=== PATIENT | female | born 1945 | race Caucasian/White ===

== ENCOUNTER 2016-11-15 09:51 | Inpatient (IN) | payer OTHER ==
[2016-11-15 09:56] VITALS: BMI 32.0
--- NOTE | 2016-11-15 10:12 | DR.GENAD ---
HPI - PCP Primary Care Physician: GLEN - Complaint/Symptoms Chief Complaint Doctors Comments: History of gi problems on zofran, phenergan and protonix. Complaint of vomiting diarrhea and burning in stomach Chief Complaint:: PT. C/O CHEST BURNING, N/V, AND UNABLE TO EAT X 4 DAYS. - Nurses notes reviewed Nurses Notes Review: Yes - Source History Provided: Patient - Mode of Arrival Mode of Arrival: Ambulatory - Timing Onset of Chief Complaint: 11/11/16 Came on: Gradually - Duration Duration: Intermittent How lon Duration: Days - Location Location: food - Severity Severity: Moderate - Modifying Factors Worsens:: food - Associated Signs and Symptoms Associated Signs and Symptoms: confusion PMH - PMH Past Medical History: Yes Past Medical History: Coronary Artery Disease, Diabetes, Hypertension, Hypothyroidism Past Surgical History: Yes Surgical History: Cholecystectomy, Hysterectomy, Mastectomy, Tonsillectomy - Family History History of Family Medical Conditions: Yes Family Medical History: Diabetes Mellitus, [place] - Social History Does patient currently use any type of tobacco product: No Have you used tobacco products in the last 12 months: No Type of Tobacco Use: None Does any household member use tobacco: No Alcohol Use: None Do you use any recreational Drugs:: No Lives With: Spouse Lives Where: Home - infectious screening In the last 2 months have you had wt loss of >10#?: NO Have you had fever, night sweats or hemotysis?: No Have you traveled outside the country in the last 6 months?: No Isolation: Standard ROS - Review of Systems Constitutional: No Symptoms Reported Eyes: No Symptoms Reported ENTM: No Symptoms Reported Respiratoy: No Symptoms Reported Cardiovascular: No Symptoms Reported Gastrointestinal/Abdominal: Diarrhea, Nausea, Vomiting Genitourinary: No Symptoms Reported Musculoskeletal: No Symptoms Reported Integumentary: No Symptoms Reported Hematologic/Lymphatic: No Symptoms Reported Endocrine: Increased Thirst Psychiatric: Depression All Other Systems: Reviewed and Negative PE - Vital Signs Vitals: Temperature 97.3 F Pulse Rate 100 Respiratory Rate 17 Blood Pressure [Left Arm] 171/93 Blood Pressure [Right Arm] 166/72 Blood Pressure 166/87 O2 Sat by Pulse Oximetry 95 - General Limitations: No Limitations General Appearance: Alert, In No Apparent Distress - Head Head Exam: Normal Inspection - Eyes Eye exam: Normal Appearance, EOMI. negative: Scleral Icterus, Conjunctival Injection - ENT ENT Exam: Normal Exam, Normal Oropharynx External Ear Exam: Normal External Inspection Mouth Exam: Normal Inspection - Neck Neck Exam: Normal Inspection, Full ROM, Trachea Midline - Chest Chest Inspection: Normal Inspection - Respiratory Respiratory Exam: Normal Lung Sounds Bilat. negative: Accessory Muscle Use, Respiratory Distress Respiratory Exam: Bilateral Clear to Auscultation - Cardiovascular Cardiovascular Exam: Tachycardia - Abdominal Exam Abdominal Exam: Normal Inspection, Normal Bowel Sounds, Soft. negative: Distention, Tenderness, Guarding - Extremities Extremities Exam: Normal Inspection, Full ROM - Neurologic Neurological Exam: Alert, Oriented X3, CN II-XII Intact - Psychiatric Psychiatric Exam: Depressed - Skin Skin Exam: Intact, Normal Color ROR - Labs Reviewed Result Diagrams: 11/19/16 05:55 11/19/16 05:55 Laboratory: WBC 14.1 X10^3/uL (3.6-10.0) H 11/15/16 11:10 RBC 4.90 X10^6/uL (3.5-5.4) 11/15/16 11:10 Hgb 14.2 g/dL (12.0-16.0) 11/15/16 11:10 Hct 42.1 % (36.0-47.0) 11/15/16 11:10 MCV 85.9 fL (80.0-100.0) 11/15/16 11:10 MCH 29.1 pg (27.0-34.0) 11/15/16 11:10 MCHC 33.8 g/dL (33.0-35.0) 11/15/16 11:10 RDW 12.9 % (11.6-16.5) 11/15/16 11:10 Plt Count 301 X10^3/uL (150.0-450.0) 11/15/16 11:10 MPV 9.9 fL (7.4-11.0) 11/15/16 11:10 Neut % 71.5 % (42.0-75.0) 11/15/16 11:10 Lymph % 18.4 % (21.0-51.0) L 11/15/16 11:10 [place] % 9.6 % (0.0-13.0) 11/15/16 11:10 Eos % 0.0 % (0.9-2.9) L 11/15/16 11:10 Baso % 0.5 % (0.2-1.0) 11/15/16 11:10 Neut # 10.1 x10^3/uL (2.2-4.8) H 11/15/16 11:10 Lymph # 2.6 X10^3/uL (1.3-2.9) 11/15/16 11:10 [place] # 1.4 x10^3/uL (0.3-0.8) H 11/15/16 11:10 Eos # 0.0 x10^3/uL (0.0-0.2) 11/15/16 11:10 Baso # 0.1 X10^3/uL (0.0-0.1) 11/15/16 11:10 Absolute Nucleated RBC 0.0 /100WBC 11/15/16 11:10 Sodium 128 mmol/L (136-145) L 11/15/16 11:10 Corrected Sodium 133 mmol/L (136-145) L 11/15/16 11:10 Potassium 3.9 mmol/L (3.5-5.1) 11/15/16 11:10 Chloride 91 mmol/L (98-107) L 11/15/16 11:10 Carbon Dioxide 22.5 mmol/L (21-32) 11/15/16 11:10 BUN 49 mg/dL (7-18) H 11/15/16 11:10 Creatinine 1.38 mg/dL (0.55-1.02) H 11/15/16 11:10 Est GFR (MDRD) Af Amer 48 (>60) L 11/15/16 11:10 Est GFR (MDRD) Non-Af 40 (>60) L 11/15/16 11:10 Glucose 297 mg/dL (65-99) H 11/15/16 11:10 Calcium 8.3 mg/dL (8.5-10.1) L 11/15/16 11:10 Corrected Calcium TNP 11/15/16 11:10 Total Bilirubin 0.40 mg/dL (0.2-1.0) 11/15/16 11:10 AST 38 Units/L (15-37) H 11/15/16 11:10 ALT 42 Units/L (12-78) 11/15/16 11:10 Alkaline Phosphatase 57 Units/L (46-116) 11/15/16 11:10 Troponin I 0.04 ng/mL (0-1.5) 11/15/16 11:10 Total Protein 7.4 g/dL (6.4-8.2) 11/15/16 11:10 Albumin 3.8 g/dL (3.4-5.0) 11/15/16 11:10 Globulin 3.6 g/dL (2.5-4.5) 11/15/16 11:10 Albumin/Globulin Ratio 1.1 Ratio (1.1-2.1) 11/15/16 11:10 Amylase 143 Units/L (25-115) H 11/15/16 11:10 Lipase 2176 Units/L (73-393) H 11/15/16 11:10 - XRAY XRAY Interpreted by: Radiologist XRAY Findings: AAS: normal - Diagnosis Discharge Problem: Pancreatitis Qualifiers: Chronicity: acute Pancreatitis type: idiopathic Acute pancreatitis complication : unspecified Qualified Code(s): K85.00 - Idiopathic acute pancreatitis without necrosis or infection - Discharge Plan Disposition: ADMITTED INPATIENT Condition: Stable - Follow ups/Referrals - Instructions
[2016-11-15] MEDS ORDERED: ZOFRAN INJ 4 MG VIAL IVP ONE ×2 (10:26→12:54)
[2016-11-15] MEDS ORDERED: NS 500 ML IV 500 ML IV ONE (10:26)
[2016-11-15] MEDS ORDERED: PROTONIX INJ 40 MG VIAL IVP ONE (10:27)
[2016-11-15] MEDS ORDERED: ZOFRAN INJ 4 MG VIAL ONE (10:32)
[2016-11-15] MEDS ORDERED: NS 1000 ML 1,000 ML ONE (10:32)
[2016-11-15] MEDS ORDERED: PROTONIX INJ 40 MG VIAL ONE (10:32)
[2016-11-15 11:26] LABS: BASOPHILS # (AUTO) 0.1 X10^3/uL (0.0-0.1); BASOPHILS % (AUTO) 0.5 % (0.2-1.0); HEMATOCRIT 42.1 % (36.0-47.0); HEMOGLOBIN 14.2 g/dL (12.0-16.0); LYMPHOCYTES # (AUTO) 2.6 X10^3/uL (1.3-2.9); LYMPHOCYTES % (AUTO) 18.4 % (21.0-51.0); MEAN CORPUSCULAR HEMOGLOBIN 29.1 pg (27.0-34.0); MEAN CORPUSCULAR HGB CONC 33.8 g/dL (33.0-35.0); MEAN CORPUSCULAR VOLUME 85.9 fL (80.0-100.0); MEAN PLATELET VOLUME 9.9 fL (7.4-11.0); MONOCYTES # (AUTO) 1.4 x10^3/uL (0.3-0.8); MONOCYTES % (AUTO) 9.6 % (0.0-13.0); NEUTROPHILS # (AUTO) 10.1 x10^3/uL (2.2-4.8); NEUTROPHILS % (AUTO) 71.5 % (42.0-75.0); PLATELET COUNT 301 X10^3/uL (150.0-450.0); RED CELL DISTRIBUTION WIDTH 12.9 % (11.6-16.5); WHITE BLOOD COUNT 14.1 X10^3/uL (3.6-10.0)
[2016-11-15 11:45] LABS: ALANINE AMINOTRANSFERASE 42 Units/L (12-78); ALBUMIN 3.8 g/dL (3.4-5.0); ALKALINE PHOSPHATASE 57 Units/L (46-116); AMYLASE 143 Units/L (25-115); ASPARTATE AMINO TRANSFERASE 38 Units/L (15-37); BLOOD UREA NITROGEN 49 mg/dL (7-18); CALCIUM 8.3 mg/dL (8.5-10.1); CARBON DIOXIDE 22.5 mmol/L (21-32); CHLORIDE 91 mmol/L (98-107); COR NA(FOR HYPERGLY) 133 mmol/L (136-145); CREATININE 1.38 mg/dL (0.55-1.02); GLUCOSE 297 mg/dL (65-99); SODIUM 128 mmol/L (136-145); TOTAL PROTEIN 7.4 g/dL (6.4-8.2); TROPONIN I 0.04 ng/mL (0-1.5); eGFR BLACK RACES 48 (>60); eGFR NON BLACK RACES 40 (>60)
[2016-11-15 11:46] LABS: LIPASE 2176 Units/L (73-393)
[2016-11-15] MEDS ORDERED: PHENERGAN INJ 25 MG ONE (11:53)
[2016-11-15] MEDS ORDERED: PHENERGAN INJ 25 MG IV ONE (11:53)
--- NOTE | 2016-11-15 11:58 | RAD ---
HISTORY: Burning in chest, nausea, vomiting Study: Acute abdominal series Comparison: June 27, 2016 Findings: The trachea is midline. The cardiac silhouette is unremarkable. The lungs are clear without focal infiltrate or effusion. The bony thorax is unremarkable. Flat plate and upright evaluation of the abdomen demonstrates a nonspecific, nonobstructive bowel ga s pattern. No pneumoperitoneum is identified.. No pathological soft tissue mass or calcification ca n be observed. The bony structures are grossly intact. IMPRESSION: 1. No acute cardiopulmonary disease. 2. No evidence for acute abdominal pathology identified. Reported By:
[2016-11-15] MEDS ORDERED: ZOFRAN INJ 4 MG VIAL IVP PRN (12:56)
--- NOTE | 2016-11-15 14:29 | CT ---
HISTORY: Nausea, abdominal pain Study: CT abdomen pelvis without contrast Comparison: May 22, 2016 Technique: Axial non contrast images with coronal and sagittal reformats. Dose reduction procedures were used with MA/kv adjusted for body size. The lack of intravenous and oral contrast placs limitat ions on this examination. Findings: The lung bases are clear. There is a hiatal hernia present. The liver, spleen, adrenal glands are no rmal. The tail and body of the pancreas is normal. The head of the pancreas is upper limits normal i n size and there appear to be some areas of decreased attenuation within the head of the pancreas wh ich could be related to inflammation or less likely mass. Pancreatic protocol CT with and without co ntrast is recommended for further evaluation. The kidneys are unobstructed and without stones. No ur eteral calculi are identified. Calcific atherosclerotic change is present in a nondilated abdominal aorta. No intraperitoneal or retroperitoneal lymphadenopathy of significance is identified. There ar e no findings suggestive of diverticulitis or colitis. Examination of the pelvis demonstrated no asmita dence for pelvic masses, pelvic fluid, or pelvic lymphadenopathy no significant bladder abnormality is identified. No lytic or blastic skeletal lesions are identified. IMPRESSION: No definite findings suggestive of acute pancreatitis however there is a question of some irregular lucency within the pancreatic head. Evaluation with pancreatic protocol enhance unenhanced CT is rec ommended in order to do term if there is a significant abnormality in the pancreatic head. Small hiatal hernia Reported By:
[2016-11-15] MEDS: INVANZ INJ 1 GM VIAL 0.5 GM in NS 50 ML IV 50 ML IV SCH ×2 (15:36→21:37)
[2016-11-15] MEDS: NS 1000 ML 1,000 ML IV SCH (15:37)
[2016-11-15] MEDS ORDERED: PHENERGAN INJ 25 MG IM PRN (20:51)
[2016-11-15] MEDS ORDERED: HumuLIN R SC PRN (20:54)
[2016-11-15] MEDS: DILAUDID INJ IVP PRN (21:38)
[2016-11-16] MEDS: DILAUDID INJ IVP PRN ×2 (01:18→22:32)
[2016-11-16 05:11] LABS: AMYLASE 137 Units/L (25-115)
[2016-11-16 05:14] LABS: LIPASE 2011 Units/L (73-393)
[2016-11-16 05:29] LABS: ALBUMIN 3.3 g/dL (3.4-5.0); CARBON DIOXIDE 25.8 mmol/L (21-32); COR CA(FOR HYPOALB) 8.6 mg/dL (8.5-10.1); CREATININE 1.28 mg/dL (0.55-1.02); TOTAL PROTEIN 6.5 g/dL (6.4-8.2)
[2016-11-16] MEDS ORDERED: K-DUR TAB 20 MEQ PO PRN (05:39)
[2016-11-16] MEDS ORDERED: POTASSIUM CHLORIDE LIQ 20 MEQ UDC PO PRN (05:39)
[2016-11-16] MEDS ORDERED: K-LYTE EFFERVESCENT PO PRN (05:39)
[2016-11-16] MEDS ORDERED: K-RIDER 10 MEQ/NS 100 ML 10 MEQ/100 ML BAG IV PRN (05:39)
[2016-11-16] MEDS: NS 1000 ML 1,000 ML IV SCH ×4 (05:47→22:30)
[2016-11-16 06:41] LABS: BASOPHILS # (AUTO) 0.1 X10^3/uL (0.0-0.1); BASOPHILS % (AUTO) 0.5 % (0.2-1.0); EOSINOPHILS # (AUTO) 0.1 x10^3/uL (0.0-0.2); EOSINOPHILS % (AUTO) 1.1 % (0.9-2.9); HEMATOCRIT 40.7 % (36.0-47.0); HEMOGLOBIN 13.5 g/dL (12.0-16.0); LYMPHOCYTES # (AUTO) 4.4 X10^3/uL (1.3-2.9); LYMPHOCYTES % (AUTO) 37.1 % (21.0-51.0); MEAN CORPUSCULAR HEMOGLOBIN 28.7 pg (27.0-34.0); MEAN CORPUSCULAR HGB CONC 33.2 g/dL (33.0-35.0); MEAN CORPUSCULAR VOLUME 86.5 fL (80.0-100.0); MONOCYTES # (AUTO) 1.4 x10^3/uL (0.3-0.8); MONOCYTES % (AUTO) 11.8 % (0.0-13.0); NEUTROPHILS # (AUTO) 5.9 x10^3/uL (2.2-4.8); NEUTROPHILS % (AUTO) 49.5 % (42.0-75.0); PLATELET COUNT 350 X10^3/uL (150.0-450.0); RED BLOOD COUNT 4.71 X10^6/uL (3.5-5.4); RED CELL DISTRIBUTION WIDTH 12.9 % (11.6-16.5); WHITE BLOOD COUNT 11.9 X10^3/uL (3.6-10.0)
[2016-11-16] MEDS: INVANZ INJ 1 GM VIAL 1 GM in NS 50 ML IV + SPIKE MINIBAG* 50 ML IV SCH (09:03)
[2016-11-16] MEDS ORDERED: ZANAFLEX PO PRN (11:09)
[2016-11-16] MEDS: PROTONIX TAB 40 MG PO SCH (11:56)
[2016-11-16] MEDS: TRICOR TAB 145 MG PO SCH (11:56)
[2016-11-16] MEDS: NORVASC TAB 10 MG PO SCH (11:56)
[2016-11-16 16:21] LABS: BILIRUBIN,URINE NEGATIVE (NEGATIVE); BLOOD/HEMOGLOBIN,URINE NEGATIVE (NEGATIVE); GLUCOSE, URINE NEGATIVE (NEGATIVE); KETONES,URINE NEGATIVE (NEGATIVE); LEUKOCYTE ESTERASE ,URINE 1+ (NEGATIVE); NITRITES,URINE NEGATIVE (NEGATIVE); PROTEIN,URINE 3+ (NEGATIVE); UROBILINOGEN,URINE NORMAL (NORMAL)
[2016-11-16] MEDS: SYNTHROID 125 mcg TAB PO SCH (16:25)
[2016-11-16 16:34] LABS: COLOR,URINE YELLOW (YELLOW)
[2016-11-16 16:35] LABS: APPEARANCE,URINE CLEAR (CLEAR); BACTERIA,URINE TRACE /HPF (NEGATIVE); RBC,URINE NEGATIVE /HPF (NEGATIVE); SQUAMOUS EPITHELIAL CELL,UR RARE /HPF (NEGATIVE)
--- NOTE | 2016-11-16 16:42 | DR.H&P ---
H&P - History & Physical for Day of: H&P Date: 11/15/16 - Chief Complaint Chief Complaint: NAUSEA, VOMITING, ABDOMINAL PAIN - Allergies Allergies/Adverse Reactions: Allergies Allergy/AdvReac Type Severity Reaction Status Date / Time Acetaminophen [From Lortab] Allergy Verified 11/15/16 09:56 Aluminum Hydroxide Allergy Verified 11/15/16 09:56 [From Ascriptin] Aripiprazole [From Abilify] Allergy Verified 11/15/16 09:56 Aspirin [From Ascriptin] Allergy Verified 11/15/16 09:56 Bee Pollen Allergy Verified 11/15/16 09:56 Calcium Carbonate Allergy Verified 11/15/16 09:56 [From Ascriptin] Coconut Oil Allergy Verified 11/15/16 09:56 Codeine Allergy Verified 11/15/16 09:56 Hydrocodone [From Lortab] Allergy Verified 11/15/16 09:56 Latex Allergy Verified 11/15/16 09:56 Levetiracetam [From Keppra] Allergy Verified 11/15/16 09:56 Metformin Allergy Verified 11/15/16 09:56 Niacin Allergy Verified 11/15/16 09:56 Oxycodone [From Percocet] Allergy Verified 11/15/16 09:56 Pregabalin [From Lyrica] Allergy Verified 11/15/16 09:56 Propoxyphene [From Darvon-N] Allergy Verified 11/15/16 09:56 Propranolol [From Inderal LA] Allergy Verified 11/15/16 09:56 Red Dye Allergy Verified 11/15/16 09:56 Rosuvastatin [From Crestor] Allergy Verified 11/15/16 09:56 - History of Present Illness History of Present Illness: THIS IS A 71 YEAR OLD FEMALE, WHO IS A PATIENT OF DR. CONNELL. SHE PRESENTS TO THE EMERGENCY ROOM WITH COMPLAINTS OF NAUSEA, VOMITING, AND ABDOMINAL PAIN. SHE IS ALSO REPORTING BURNING SENSATION IN HER STOMACH. SHE STATES SHE HAS BEEN UNABLE TO EAT FOR FOUR DAYS. SHE REPORTS DIARRHEA ALSO. LABS, CT OBTAINED IN ER. CBC WNL EXCEPT: WBC 14.1. CMP WNL EXCEPT: SODIUM 128, CHL 91, BUN/CREAT 49/1.38. GFR 40, GLUCOSE 297, CALCIUM 8.3. AMYLASE 143, LIPASE 2176. EKG: SINUS RHYTHM, RATE 99. CT OF ABD/PELVIS: IRREGULAR LUCENCY WITHING THE PANCREATIC HEAD; SMALL HIATAL HERNIA. WE WILL ADMIT PATIENT FOR FURTHER TREATMENT AND EVALUATION. WE WILL TREAT PATIENT FOR ACUTE PANCREATITIS AND DEHYDRATION. WE WILL FOLLOW UP IN AM WITH LABS. - Past Medical History Past Medical History: Anemia, Anxiety, Arthritis, COPD, Coronary Artery Disease , Diabetes, Dyslipidemia, GERD, Hypertension, Hypothyroidism, Renal Disease Additional Medical History: Diabetic Neuropathy, Chronic Back Pain, Fibrocystic Breast Disease, Crohns Disease, Fibromyalgia, Mitral Valve Leak, Valvular Heart Disease, Bronchitits, Uterine Fibroids, Diarrhea, Fibromyalgia, Restless Leg Syndrome, Parathyroid Disease, Previous Blood Transfusion - Past Surgical History Surgical History: Cholecystectomy, Hysterectomy, Mastectomy, Tonsillectomy, Other Additional Surgical History: Bilateral Mastectomy due to stones - Family History Family Medical History: Diabetes Mellitus, [place] - Social History Does patient currently use any type of tobacco product: No Have you used tobacco products in the last 12 months: No Type of Tobacco Use: None Does any household member use tobacco: No Alcohol Use: None Drug Use: None - Medications Home Medications: Amlodipine Besylate [NORVASC 10 MG *] 10 mg PO DAILY 05/22/16 Eszopiclone [Lunesta] 1 tab PO HS 05/22/16 Fenofibrate [TRICOR 145 MG *] 145 mg PO DAILY 05/22/16 Insulin Degludec [Tresiba Flextouch] 40 unit SC HS 05/22/16 Levocetirizine Dihydrochloride [Levocetirizine Dihydrochl] 5 mg PO HS Levothyroxine Sodium [SYNTHROID 125 mcg *] 1 tab PO DAILYAC 05/22/16 Pantoprazole Sodium 40 mg [PROTONIX 40 MG *] 1 tab PO DAILY 05/22/16 Ranitidine HCl [Zantac] 300 mg PO HS 05/22/16 Ropinirole Hydrochloride [Ropinirole HCl] 0.5 mg PO HS 05/22/16 Tizanidine HCl [Zanaflex] 4 mg PO Q8H PRN 05/22/16 Tramadol HCl [ULTRAM 50 MG *] 1 - 2 tab PO QID PRN 05/22/16 Gabapentin 800 mg PO TIDWM 05/23/16 Insulin Lispro (Human) [Humalog Kwikpen] 0 units SUBCUT QID PRN 06/27/16 Potassium Chloride Cap [MICRO K EXTENCAP 10 mEQ *] 10 meq PO DAILY #30 cap Chlorthalidone [HYGROTON 25 mg tab *] 25 mg PO BID 11/15/16 Venlafaxine HCl [Venlafaxine HCl ER] 150 mg PO DAILY 11/15/16 - Review of Systems Constitutional: Weakness, Malaise Eyes: No Symptoms Reported. denies: Pain, Vision Change, Conjunctivae Inflammation, Eyelid Inflammation, Redness ENT: No Symptoms Reported. denies: Ear Pain, Ear Discharge, Nose Pain, Nose Discharge, Nose Congestion, Mouth Pain, Mouth Swelling, Throat Pain, Throat Swelling Respiratory: No Symptoms Reported. denies: Cough, Shortness of Breath, Hemoptysis, SOB with Excertion, Pleuritic Pain, Sputum, Wheezing Cardiovascular: No Symptoms Reported. denies: Chest Pain, Palpitations, Orthopnea, Paroxysmal Noc. Dyspnea, Edema, Light Headedness Gastrointestinal: Nausea, Vomiting, Abdominal Pain, Diarrhea. denies: Constipation, Melena, Hematochezia Genitourinary: No Symptoms Reported. denies: Dysuria, Frequency, Incontinence, Hematuria, Retention Musculoskeletal: No Symptoms Reported. denies: Shoulder Pain, Arm Pain, Back Pain, Hand Pain, Leg Pain, Foot Pain, Neck Pain Skin: No Symptoms Reported. denies: Rash, Lesions, Jaundice, Bruising, Wound, Ecchymosis Neurological: No Symptoms Reported. denies: Weakness, Numbness, Incoordination , Change in Speech, Confusion, Seizures - Physical Exam Vital Signs: Temperature 97.5 F Pulse Rate [Left Brachial] 84 Respiratory Rate 20 Blood Pressure [Left Arm] 152/69 O2 Sat by Pulse Oximetry 98 Oriented: Normal, Time, Person, Place Eyes: Normal. negative: Blurred Vision, Diplopia, Discharge, Pain, Redness, Photophobia Ear: Normal. negative: Swelling, Ecchymosis, Hemotypanum, Abrasion, Laceration Nose: Normal. negative: Injected, Discharge, Blood Throat: Dry. negative: Tonsillar Hypertrophy, Exudate Respiratory: Clear Throughout Cardiovascular: Normal. negative: Murmur, Edema : Normal. negative: Dysuria, Hematuria, Frequency, Discharge, Bleeding, Auscultation: Bowel Sounds: Decreased. negative: Bruit Palpation: Normal. negative: Spleen Enlarged, Liver Enlarged, Mass Pulsatile Tenderness: Diffuse, Suprapubic, Severe. negative: Rebound, Guarding, Rigidity Skin: Decreased Turgur. negative: Diaphoresis, Wound, Bruising, Ecchymosis Musculoskeletal: Instability Psychiatric: Normal Mood Description: Calm, Appropriate Affect: Normal Speech Pattern: Clear, Appropriate - Assessment/Plan (1) Pancreatitis Qualifiers: Chronicity: acute Pancreatitis type: idiopathic Acute pancreatitis complication: A Status: Acute Plan: ADMIT PATIENT, START IV INVANZ, IV FLUIDS, HOLD NPO, MONITOR LABS. (2) Abdominal pain Qualifiers: Abdominal location: generalized Qualified Code(s): R10.84 - Generalized abdominal pain Status: Acute Plan: START IV FLUIDS, PROTONIX, DILAUDID NEEDED, MONITOR. (3) Dehydration Status: Acute Plan: ABOVE. (4) COPD (chronic obstructive pulmonary disease) Qualifiers: Chronic bronchitis type: C Emphysema type: E Status: Chronic (5) Crohn's disease Qualifiers: Gastrointestinal tract location: G Digestive disease complication type: D Status: Chronic (6) Diabetes mellitus, type 2 Qualifiers: Diabetes mellitus complication status: with kidney complications Diabetes mellitus complication detail: with chronic kidney disease Diabetic retinopathy severity: D Proliferative retinopathy type: P Diabetes mellitus macular edema: D Diabetes mellitus terminal operations manager insulin use: with terminal operations manager use Laterality: L Chronic kidney disease stage: C Status: Chronic (7) Fibromyalgia Status: Chronic (8) GERD (gastroesophageal reflux disease) Qualifiers: Esophagitis presence: esophagitis presence not specified Qualified Code(s) : K21.9 - Gastro-esophageal reflux disease without esophagitis Status: Chronic (9) History of anemia Status: Chronic (10) Hyperlipidemia Qualifiers: Hyperlipidemia type: mixed hyperlipidemia Qualified Code(s): E78.2 - Mixed hyperlipidemia Status: Chronic (11) Hypothyroidism Qualifiers: Hypothyroidism type: acquired Qualified Code(s): E03.9 - Hypothyroidism, unspecified Status: Chronic (12) Parathyroid disease Status: Chronic (13) Renal disease Status: Chronic (14) Valvular heart disease Status: Chronic (15) Arthritis Status: Chronic
--- NOTE | 2016-11-16 17:32 | PCM.PROG ---
Progress Note - Progress Note for Day of Date: 11/16/16 - Subjective Subjective: PATIENT RESTS IN BED, REPORTS ABDOMINAL PAIN CONTINUES. SHE ALSO REPORTS NAUSEA THIS MORNING. SHE IS NPO EXCEPT ICE CHIPS. UPON PALPATION, ABDOMEN IS NOTED WITH DIFFUSE, SEVERE TENDERNESS. CBC WNL EXCEPT: WBC 11.9. CMP WNL EXCEPT: POTASSIUM 3.1, BUN/CREAT 37/1.28, GFR 44, GLUCOSE 123, CALCIUM8.0, ALBUMIN 3.3. AMYLASE 137. LIPASE 2011. WE WILL CONTINUE IV FLUIDS , HOLD PATIENT NPO, CONTINUE INVANZ, DILAUDID, PROTONIX, AND CONTINUE TO MONITOR. - Past Medical Family Social History Past Med/Fam/Surg Hx: No changes since H&P Allergies: Allergies Acetaminophen [From Lortab] Allergy (Verified 11/15/16 09:56) Aluminum Hydroxide [From Ascriptin] Allergy (Verified 11/15/16 09:56) Aripiprazole [From Abilify] Allergy (Verified 11/15/16 09:56) Aspirin [From Ascriptin] Allergy (Verified 11/15/16 09:56) Bee Pollen Allergy (Verified 11/15/16 09:56) Calcium Carbonate [From Ascriptin] Allergy (Verified 11/15/16 09:56) Coconut Oil Allergy (Verified 11/15/16 09:56) Codeine Allergy (Verified 11/15/16 09:56) Hydrocodone [From Lortab] Allergy (Verified 11/15/16 09:56) Latex Allergy (Verified 11/15/16 09:56) Levetiracetam [From Keppra] Allergy (Verified 11/15/16 09:56) Metformin Allergy (Verified 11/15/16 09:56) Niacin Allergy (Verified 11/15/16 09:56) Oxycodone [From Percocet] Allergy (Verified 11/15/16 09:56) Pregabalin [From Lyrica] Allergy (Verified 11/15/16 09:56) Propoxyphene [From Darvon-N] Allergy (Verified 11/15/16 09:56) Propranolol [From Inderal LA] Allergy (Verified 11/15/16 09:56) Red Dye Allergy (Verified 11/15/16 09:56) Rosuvastatin [From Crestor] Allergy (Verified 11/15/16 09:56) - Review of Systems ROS: No change since H&P - Vital Signs and I&O's Vital Signs: Temperature 97.5 F Pulse Rate [Left Brachial] 84 Respiratory Rate 20 Blood Pressure [Left Arm] 152/69 O2 Sat by Pulse Oximetry 98 Intake and Output: Intake & Output 11/14/16 11/15/16 11/16/16 11/17/16 11:59 11:59 11:59 11:59 Intake Total 640 400 Output Total 200 Balance 440 400 - Physical Exam Oriented: Normal, Time, Person, Place Eyes: Normal. negative: Blurred Vision, Diplopia, Discharge, Pain, Redness, Photophobia Ear: Normal. negative: Swelling, Ecchymosis, Hemotypanum, Abrasion, Laceration Nose: Normal. negative: Injected, Discharge, Blood Throat: Dry. negative: Tonsillar Hypertrophy, Exudate Respiratory: Normal Cardiovascular: Normal. negative: Murmur, Edema : Normal. negative: Dysuria, Hematuria, Frequency, Discharge, Bleeding, Auscultation: Bowel Sounds: Decreased. negative: Bruit Palpation: Normal. negative: Spleen Enlarged, Liver Enlarged, Mass Pulsatile Tenderness: Diffuse, Suprapubic, Severe. negative: Rebound, Guarding, Rigidity Skin: Decreased Turgur. negative: Diaphoresis, Wound, Bruising, Ecchymosis Musculoskeletal: Instability Psychiatric: Normal Mood Description: Calm, Appropriate Affect: Normal Speech Pattern: Clear, Appropriate - Laboratory and Diagnostics Result Diagrams: 11/16/16 05:40 11/16/16 07:56 Labs: Laboratory WBC 11.9 X10^3/uL (3.6-10.0) H 11/16/16 05:40 RBC 4.71 X10^6/uL (3.5-5.4) 11/16/16 05:40 Hgb 13.5 g/dL (12.0-16.0) 11/16/16 05:40 Hct 40.7 % (36.0-47.0) 11/16/16 05:40 MCV 86.5 fL (80.0-100.0) 11/16/16 05:40 MCH 28.7 pg (27.0-34.0) 11/16/16 05:40 MCHC 33.2 g/dL (33.0-35.0) 11/16/16 05:40 RDW 12.9 % (11.6-16.5) 11/16/16 05:40 Plt Count 350 X10^3/uL (150.0-450.0) 11/16/16 05:40 MPV 10.0 fL (7.4-11.0) 11/16/16 05:40 Neut % 49.5 % (42.0-75.0) 11/16/16 05:40 Lymph % 37.1 % (21.0-51.0) 11/16/16 05:40 [place] % 11.8 % (0.0-13.0) 11/16/16 05:40 Eos % 1.1 % (0.9-2.9) 11/16/16 05:40 Baso % 0.5 % (0.2-1.0) 11/16/16 05:40 Neut # 5.9 x10^3/uL (2.2-4.8) H 11/16/16 05:40 Lymph # 4.4 X10^3/uL (1.3-2.9) H 11/16/16 05:40 [place] # 1.4 x10^3/uL (0.3-0.8) H 11/16/16 05:40 Eos # 0.1 x10^3/uL (0.0-0.2) 11/16/16 05:40 Baso # 0.1 X10^3/uL (0.0-0.1) 11/16/16 05:40 Absolute Nucleated RBC 0.3 /100WBC 11/16/16 05:40 Sodium 139 mmol/L (136-145) 11/16/16 03:50 Corrected Sodium 140 mmol/L (136-145) 11/16/16 03:50 Potassium 3.3 mmol/L (3.5-5.1) L 11/16/16 07:56 Chloride 102 mmol/L (98-107) 11/16/16 03:50 Carbon Dioxide 25.8 mmol/L (21-32) 11/16/16 03:50 BUN 37 mg/dL (7-18) H 11/16/16 03:50 Creatinine 1.28 mg/dL (0.55-1.02) H 11/16/16 03:50 Est GFR (MDRD) Af Amer 53 (>60) L 11/16/16 03:50 Est GFR (MDRD) Non-Af 44 (>60) L 11/16/16 03:50 Glucose 123 mg/dL (65-99) H 11/16/16 03:50 Calcium 8.0 mg/dL (8.5-10.1) L 11/16/16 03:50 Corrected Calcium 8.6 mg/dL (8.5-10.1) 11/16/16 03:50 Total Bilirubin 0.30 mg/dL (0.2-1.0) 11/16/16 03:50 AST 27 Units/L (15-37) 11/16/16 03:50 ALT 35 Units/L (12-78) 11/16/16 03:50 Alkaline Phosphatase 52 Units/L (46-116) 11/16/16 03:50 Troponin I 0.04 ng/mL (0-1.5) 11/15/16 11:10 Total Protein 6.5 g/dL (6.4-8.2) 11/16/16 03:50 Albumin 3.3 g/dL (3.4-5.0) L 11/16/16 03:50 Globulin 3.2 g/dL (2.5-4.5) 11/16/16 03:50 Albumin/Globulin Ratio 1.0 Ratio (1.1-2.1) L 11/16/16 03:50 Amylase 137 Units/L (25-115) H 11/16/16 03:50 Lipase 2011 Units/L (73-393) H 11/16/16 03:50 Specimen Type Clean catch urine 11/16/16 15:49 Urine Color Yellow (YELLOW) 11/16/16 15:49 Urine Appearance Clear (CLEAR) 11/16/16 15:49 Urine pH 6.0 (5.0 - 8.0) 11/16/16 15:49 Ur Specific [place] 1.015 (1.000-1.030) 11/16/16 15:49 Urine Protein 3+ (NEGATIVE) 11/16/16 15:49 Urine Glucose (UA) Negative (NEGATIVE) 11/16/16 15:49 Urine Ketones Negative (NEGATIVE) 11/16/16 15:49 Urine Occult Blood Negative (NEGATIVE) 11/16/16 15:49 Urine Nitrite Negative (NEGATIVE) 11/16/16 15:49 Urine Bilirubin Negative (NEGATIVE) 11/16/16 15:49 Urine Urobilinogen Normal (NORMAL) 11/16/16 15:49 Ur Leukocyte Esterase 1+ (NEGATIVE) 11/16/16 15:49 Urine RBC Negative /HPF (NEGATIVE) 11/16/16 15:49 Urine WBC 2 - 3 /HPF (NEGATIVE) 11/16/16 15:49 Ur Squamous Epith Cells Rare /HPF (NEGATIVE) 11/16/16 15:49 Urine Bacteria Trace /HPF (NEGATIVE) 11/16/16 15:49 Ur Culture Indicated? No/not indicated 11/16/16 15:49 Acetone, Semi-Quant Negative (NEGATIVE) 11/15/16 11:10 - Plan (1) Pancreatitis Status: Acute Qualifiers: Chronicity: acute Pancreatitis type: idiopathic Acute pancreatitis complication: A Plan: CONTINUE IV INVANZ, IV FLUIDS, HOLD NPO, MONITOR LABS. (2) Abdominal pain Status: Acute Qualifiers: Abdominal location: generalized Qualified Code(s): R10.84 - Generalized abdominal pain Plan: CONTINUE IV FLUIDS, PROTONIX, DILAUDID NEEDED, MONITOR. (3) Dehydration Status: Acute Plan: ABOVE. 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 insulin use: with buttermilk drier operator use Laterality: L Chronic kidney disease stage: C (7) Fibromyalgia Status: Chronic (8) GERD (gastroesophageal reflux disease) Status: Chronic Qualifiers: Esophagitis presence: esophagitis presence not specified Qualified Code(s) : K21.9 - Gastro-esophageal reflux disease without esophagitis (9) History of anemia Status: Chronic (10) Hyperlipidemia Status: Chronic Qualifiers: Hyperlipidemia type: mixed hyperlipidemia Qualified Code(s): E78.2 - Mixed hyperlipidemia (11) Hypothyroidism Status: Chronic Qualifiers: Hypothyroidism type: acquired Qualified Code(s): E03.9 - Hypothyroidism, unspecified (12) Parathyroid disease Status: Chronic (13) Renal disease Status: Chronic (14) Valvular heart disease Status: Chronic (15) Arthritis Status: Chronic
[2016-11-16] MEDS ORDERED: [UNRECOGNIZED DRUG - OTHER] PO SCH (21:00)
[2016-11-16] MEDS ORDERED: PATIENT'S HOME MEDICATION RESPIRATORY (Ropinirole Hydrochloride [Ropinirole Hcl] 0.5 MG) PO SCH (21:00)
[2016-11-16] MEDS ORDERED: PATIENT'S HOME MEDICATION RESPIRATORY (Levocetirizine Dihydrochloride [Levocetirizine Dihy PO SCH (21:00)
[2016-11-16] MEDS ORDERED: [UNRECOGNIZED DRUG - OTHER] PO SCH (21:00)
[2016-11-16] MEDS: REQUIP PO SCH (22:30)
[2016-11-16] MEDS: ZANTAC PO SCH (22:31)
[2016-11-17] MEDS: NS 1000 ML 1,000 ML IV SCH ×4 (04:40→23:55)
[2016-11-17 06:02] LABS: ALANINE AMINOTRANSFERASE 28 Units/L (12-78); ALBUMIN 2.7 g/dL (3.4-5.0); ALKALINE PHOSPHATASE 46 Units/L (46-116); AMYLASE 139 Units/L (25-115); ASPARTATE AMINO TRANSFERASE 23 Units/L (15-37); BLOOD UREA NITROGEN 22 mg/dL (7-18); CALCIUM 7.8 mg/dL (8.5-10.1); CARBON DIOXIDE 23.3 mmol/L (21-32); CHLORIDE 106 mmol/L (98-107); COR CA(FOR HYPOALB) 8.8 mg/dL (8.5-10.1); CREATININE 0.95 mg/dL (0.55-1.02); GLUCOSE 100 mg/dL (65-99); SODIUM 139 mmol/L (136-145); TOTAL PROTEIN 5.4 g/dL (6.4-8.2); eGFR BLACK RACES > 60 (>60); eGFR NON BLACK RACES > 60 (>60)
[2016-11-17 06:06] LABS: LIPASE 1944 Units/L (73-393)
[2016-11-17 06:22] LABS: BASOPHILS # (AUTO) 0.1 X10^3/uL (0.0-0.1); BASOPHILS % (AUTO) 0.7 % (0.2-1.0); EOSINOPHILS # (AUTO) 0.4 x10^3/uL (0.0-0.2); EOSINOPHILS % (AUTO) 3.9 % (0.9-2.9); HEMATOCRIT 36.8 % (36.0-47.0); HEMOGLOBIN 12.2 g/dL (12.0-16.0); LYMPHOCYTES # (AUTO) 3.5 X10^3/uL (1.3-2.9); MEAN CORPUSCULAR HEMOGLOBIN 28.9 pg (27.0-34.0); MEAN CORPUSCULAR HGB CONC 33.2 g/dL (33.0-35.0); MEAN CORPUSCULAR VOLUME 87.1 fL (80.0-100.0); MEAN PLATELET VOLUME 9.9 fL (7.4-11.0); MONOCYTES # (AUTO) 1.1 x10^3/uL (0.3-0.8); MONOCYTES % (AUTO) 11.8 % (0.0-13.0); NEUTROPHILS # (AUTO) 4.3 x10^3/uL (2.2-4.8); NEUTROPHILS % (AUTO) 45.6 % (42.0-75.0); PLATELET COUNT 275 X10^3/uL (150.0-450.0); RED BLOOD COUNT 4.22 X10^6/uL (3.5-5.4); RED CELL DISTRIBUTION WIDTH 12.5 % (11.6-16.5); WHITE BLOOD COUNT 9.3 X10^3/uL (3.6-10.0)
[2016-11-17] MEDS: NORVASC TAB 10 MG PO SCH (08:45)
[2016-11-17] MEDS: PROTONIX TAB 40 MG PO SCH (08:45)
[2016-11-17] MEDS: INVANZ INJ 1 GM VIAL 1 GM in NS 50 ML IV + SPIKE MINIBAG* 50 ML IV SCH (08:45)
[2016-11-17] MEDS: TRICOR TAB 145 MG PO SCH (08:46)
[2016-11-17] MEDS: SYNTHROID 125 mcg TAB PO SCH (16:42)
[2016-11-17] MEDS: ZANTAC PO SCH (20:58)
[2016-11-17] MEDS: REQUIP PO SCH (20:59)
[2016-11-18] MEDS: DILAUDID INJ IVP PRN ×2 (00:10→12:11)
[2016-11-18] MEDS: NS 1000 ML 1,000 ML IV SCH ×3 (05:41→18:10)
[2016-11-18 06:12] LABS: BASOPHILS # (AUTO) 0.1 X10^3/uL (0.0-0.1); BASOPHILS % (AUTO) 0.8 % (0.2-1.0); EOSINOPHILS # (AUTO) 0.4 x10^3/uL (0.0-0.2); EOSINOPHILS % (AUTO) 5.3 % (0.9-2.9); HEMATOCRIT 34.6 % (36.0-47.0); HEMOGLOBIN 11.4 g/dL (12.0-16.0); LYMPHOCYTES # (AUTO) 3.2 X10^3/uL (1.3-2.9); LYMPHOCYTES % (AUTO) 37.9 % (21.0-51.0); MEAN CORPUSCULAR HEMOGLOBIN 28.7 pg (27.0-34.0); MEAN CORPUSCULAR VOLUME 87.1 fL (80.0-100.0); MEAN PLATELET VOLUME 10.4 fL (7.4-11.0); MONOCYTES # (AUTO) 0.8 x10^3/uL (0.3-0.8); MONOCYTES % (AUTO) 9.6 % (0.0-13.0); NEUTROPHILS # (AUTO) 3.9 x10^3/uL (2.2-4.8); NEUTROPHILS % (AUTO) 46.4 % (42.0-75.0); PLATELET COUNT 271 X10^3/uL (150.0-450.0); RED BLOOD COUNT 3.97 X10^6/uL (3.5-5.4); RED CELL DISTRIBUTION WIDTH 12.6 % (11.6-16.5); WHITE BLOOD COUNT 8.5 X10^3/uL (3.6-10.0)
[2016-11-18 06:33] LABS: ALANINE AMINOTRANSFERASE 27 Units/L (12-78); ALBUMIN 2.7 g/dL (3.4-5.0); ALKALINE PHOSPHATASE 51 Units/L (46-116); AMYLASE 149 Units/L (25-115); ASPARTATE AMINO TRANSFERASE 23 Units/L (15-37); BLOOD UREA NITROGEN 14 mg/dL (7-18); CALCIUM 7.9 mg/dL (8.5-10.1); CARBON DIOXIDE 23.2 mmol/L (21-32); CHLORIDE 107 mmol/L (98-107); COR CA(FOR HYPOALB) 8.9 mg/dL (8.5-10.1); CREATININE 0.76 mg/dL (0.55-1.02); GLUCOSE 95 mg/dL (65-99); SODIUM 140 mmol/L (136-145); TOTAL PROTEIN 5.4 g/dL (6.4-8.2); eGFR BLACK RACES > 60 (>60); eGFR NON BLACK RACES > 60 (>60)
[2016-11-18 06:34] LABS: LIPASE 1840 Units/L (73-393)
[2016-11-18] MEDS: INVANZ INJ 1 GM VIAL 1 GM in NS 50 ML IV + SPIKE MINIBAG* 50 ML IV SCH (09:13)
[2016-11-18] MEDS: PROTONIX TAB 40 MG PO SCH (09:13)
[2016-11-18] MEDS: NORVASC TAB 10 MG PO SCH (09:13)
[2016-11-18] MEDS: TRICOR TAB 145 MG PO SCH (09:13)
--- NOTE | 2016-11-18 13:21 | MRI ---
MRI OF THE ABDOMEN WITHOUT IV CONTRAST Clinical indication: Pancreatitis Procedure: Multiplanar multi sequence MRI of the abdomen were obtained without the administration of intravenous contrast according to standard departmental protocol. Comparisons: CT 11/15/2016 Findings: No significant iron or fat deposition in the liver or spleen. No significant ascites. Liver and spleen are normal in appearance. No focal lesions. Gallbladder appears to be absent. No du ctal dilatation. Pancreas demonstrates normal T1 signal. No pancreatic masses. Adrenal glands are no rmal. Kidneys demonstrate normal cortical medullary differentiation. No hydronephrosis. Visualized b owel is unremarkable. No suspicious lymph nodes. Impression: 1. Significantly limited secondary to patient's inability to hold breath. 2. No definite evidence of acute pancreatitis. Reported By:
[2016-11-18] MEDS: SYNTHROID 125 mcg TAB PO SCH (15:48)
[2016-11-18] MEDS: REQUIP PO SCH (20:31)
[2016-11-18] MEDS: ZANTAC PO SCH (20:31)
[2016-11-19 07:04] LABS: BASOPHILS # (AUTO) 0.1 X10^3/uL (0.0-0.1); BASOPHILS % (AUTO) 0.9 % (0.2-1.0); EOSINOPHILS # (AUTO) 0.4 x10^3/uL (0.0-0.2); EOSINOPHILS % (AUTO) 5.5 % (0.9-2.9); HEMATOCRIT 35.6 % (36.0-47.0); LYMPHOCYTES # (AUTO) 2.7 X10^3/uL (1.3-2.9); LYMPHOCYTES % (AUTO) 36.2 % (21.0-51.0); MEAN CORPUSCULAR HEMOGLOBIN 28.9 pg (27.0-34.0); MEAN CORPUSCULAR HGB CONC 33.7 g/dL (33.0-35.0); MEAN CORPUSCULAR VOLUME 85.8 fL (80.0-100.0); MEAN PLATELET VOLUME 10.1 fL (7.4-11.0); MONOCYTES # (AUTO) 0.8 x10^3/uL (0.3-0.8); MONOCYTES % (AUTO) 10.1 % (0.0-13.0); NEUTROPHILS # (AUTO) 3.5 x10^3/uL (2.2-4.8); NEUTROPHILS % (AUTO) 47.3 % (42.0-75.0); PLATELET COUNT 289 X10^3/uL (150.0-450.0); RED BLOOD COUNT 4.15 X10^6/uL (3.5-5.4); RED CELL DISTRIBUTION WIDTH 12.7 % (11.6-16.5); WHITE BLOOD COUNT 7.4 X10^3/uL (3.6-10.0)
[2016-11-19 07:10] LABS: ALANINE AMINOTRANSFERASE 30 Units/L (12-78); ALBUMIN 2.8 g/dL (3.4-5.0); ALKALINE PHOSPHATASE 52 Units/L (46-116); AMYLASE 139 Units/L (25-115); ASPARTATE AMINO TRANSFERASE 28 Units/L (15-37); BLOOD UREA NITROGEN 10 mg/dL (7-18); CALCIUM 8.4 mg/dL (8.5-10.1); CARBON DIOXIDE 23.7 mmol/L (21-32); CHLORIDE 108 mmol/L (98-107); COR CA(FOR HYPOALB) 9.4 mg/dL (8.5-10.1); COR NA(FOR HYPERGLY) 143 mmol/L (136-145); CREATININE 0.77 mg/dL (0.55-1.02); GLUCOSE 129 mg/dL (65-99); LIPASE > 1500 Units/L (73-393); SODIUM 142 mmol/L (136-145); TOTAL PROTEIN 5.8 g/dL (6.4-8.2); eGFR BLACK RACES > 60 (>60); eGFR NON BLACK RACES > 60 (>60)
[2016-11-19] MEDS: NS 1000 ML 1,000 ML IV SCH (08:27)
[2016-11-19] MEDS: INVANZ INJ 1 GM VIAL 1 GM in NS 50 ML IV + SPIKE MINIBAG* 50 ML IV SCH (08:28)
[2016-11-19] MEDS: NORVASC TAB 10 MG PO SCH (08:28)
[2016-11-19] MEDS: TRICOR TAB 145 MG PO SCH (08:28)
[2016-11-19] MEDS: PROTONIX TAB 40 MG PO SCH (08:28)
[2016-11-19] MEDS ORDERED: ULTRAM PO PRN (09:00)
[2016-11-19] MEDS ORDERED: EFFEXOR XR 150 MG CAP PO SCH (09:00)
[2016-11-19] MEDS ORDERED: [UNRECOGNIZED DRUG - OTHER] PO SCH (12:00)
[2016-11-19] MEDS ORDERED: NEURONTIN CAP 400 MG PO SCH (12:00)
[2016-11-19 12:29] VITALS: BP 163/75
== END 2016-11-19 14:55 | disposition home or self-care (01) | DRG 439 ==
LOC: ER 10:00 → MED/SURG 13:00
PROVIDERS: ADMIT Internal Medicine; ATTEND Internal Medicine
DX: K85.00 Idiopathic acute pancreatitis without necrosis or infection (principal); E86.0 Dehydration; R10.84 Generalized abdominal pain; R11.2 Nausea with vomiting, unspecified; R19.7 Diarrhea, unspecified; R07.89 Other chest pain; I25.10 Atherosclerotic heart disease of native coronary artery without angina pectoris; E11.65 Type 2 diabetes mellitus with hyperglycemia; I10 Essential (primary) hypertension; E03.8 Other specified hypothyroidism; J44.9 Chronic obstructive pulmonary disease, unspecified; M79.7 Fibromyalgia; K21.9 Gastro-esophageal reflux disease without esophagitis; E78.2 Mixed hyperlipidemia; M13.89 Other specified arthritis, multiple sites; K50.90 Crohn's disease, unspecified, without complications; E21.4 Other specified disorders of parathyroid gland; N18.9 Chronic kidney disease, unspecified; R26.89 Other abnormalities of gait and mobility
CPT/HCPCS: 36415; 74022; 74176; 74181; 80053; 81001; 82009; 82150; 83690; 84132; 84484; 85025; 86316; 93005; 93010; 96365; 96367; 96374; 96375; 97535; 99238; 99284; A4216; A4222; C9113; J1335; J2405; J2550

== ENCOUNTER 2018-04-30 03:40 | Inpatient (IN) ==
[2018-04-30 03:48] VITALS: BMI 29.2
--- NOTE | 2018-04-30 04:27 | RAD ---
Chest, one view Indication: Tachycardia, chest pressure Comparison: 11/15/2016 Findings: The cardiac silhouette is unremarkable. The lungs are essentially clear. No significant ple ural effusion or pneumothorax. Impression: No acute chest process. Reported By:
[2018-04-30 04:28] LABS: BASOPHILS # (AUTO) 0.2 X10^3/uL (0.0-0.1); BASOPHILS % (AUTO) 1.5 % (0.2-1.0); EOSINOPHILS # (AUTO) 0.2 x10^3/uL (0.0-0.2); EOSINOPHILS % (AUTO) 1.4 % (0.9-2.9); HEMATOCRIT 45.5 % (36.0-47.0); HEMOGLOBIN 15.3 g/dL (12.0-16.0); LYMPHOCYTES # (AUTO) 4.1 X10^3/uL (1.3-2.9); MEAN CORPUSCULAR HEMOGLOBIN 29.7 pg (27.0-34.0); MEAN CORPUSCULAR HGB CONC 33.7 g/dL (33.0-35.0); MEAN PLATELET VOLUME 8.2 fL (7.4-11.0); MONOCYTES # (AUTO) 1.1 x10^3/uL (0.3-0.8); MONOCYTES % (AUTO) 7.5 % (0.0-13.0); NEUTROPHILS # (AUTO) 8.6 x10^3/uL (2.2-4.8); NEUTROPHILS % (AUTO) 60.6 % (42.0-75.0); PLATELET COUNT 487 X10^3/uL (150.0-450.0); RED BLOOD COUNT 5.17 X10^6/uL (3.5-5.4); RED CELL DISTRIBUTION WIDTH 13.7 % (11.6-16.5); WHITE BLOOD COUNT 14.2 X10^3/uL (3.6-10.0)
[2018-04-30 04:49] LABS: ALANINE AMINOTRANSFERASE 35 Units/L (12-78); ALBUMIN 3.9 g/dL (3.4-5.0); ALKALINE PHOSPHATASE 152 Units/L (46-116); ASPARTATE AMINO TRANSFERASE 24 Units/L (15-37); BLOOD UREA NITROGEN 25 mg/dL (7-18); CALCIUM 9.1 mg/dL (8.5-10.1); CARBON DIOXIDE 18.3 mmol/L (21-32); CKMB % 2.3 % (<4); CREATINE KINASE 88 Units/L (26-192); CREATININE 1.16 mg/dL (0.55-1.02); TOTAL PROTEIN 8.4 g/dL (6.4-8.2); TROPONIN I < 0.02 ng/mL (0-1.5); eGFR NON BLACK RACES 49 (>60)
[2018-04-30 04:53] LABS: CHLORIDE 102 mmol/L (98-107); COR NA(FOR HYPERGLY) 140 mmol/L (136-145); SODIUM 138 mmol/L (136-145)
[2018-04-30] MEDS ORDERED: CARDIZEM SR 120 MG PO ONE (04:54)
[2018-04-30] MEDS: CARDIZEM CD 240 MG PO SCH ×2 (05:19→09:38)
--- NOTE | 2018-04-30 05:33 | DR.GENAD ---
HPI Time Seen Time Seen by Provider: 04/30/18 04:09 PCP Primary Care Physician: BECKI HPI Comment HPI Comment: STARTED GETTING SICK 4 DAYS AGO. WORSE LAST NIGHT. FEELS WEAK, DIZZY AND HAVING NEAR SYNCOPAL EPISODES. BP NOTED TO BE ELEVATED TONIGHT. NO HISTORY OF PREVIOUS EPISODES. DENIES FEVER OR URI SYMPTOMS. PATIENT HAVE ALSO STARTED HAVING CHEST PAIN ACROSS HER CHEST BUT MAINLY ON THE LEFT SIDE. Complaint/Symptoms Chief Complaint Doctors Comments: RAPID HEART RATE, CHEST PAIN AND ELEVATED BLOO D PRESSURE. Chief Complaint:: ELEVATED BP, HIGH HEART RATE AND PRESSURE IN CHEST AREA. FEELS LIKE SOMETHING IS SITTING ON CHEST LEFT SIDE. Self Treatment fo Chief Complaint: TOOK PRESCRIBED MEDS Nurses notes reviewed Nurses Notes Review: Yes Source History Provided: Patient and Family Member Mode of Arrival Mode of Arrival: Ambulatory Timing Onset of Chief Complaint: 05/04/18 Came on: Suddenly Duration Duration: Constant Duration: Days Severity Severity: Moderate Modifying Factors Worsens:: EXERSION Improves:: NONE. Associated Signs and Symptoms Associated Signs and Symptoms: DIZZINESS, GENERALIZE WEAKNESS PMH PMH Past Medical History: Yes Past Medical History: COPD, Coronary Artery Disease, Diabetes, Hypertension and Hypothyroidism Past Surgical History: Yes Surgical History: Cholecystectomy, Hysterectomy, Mastectomy, Tonsillectomy and Other Past Surgical History Comment: RECONSTRUCTION TO BREAST Family History History of Family Medical Conditions: Yes Family Medical History: Diabetes Mellitus and [place] Social History Does any household member use tobacco: No Alcohol Use: None Do you use any recreational Drugs:: No Lives With: Spouse Lives Where: Home infectious screening In the last 2 months have you had wt loss of >10#?: NO Have you had fever, night sweats or hemotysis?: No Have you traveled outside the country in the last 6 months?: No Isolation: Standard ROS Review of Systems Constitutional: Weakness and Fatigue Eyes: No Symptoms Reported ENTM: No Symptoms Reported Respiratoy: No Symptoms Reported Cardiovascular: No Symptoms Reported Gastrointestinal/Abdominal: No Symptoms Reported Genitourinary: No Symptoms Reported Neurological: No Symptoms Reported and Weakness Musculoskeletal: No Symptoms Reported Integumentary: No Symptoms Reported Hematologic/Lymphatic: No Symptoms Reported Endocrine: No Symptoms Reported Psychiatric: No Symptoms Reported All Other Systems: Reviewed and Negative PE Vital Signs Vitals: Temperature 97.1 F Pulse Rate [Apical] 119 Pulse Rate 109 Respiratory Rate 19 Blood Pressure [Left Calf] 161/71 Blood Pressure [Right Calf] 141/94 Blood Pressure [Left Arm] 155/93 Blood Pressure [Right Arm] 166/72 Blood Pressure 180/93 O2 Sat by Pulse Oximetry 96 General Limitations: No Limitations General Appearance: Alert and In No Apparent Distress Head Head Exam: Normal Inspection and Atraumatic Eyes Eye exam: Normal Appearance, PERRL and EOMI; negative Scleral Icterus and Conjunctival Injection ENT ENT Exam: Normal Exam, Normal Oropharynx, Normal External Ear Exam, Mucous Membranes Moist and TM's Normal Bilaterally External Ear Exam: Normal External Inspection TM/Canal Exam: Bilateral: Normal Nose Exam: Normal Nose Exam Mouth Exam: Normal Inspection Throat Exam: Normal Inspection Neck Neck Exam: Normal Inspection and Trachea Midline; negative Tenderness, Meningismus and Lymphadenopathy Chest Chest Inspection: Normal Inspection and Symmetric Chest Wall Rise Respiratory Respiratory Exam: Normal Lung Sounds Bilat Respiratory Exam: Bilateral: Clear to Auscultation Cardiovascular Cardiovascular Exam: Tachycardia Abdominal Exam Abdominal Exam: Normal Inspection, Normal Bowel Sounds and Soft; negative Tenderness Extremities Extremities Exam: Normal Inspection Back Back Exam: Normal Inspection Neurologic Neurological Exam: Alert, Oriented X3 and CN II-XII Intact; negative Motor Sensory Deficit Psychiatric Psychiatric Exam: Normal Affect and Normal Mood Skin Skin Exam: Dry MDM Additional Information Additional Information Obtained From: Family Differential Diagnosis Differential Diagnosis: CHEST PAIN, A FIB/TACHYCARDIA, HYPERTENSION COURSE Treatment Treatment: SEE ORDERS. Consultation Consultation Comments: DISCUSS PATIENT WITH DR. CARROLL, HE WILL ADMIT PATIENT. Education/Counseling Education/Counseling: Patient and Family Educated On: Diagnosis ROR Labs Reviewed Laboratory Results Reviewed?: Yes Result Diagrams: 04/30/18 04:19 04/30/18 04:19 Laboratory: WBC 14.2 X10^3/uL (3.6-10.0) H 04/30/18 04:19 RBC 5.17 X10^6/uL (3.5-5.4) 04/30/18 04:19 Hgb 15.3 g/dL (12.0-16.0) 04/30/18 04:19 Hct 45.5 % (36.0-47.0) 04/30/18 04:19 MCV 88.0 fL (80.0-100.0) 04/30/18 04:19 MCH 29.7 pg (27.0-34.0) 04/30/18 04:19 MCHC 33.7 g/dL (33.0-35.0) 04/30/18 04:19 RDW 13.7 % (11.6-16.5) 04/30/18 04:19 Plt Count 487 X10^3/uL (150.0-450.0) H 04/30/18 04:19 MPV 8.2 fL (7.4-11.0) 04/30/18 04:19 Neut % (Auto) 60.6 % (42.0-75.0) 04/30/18 04:19 Lymph % (Auto) 29.0 % (21.0-51.0) 04/30/18 04:19 [place] % (Auto) 7.5 % (0.0-13.0) 04/30/18 04:19 Eos % (Auto) 1.4 % (0.9-2.9) 04/30/18 04:19 Baso % (Auto) 1.5 % (0.2-1.0) H 04/30/18 04:19 Neut # (Auto) 8.6 x10^3/uL (2.2-4.8) H 04/30/18 04:19 Lymph # (Auto) 4.1 X10^3/uL (1.3-2.9) H 04/30/18 04:19 [place] # (Auto) 1.1 x10^3/uL (0.3-0.8) H 04/30/18 04:19 Eos # (Auto) 0.2 x10^3/uL (0.0-0.2) 04/30/18 04:19 Baso # (Auto) 0.2 X10^3/uL (0.0-0.1) H 04/30/18 04:19 Absolute Nucleated RBC 0.0 /100WBC 04/30/18 04:19 Sodium 138 mmol/L (136-145) 04/30/18 04:19 Corrected Sodium 140 mmol/L (136-145) 04/30/18 04:19 Potassium 4.1 mmol/L (3.5-5.1) 04/30/18 04:19 Chloride 102 mmol/L (98-107) 04/30/18 04:19 Carbon Dioxide 18.3 mmol/L (21-32) L 04/30/18 04:19 BUN 25 mg/dL (7-18) H 04/30/18 04:19 Creatinine 1.16 mg/dL (0.55-1.02) H 04/30/18 04:19 Est GFR (MDRD) Af Amer 59 (>60) 04/30/18 04:19 Est GFR (MDRD) Non-Af 49 (>60) L 04/30/18 04:19 Glucose 200 mg/dL (65-99) H 04/30/18 04:19 Calcium 9.1 mg/dL (8.5-10.1) 04/30/18 04:19 Corrected Calcium TNP 04/30/18 04:19 Total Bilirubin 0.20 mg/dL (0.2-1.0) 04/30/18 04:19 AST 24 Units/L (15-37) 04/30/18 04:19 ALT 35 Units/L (12-78) 04/30/18 04:19 Alkaline Phosphatase 152 Units/L (46-116) H 04/30/18 04:19 Creatine Kinase 88 Units/L (26-192) 04/30/18 04:19 CK-MB (CK-2) 2.0 ng/mL (0-4.0) 04/30/18 04:19 CK/CKMB % Calc 2.3 % (<4) 04/30/18 04:19 Troponin I < 0.02 ng/mL (0-1.5) 04/30/18 04:19 Total Protein 8.4 g/dL (6.4-8.2) H 04/30/18 04:19 Albumin 3.9 g/dL (3.4-5.0) 04/30/18 04:19 Globulin 4.5 g/dL (2.5-4.5) 04/30/18 04:19 Albumin/Globulin Ratio 0.9 Ratio (1.1-2.1) L 04/30/18 04:19 XRAY XRAY Interpreted by: Radiologist XRAY Findings: REPORT DISCUSS WITH PATIENT. EKG [place]: Normal Rhythm: ST Block: LBBB and RBBB Diagnosis Discharge Problem: Atrial fib/flutter, transient, Tachycardia Chest pain Qualifiers: Chest pain type: intercostal pain Qualified Code(s): R07.82 - Intercostal pain Hypertension Qualifiers: Hypertension type: essential hypertension Qualified Code(s): I10 - Essential (primary) hypertension
[2018-04-30] MEDS ORDERED: CARDIZEM INJ 50 MG VIAL ONE (05:59)
[2018-04-30] MEDS ORDERED: CARDIZEM INJ 50 MG VIAL IVP ONE ×2 (06:04→07:10)
[2018-04-30] MEDS ORDERED: NS 100 ML IV 100 ML IV ONE (07:31)
[2018-04-30] MEDS ORDERED: CARDIZEM INJ 125 MG VIAL ONE (07:32)
[2018-04-30] MEDS ORDERED: NS 1000 ML 1,000 ML ONE (07:43)
[2018-04-30] MEDS: CARDIZEM INJ 125 MG VIAL 125 MG in NS 100 ML IV 100 ML IV PRN ×2 (07:54→19:10)
[2018-04-30] MEDS ORDERED: FLUVIRIN IM ONE (10:45)
[2018-04-30 11:05] LABS: CKMB % 2.7 % (<4); CREATINE KINASE 66 Units/L (26-192); CREATINE KINASE MB 1.8 ng/mL (0-4.0); TROPONIN I < 0.02 ng/mL (0-1.5)
[2018-04-30] MEDS ORDERED: PATIENT'S HOME MEDICATION (Levocetirizine [Levocetirizine] 5 MG) PO SCH (11:21)
[2018-04-30] MEDS ORDERED: VALIUM PO PRN (11:37)
[2018-04-30] MEDS: LOVAZA PO SCH (11:59)
[2018-04-30] MEDS: MYSOLINE PO SCH ×2 (12:00→21:52)
[2018-04-30] MEDS: ULTRAM PO PRN (12:02)
[2018-04-30] MEDS: CYMBALTA PO SCH (12:02)
[2018-04-30] MEDS: MOBIC TAB 15 MG PO SCH (12:02)
[2018-04-30] MEDS: ZETIA TAB 10 MG PO SCH (12:02)
[2018-04-30] MEDS: NORVASC TAB 5 MG PO SCH (12:02)
[2018-04-30] MEDS: ZyrTEC TAB 10 MG PO SCH (12:03)
[2018-04-30] MEDS: PRED FORTE 1 % OP SCH ×4 (12:15→23:20)
[2018-04-30] MEDS ORDERED: ZOFRAN INJ 4 MG VIAL IVP PRN (13:43)
[2018-04-30] MEDS ORDERED: DIAZEPAM 2 MG PO SCH (14:00)
[2018-04-30 15:58] LABS: BILIRUBIN,URINE NEGATIVE (NEGATIVE); BLOOD/HEMOGLOBIN,URINE NEGATIVE (NEGATIVE); GLUCOSE, URINE 4+ (NEGATIVE); KETONES,URINE NEGATIVE (NEGATIVE); LEUKOCYTE ESTERASE ,URINE 1+ (NEGATIVE); NITRITES,URINE NEGATIVE (NEGATIVE); PROTEIN,URINE 2+ (NEGATIVE); UROBILINOGEN,URINE NORMAL (NORMAL)
[2018-04-30 16:00] LABS: APPEARANCE,URINE CLEAR (CLEAR); COLOR,URINE YELLOW (YELLOW)
[2018-04-30 16:04] LABS: BACTERIA,URINE NEGATIVE /HPF (NEGATIVE); MUCUS,URINE FEW /HPF (NEGATIVE); RBC,URINE NONE SEEN /HPF (NONE SEEN); SQUAMOUS EPITHELIAL CELL,UR FEW /HPF (NEGATIVE)
[2018-04-30 17:25] LABS: CKMB % 3.6 % (<4); CREATINE KINASE 56 Units/L (26-192); TROPONIN I < 0.02 ng/mL (0-1.5)
[2018-04-30] MEDS: HumuLIN R SUBCUT PRN ×2 (18:22→22:00)
[2018-04-30] MEDS: SNACK - Diabetic Appropriate PO SCH (20:00)
[2018-04-30] MEDS ORDERED: INSULIN DEGLUDEC 24 UNIT subcut SCH (21:00)
[2018-05-01] MEDS: PRED FORTE 1 % OP SCH ×6 (03:20→23:10)
[2018-05-01] MEDS: CARDIZEM INJ 125 MG VIAL 125 MG in NS 100 ML IV 100 ML IV PRN (04:38)
[2018-05-01 06:26] LABS: BASOPHILS # (AUTO) 0.1 X10^3/uL (0.0-0.1); BASOPHILS % (AUTO) 0.9 % (0.2-1.0); EOSINOPHILS # (AUTO) 0.4 x10^3/uL (0.0-0.2); EOSINOPHILS % (AUTO) 3.2 % (0.9-2.9); HEMATOCRIT 42.1 % (36.0-47.0); HEMOGLOBIN 14.1 g/dL (12.0-16.0); LYMPHOCYTES # (AUTO) 3.2 X10^3/uL (1.3-2.9); LYMPHOCYTES % (AUTO) 27.3 % (21.0-51.0); MEAN CORPUSCULAR HEMOGLOBIN 29.6 pg (27.0-34.0); MEAN CORPUSCULAR HGB CONC 33.4 g/dL (33.0-35.0); MEAN CORPUSCULAR VOLUME 88.7 fL (80.0-100.0); MONOCYTES # (AUTO) 1.1 x10^3/uL (0.3-0.8); MONOCYTES % (AUTO) 9.2 % (0.0-13.0); NEUTROPHILS # (AUTO) 6.9 x10^3/uL (2.2-4.8); NEUTROPHILS % (AUTO) 59.4 % (42.0-75.0); PLATELET COUNT 427 X10^3/uL (150.0-450.0); RED BLOOD COUNT 4.75 X10^6/uL (3.5-5.4); RED CELL DISTRIBUTION WIDTH 14.1 % (11.6-16.5); WHITE BLOOD COUNT 11.7 X10^3/uL (3.6-10.0)
[2018-05-01 06:49] LABS: ALANINE AMINOTRANSFERASE 30 Units/L (12-78); ALBUMIN 3.4 g/dL (3.4-5.0); ALKALINE PHOSPHATASE 130 Units/L (46-116); ASPARTATE AMINO TRANSFERASE 18 Units/L (15-37); BLOOD UREA NITROGEN 22 mg/dL (7-18); CALCIUM 7.9 mg/dL (8.5-10.1); CARBON DIOXIDE 21.7 mmol/L (21-32); CHLORIDE 104 mmol/L (98-107); COR NA(FOR HYPERGLY) 140 mmol/L (136-145); CREATININE 0.95 mg/dL (0.55-1.02); MAGNESIUM 1.1 mg/dL (1.7-2.9); SODIUM 139 mmol/L (136-145); TOTAL PROTEIN 7.4 g/dL (6.4-8.2); eGFR NON BLACK RACES > 60 (>60)
[2018-05-01] MEDS ORDERED: CARDIZEM SR 120 MG PO SCH (09:00)
[2018-05-01] MEDS: MYSOLINE PO SCH ×2 (09:29→21:19)
[2018-05-01] MEDS: NORVASC TAB 5 MG PO SCH (09:29)
[2018-05-01] MEDS: MOBIC TAB 15 MG PO SCH (09:30)
[2018-05-01] MEDS: LOVAZA PO SCH (09:30)
[2018-05-01] MEDS: ZyrTEC TAB 10 MG PO SCH (09:30)
[2018-05-01] MEDS: ZETIA TAB 10 MG PO SCH (09:30)
[2018-05-01] MEDS: CYMBALTA PO SCH (09:30)
[2018-05-01] MEDS ORDERED: LEVOTHYROXINE 125 MCG PO SCH (10:15)
[2018-05-01] MEDS: SYNTHROID 125 mcg TAB PO SCH (11:16)
[2018-05-01] MEDS: HumuLIN R SUBCUT PRN ×3 (12:06→22:15)
--- NOTE | 2018-05-01 14:46 | DR.H&P ---
H&P - History & Physical for Day of: H&P Date: 04/30/18 - Chief Complaint Chief Complaint: WEAKNESS, DIZZINESS, NEAR SYNCOPE, CHEST PAIN, HTN, SOB - History of Present Illness History of Present Illness: IS A 72 YEAR OLD PATIENT OF . SHE PRESENTED TO THE EMERGENCY ROOM WITH REPORTS OF WEAKNESS, DIZZINESS, AND NEAR SYNCOPE. SHE REPORTS THAT SYMPTOMS STARTED APPROXIMATELY FOUR DAYS AGO AND SYMPTOMS HAVE WORSENED. SHE ALSO REPORTS LEFT SIDED CHEST PAIN, SHORNTESS OF BREATH, AND INCREASED BLOOD PRESSURE. ON ARRIVAL, VITALS WERE 97.1-148-20-97%-171/96. LABS WERE OBTAINED. ABNORMAL LAB VALUES INCLUDE THE FOLLOWING: WBC 14.2, PLT COUNT 487, CARBON DIOXIDE 18.3, BUN 25, CREATININE 1.16, GLUCOSE 200, ALK PHOS 152, TOTAL PROTEIN 8.4. CARDIAC ENZYMES WITHIN NORMAL LIMITS. CHEST XRAY REVEALED NO ACUTE CHEST PROCESS. EKG REVEALED: SINUS TACHYCARDIA WITH HR 128. SHE WAS STARTED ON A CARDIZEM DRIP IN THE ER AND ADMITTED TO THE INTENSIVE CARE UNIT ON THE TEST EVALUATOR FOR FURTHER EVALUATION AND TREATMENT OF TACHYCARDIA, HYPERTENSION, AND CHEST PAIN. WE PLAN TO OBTAIN SERIAL CARDIAC ENZYMES AND EKGS AND FOLLOW UP WITH AM LABS. - Past Medical History Past Medical History: Coronary Artery Disease, Hypertension, Diabetes, Hypothyroidism, COPD Additional Medical History: Diabetic Neuropathy, Chronic Back Pain, Fibrocystic Breast Disease, Crohns Disease, Fibromyalgia, Mitral Valve Leak, Valvular Heart Disease, Bronchitits, Uterine Fibroids, Diarrhea, Fibromyalgia, Restless Leg Syndrome, Parathyroid Disease, Previous Blood Transfusion - Past Surgical History Surgical History: Cholecystectomy, Hysterectomy, Mastectomy, Other, Tonsillectomy Additional Surgical History: Bilateral Mastectomy due to stones - Family History Family Medical History: Diabetes Mellitus, Cancer, [place] - Social History Does patient currently use any type of tobacco product: No Have you used tobacco products in the last 12 months: No Type of Tobacco Use: None Does any household member use tobacco: No Alcohol Use: None Drug Use: None - Medications Home Medications: acetaminophen [From Lortab] Allergy (Verified 04/30/18 03:48) aluminum hydroxide [From Ascriptin] Allergy (Verified 04/30/18 03:48) aripiprazole [From Abilify] Allergy (Verified 04/30/18 03:48) aspirin [From Ascriptin] Allergy (Verified 04/30/18 03:48) bee pollen Allergy (Verified 04/30/18 03:48) calcium carbonate [From Ascriptin] Allergy (Verified 04/30/18 03:48) coconut oil Allergy (Verified 04/30/18 03:48) codeine Allergy (Verified 04/30/18 03:48) hydrocodone [From Lortab] Allergy (Verified 04/30/18 03:48) latex Allergy (Verified 04/30/18 03:48) levetiracetam [From Keppra] Allergy (Verified 04/30/18 03:48) magnesium [From Ascriptin] Allergy (Verified 04/30/18 03:48) metformin Allergy (Verified 04/30/18 03:48) niacin Allergy (Verified 04/30/18 03:48) oxycodone [From Percocet] Allergy (Verified 04/30/18 03:48) pregabalin [From Lyrica] Allergy (Verified 04/30/18 03:48) propoxyphene [From Darvon-N] Allergy (Verified 04/30/18 03:48) propranolol [From Inderal [place]] Allergy (Verified 04/30/18 03:48) red dye Allergy (Verified 04/30/18 03:48) rosuvastatin [From Crestor] Allergy (Verified 04/30/18 03:48) CONTINUE taking the following medications amlodipine 5 mg PO DAILY 04/30/18 [History] diazepam 2 mg PO TID 04/30/18 [History] duloxetine 60 mg PO DAILY 04/30/18 [History] ezetimibe 10 mg PO DAILY 04/30/18 [History] insulin aspart U-100 [Novolog PenFill U-100 Insulin] 1 sliding scale dose SUBCUT UD 04/30/18 [History] insulin degludec [Tresiba FlexTouch U-100] 32 units SUBCUT HS 04/30/18 [History] levocetirizine 5 mg PO DAILY 04/30/18 [History] levothyroxine 125 mcg PO QDAY 04/30/18 [History] meloxicam 15 mg PO DAILY 04/30/18 [History] omega-3 acid ethyl esters 1 cap PO DAILY 04/30/18 [History] ondansetron HCl 4 mg PO TID PRN 04/30/18 [History] prednisolone acetate 1 % OPHTHALMIC (EYE) Q4H 04/30/18 [History] primidone 100 mg PO BID 04/30/18 [History] tizanidine 4 mg PO TID PRN 04/30/18 [History] tramadol 50 mg PO Q4H 04/30/18 [History] - Review of Systems Constitutional: See HPI, Weakness, Malaise Eyes: No Symptoms Reported ENT: No Symptoms Reported Respiratory: Shortness of Breath, SOB with Excertion Cardiovascular: Chest Pain, Palpitations, Light Headedness Gastrointestinal: No Symptoms Reported Genitourinary: No Symptoms Reported Musculoskeletal: No Symptoms Reported Skin: No Symptoms Reported Neurological: Weakness - Physical Exam Vital Signs: Temperature 97.8 F Pulse Rate [Apical] 119 Pulse Rate 100 Respiratory Rate 26 Blood Pressure [Left Calf] 161/71 Blood Pressure [Right Calf] 141/94 Blood Pressure [Left Arm] 155/93 Blood Pressure [Right Arm] 166/72 Blood Pressure 149/86 O2 Sat by Pulse Oximetry 99 Oriented: Normal Eyes: Normal Ear: Normal Nose: Normal Throat: Normal Respiratory: Diminished Throughout Cardiovascular: Tachycardia. negative: S3, S4, Murmur, Edema : Normal Auscultation: Bowel Sounds: Normal Palpation: Normal Tenderness: Normal Skin: Normal Musculoskeletal: Normal Psychiatric: Normal Mood Description: Calm Affect: Normal Speech Pattern: Clear - Assessment/Plan (1) Tachycardia Status: Acute Plan: CARDIZEM DRIP, TEST EVALUATOR, CONTINUE TO MONITOR (2) Chest pain Qualifiers: Chest pain type: intercostal pain Qualified Code(s): R07.82 - Intercostal pain Status: Acute Plan: SERIAL CARDIAC ENZYMES AND EKGS, CONTINUE TO MONTIOR (3) Hypertension Qualifiers: Hypertension type: essential hypertension Qualified Code(s): I10 - Essential (primary) hypertension Status: Acute - Allergies Allergies/Adverse Reactions: Allergies Allergy/AdvReac Type Severity Reaction Status Date / Time acetaminophen [From Lortab] Allergy Verified 04/30/18 03:48 aluminum hydroxide Allergy Verified 04/30/18 03:48 [From Ascriptin] aripiprazole [From Abilify] Allergy Verified 04/30/18 03:48 aspirin [From Ascriptin] Allergy Verified 04/30/18 03:48 bee pollen Allergy Verified 04/30/18 03:48 calcium carbonate Allergy Verified 04/30/18 03:48 [From Ascriptin] coconut oil Allergy Verified 04/30/18 03:48 codeine Allergy Verified 04/30/18 03:48 hydrocodone [From Lortab] Allergy Verified 04/30/18 03:48 latex Allergy Verified 04/30/18 03:48 levetiracetam [From Keppra] Allergy Verified 04/30/18 03:48 magnesium [From Ascriptin] Allergy Verified 04/30/18 03:48 metformin Allergy Verified 04/30/18 03:48 niacin Allergy Verified 04/30/18 03:48 oxycodone [From Percocet] Allergy Verified 04/30/18 03:48 pregabalin [From Lyrica] Allergy Verified 04/30/18 03:48 propoxyphene [From Darvon-N] Allergy Verified 04/30/18 03:48 propranolol [From Inderal [place]] Allergy Verified 04/30/18 03:48 red dye Allergy Verified 04/30/18 03:48 rosuvastatin [From Crestor] Allergy Verified 04/30/18 03:48
[2018-05-01 16:31] LABS: STOOL FOR WBC POSITIVE (NEGATIVE)
[2018-05-01 16:48] LABS: CRYPTOSPORIDIUM PARVUM ANTIGEN NEGATIVE (NEGATIVE); GIARDIA LAMBLIA ANTIGEN NEGATIVE (NEGATIVE)
[2018-05-01] MEDS: SNACK - Diabetic Appropriate PO SCH (20:00)
[2018-05-01] MEDS: COZAAR PO SCH (21:19)
[2018-05-01] MEDS: MAGNESIUM SULFATE 1 GRAM/100 mL PREMIX 1 GM/100 ML BAG IV PRN ×2 (21:20→23:10)
[2018-05-01 22:12] LABS: CKMB % 3.8 % (<4); CREATINE KINASE 64 Units/L (26-192); CREATINE KINASE MB 2.4 ng/mL (0-4.0); TROPONIN I < 0.02 ng/mL (0-1.5)
[2018-05-01] MEDS: INSULIN DEGLUDEC 36 UNIT subcut SCH (22:15)
[2018-05-01] MEDS: ULTRAM PO PRN (22:22)
[2018-05-02] MEDS: MAGNESIUM SULFATE 1 GRAM/100 mL PREMIX 1 GM/100 ML BAG IV PRN ×4 (00:10→03:23)
[2018-05-02] MEDS: ZANAFLEX PO PRN ×2 (01:18→14:18)
[2018-05-02] MEDS: PRED FORTE 1 % OP SCH ×6 (03:20→23:48)
[2018-05-02] MEDS: HumuLIN R SUBCUT PRN ×4 (06:05→20:39)
[2018-05-02 06:13] LABS: BASOPHILS # (AUTO) 0.1 X10^3/uL (0.0-0.1); BASOPHILS % (AUTO) 0.9 % (0.2-1.0); EOSINOPHILS # (AUTO) 0.3 x10^3/uL (0.0-0.2); EOSINOPHILS % (AUTO) 2.3 % (0.9-2.9); HEMATOCRIT 39.2 % (36.0-47.0); HEMOGLOBIN 13.1 g/dL (12.0-16.0); LYMPHOCYTES # (AUTO) 2.6 X10^3/uL (1.3-2.9); LYMPHOCYTES % (AUTO) 19.9 % (21.0-51.0); MEAN CORPUSCULAR HEMOGLOBIN 29.5 pg (27.0-34.0); MEAN CORPUSCULAR HGB CONC 33.5 g/dL (33.0-35.0); MEAN CORPUSCULAR VOLUME 88.3 fL (80.0-100.0); MONOCYTES # (AUTO) 1.3 x10^3/uL (0.3-0.8); MONOCYTES % (AUTO) 9.8 % (0.0-13.0); NEUTROPHILS # (AUTO) 8.7 x10^3/uL (2.2-4.8); NEUTROPHILS % (AUTO) 67.1 % (42.0-75.0); PLATELET COUNT 374 X10^3/uL (150.0-450.0); RED BLOOD COUNT 4.44 X10^6/uL (3.5-5.4)
[2018-05-02] MEDS: SYNTHROID 125 mcg TAB PO SCH (06:17)
[2018-05-02] MEDS: ULTRAM PO PRN ×4 (06:18→21:40)
[2018-05-02 06:37] LABS: ALANINE AMINOTRANSFERASE 29 Units/L (12-78); ALBUMIN 3.1 g/dL (3.4-5.0); ALKALINE PHOSPHATASE 128 Units/L (46-116); ASPARTATE AMINO TRANSFERASE 20 Units/L (15-37); BLOOD UREA NITROGEN 19 mg/dL (7-18); CALCIUM 8.2 mg/dL (8.5-10.1); CARBON DIOXIDE 22.9 mmol/L (21-32); CHLORIDE 103 mmol/L (98-107); COR CA(FOR HYPOALB) 8.9 mg/dL (8.5-10.1); COR NA(FOR HYPERGLY) 136 mmol/L (136-145); SODIUM 134 mmol/L (136-145); TOTAL PROTEIN 6.8 g/dL (6.4-8.2); eGFR NON BLACK RACES > 60 (>60)
[2018-05-02] MEDS: LOVAZA PO SCH (08:27)
[2018-05-02] MEDS: MYSOLINE PO SCH ×2 (08:27→20:39)
[2018-05-02] MEDS: ZETIA TAB 10 MG PO SCH (08:27)
[2018-05-02] MEDS: MOBIC TAB 15 MG PO SCH (08:27)
[2018-05-02] MEDS: NORVASC TAB 5 MG PO SCH (08:27)
[2018-05-02] MEDS: ZyrTEC TAB 10 MG PO SCH (08:27)
[2018-05-02] MEDS: CYMBALTA PO SCH (08:28)
--- NOTE | 2018-05-02 14:28 | PCM.PROG ---
Progress Note - Progress Note for Day of Date of Exam: 05/01/18 - Subjective Subjective: WAS ADMITTED FOR TACHYCARDIA, HYPERTENSION, AND CHEST PAIN. TODAY, SHE IS ALERT AND ORIENTED, LYING IN BED ON MORNING ROUNDS. SHE DENIES CHEST PAIN THIS MORNING, BUT REPORTS FATIGUE, WEAKNESS, AND SHORTNESS OF BREATH. SHE ALSO REPORTS DIARRHEA ON EXAMINATION, HEART IS REGULAR IN RATE AND RHYTHM. BILATERAL LUNGS ARE NOTED WITH DIMINISHED LUNG SOUNDS THROUGHOUT. ABDOMEN IS ROUND, SOFT, AND NON-TENDER WITH NORMAL BOWEL SOUNDS NOTED IN ALL QUADRANTS. HER VITALS TODAY ARE 98.1-99-23-96%-178/86. LABS WERE OBTAINED. ABNORMAL LAB VALUES INCLUDE THE FOLLOWING: WBC 11.7, BUN 22, GLUCOSE 131, CALCIUM 7.9, MAGNESIUM 1.1, ALK PHOS 130. CARDIAC ENZYMES AND EKGS HAVE BEEN WITHIN NORMAL LIMITS. SHE REMAINS ON A CARDIZEM DRIP. TODAY, WE WILL DISCONTINUE THE CARDIZEM DRIP, AND START LOSARTAN 50MG AT BEDTIME AND OBTAIN STOOL STUDIES. OTHERWISE, WE WILL FOLLOW UP WITH AM LABS AND CONTINUE TO MONITOR PATIENT. - Past Medical Family Social History Past Med/Fam/Surg Hx: No changes since H&P Allergies: Allergies acetaminophen [From Lortab] Allergy (Verified 04/30/18 03:48) aluminum hydroxide [From Ascriptin] Allergy (Verified 04/30/18 03:48) aripiprazole [From Abilify] Allergy (Verified 04/30/18 03:48) aspirin [From Ascriptin] Allergy (Verified 04/30/18 03:48) bee pollen Allergy (Verified 04/30/18 03:48) calcium carbonate [From Ascriptin] Allergy (Verified 04/30/18 03:48) coconut oil Allergy (Verified 04/30/18 03:48) codeine Allergy (Verified 04/30/18 03:48) hydrocodone [From Lortab] Allergy (Verified 04/30/18 03:48) latex Allergy (Verified 04/30/18 03:48) levetiracetam [From Keppra] Allergy (Verified 04/30/18 03:48) metformin Allergy (Verified 04/30/18 03:48) niacin Allergy (Verified 04/30/18 03:48) oxycodone [From Percocet] Allergy (Verified 04/30/18 03:48) pregabalin [From Lyrica] Allergy (Verified 04/30/18 03:48) propoxyphene [From Darvon-N] Allergy (Verified 04/30/18 03:48) propranolol [From Inderal [place]] Allergy (Verified 04/30/18 03:48) red dye Allergy (Verified 04/30/18 03:48) rosuvastatin [From Crestor] Allergy (Verified 04/30/18 03:48) - Review of Systems ROS: No change since H&P - Vital Signs and I&O's Vital Signs: Temperature 98.7 F Pulse Rate [Apical] 119 Pulse Rate 95 Respiratory Rate 15 Blood Pressure [Left Calf] 161/71 Blood Pressure [Right Calf] 141/94 Blood Pressure [Left Arm] 155/93 Blood Pressure [Right Arm] 166/72 Blood Pressure 174/77 O2 Sat by Pulse Oximetry 99 Intake and Output: Intake & Output 04/30/18 05/01/18 05/02/18 05/03/18 11:59 11:59 11:59 11:59 Intake Total 2640 / 2640 2643 / 2643 Output Total 300 / 300 Balance 2340 / 2340 2643 / 2643 - Physical Exam Oriented: Normal Eyes: Normal Ear: Normal Nose: Normal Throat: Normal Respiratory: Generalized, Diminished Cardiovascular: Normal. negative: S3, S4, Murmur, Edema : Normal Auscultation: Bowel Sounds: Normal Palpation: Normal Tenderness: Normal Skin: Normal Musculoskeletal: Normal Psychiatric: Normal Mood Description: Calm Affect: Normal Speech Pattern: Clear, Appropriate - Laboratory and Diagnostics Result Diagrams: 05/02/18 05:52 05/02/18 05:52 Labs: 05/01/18 16:00 Stool Stool Culture - Preliminary 05/01/18 16:00 Stool - Final Laboratory WBC 13.0 X10^3/uL (3.6-10.0) H 05/02/18 05:52 RBC 4.44 X10^6/uL (3.5-5.4) 05/02/18 05:52 Hgb 13.1 g/dL (12.0-16.0) 05/02/18 05:52 Hct 39.2 % (36.0-47.0) 05/02/18 05:52 MCV 88.3 fL (80.0-100.0) 05/02/18 05:52 MCH 29.5 pg (27.0-34.0) 05/02/18 05:52 MCHC 33.5 g/dL (33.0-35.0) 05/02/18 05:52 RDW 14.0 % (11.6-16.5) 05/02/18 05:52 Plt Count 374 X10^3/uL (150.0-450.0) 05/02/18 05:52 MPV 8.0 fL (7.4-11.0) 05/02/18 05:52 Neut % (Auto) 67.1 % (42.0-75.0) 05/02/18 05:52 Lymph % (Auto) 19.9 % (21.0-51.0) L 05/02/18 05:52 [place] % (Auto) 9.8 % (0.0-13.0) 05/02/18 05:52 Eos % (Auto) 2.3 % (0.9-2.9) 05/02/18 05:52 Baso % (Auto) 0.9 % (0.2-1.0) 05/02/18 05:52 Neut # (Auto) 8.7 x10^3/uL (2.2-4.8) H 05/02/18 05:52 Lymph # (Auto) 2.6 X10^3/uL (1.3-2.9) 05/02/18 05:52 [place] # (Auto) 1.3 x10^3/uL (0.3-0.8) H 05/02/18 05:52 Eos # (Auto) 0.3 x10^3/uL (0.0-0.2) H 05/02/18 05:52 Baso # (Auto) 0.1 X10^3/uL (0.0-0.1) 05/02/18 05:52 Absolute Nucleated RBC 0.0 /100WBC 05/02/18 05:52 Sodium 134 mmol/L (136-145) L 05/02/18 05:52 Corrected Sodium 136 mmol/L (136-145) 05/02/18 05:52 Potassium 4.5 mmol/L (3.5-5.1) 05/02/18 05:52 Chloride 103 mmol/L (98-107) 05/02/18 05:52 Carbon Dioxide 22.9 mmol/L (21-32) 05/02/18 05:52 BUN 19 mg/dL (7-18) H 05/02/18 05:52 Creatinine 0.90 mg/dL (0.55-1.02) 05/02/18 05:52 Est GFR (MDRD) Af Amer > 60 (>60) 05/02/18 05:52 Est GFR (MDRD) Non-Af > 60 (>60) 05/02/18 05:52 Glucose 178 mg/dL (65-99) H 05/02/18 05:52 POC Glucose (mg/dL) 244 mg/dL (65-99) H 05/02/18 12:22 Calcium 8.2 mg/dL (8.5-10.1) L 05/02/18 05:52 Corrected Calcium 8.9 mg/dL (8.5-10.1) 05/02/18 05:52 Magnesium 3.4 mg/dL (1.7-2.9) H 05/02/18 05:52 Total Bilirubin 0.20 mg/dL (0.2-1.0) 05/02/18 05:52 AST 20 Units/L (15-37) 05/02/18 05:52 ALT 29 Units/L (12-78) 05/02/18 05:52 Alkaline Phosphatase 128 Units/L (46-116) H 05/02/18 05:52 Creatine Kinase 64 Units/L (26-192) 05/01/18 21:40 CK-MB (CK-2) 2.4 ng/mL (0-4.0) 05/01/18 21:40 CK/CKMB % Calc 3.8 % (<4) 05/01/18 21:40 Troponin I < 0.02 ng/mL (0-1.5) 05/01/18 21:40 Total Protein 6.8 g/dL (6.4-8.2) 05/02/18 05:52 Albumin 3.1 g/dL (3.4-5.0) L 05/02/18 05:52 Globulin 3.7 g/dL (2.5-4.5) 05/02/18 05:52 Albumin/Globulin Ratio 0.8 Ratio (1.1-2.1) L 05/02/18 05:52 Specimen Type Clean catch urine 04/30/18 15:42 Urine Color Yellow (YELLOW) 04/30/18 15:42 Urine Appearance Clear (CLEAR) 04/30/18 15:42 Urine pH 5.0 (5.0 - 8.0) 04/30/18 15:42 Ur Specific [place] 1.010 (1.000-1.030) 04/30/18 15:42 Urine Protein 2+ (NEGATIVE) 04/30/18 15:42 Urine Glucose (UA) 4+ (NEGATIVE) 04/30/18 15:42 Urine Ketones Negative (NEGATIVE) 04/30/18 15:42 Urine Occult Blood Negative (NEGATIVE) 04/30/18 15:42 Urine Nitrite Negative (NEGATIVE) 04/30/18 15:42 Urine Bilirubin Negative (NEGATIVE) 04/30/18 15:42 Urine Urobilinogen Normal (NORMAL) 04/30/18 15:42 Ur Leukocyte Esterase 1+ (NEGATIVE) 04/30/18 15:42 Urine RBC None seen /HPF (NONE SEEN) 04/30/18 15:42 Urine WBC 0-2 /HPF (NONE SEEN) 04/30/18 15:42 Ur Squamous Epith Cells Few /HPF (NEGATIVE) 04/30/18 15:42 Urine Bacteria Negative /HPF (NEGATIVE) 04/30/18 15:42 Urine Mucus Few /HPF (NEGATIVE) 04/30/18 15:42 Ur Culture Indicated? No/not indicated 04/30/18 15:42 Stool Description 30g,brown,liquid 05/01/18 16:00 Stl Occult Blood (IFOB) Negative (NEGATIVE) 05/01/18 16:00 Stool for White Cells Positive (NEGATIVE) A 05/01/18 16:00 Stl C. diff Tox B Gene Negative (NEGATIVE) 05/01/18 16:00 Stl C. diff [id number] Negative (NEGATIVE) 05/01/18 16:00 Cryptosporid parvum Ag Negative (NEGATIVE) 05/01/18 16:00 Giardia lamblia Ag Negative (NEGATIVE) 05/01/18 16:00 - Plan (1) Tachycardia Status: Acute Plan: SHEETROCK APPLICATOR, CONTINUE TO MONITOR (2) Chest pain Status: Acute Qualifiers: Chest pain type: intercostal pain Qualified Code(s): R07.82 - Intercostal pain Plan: CONTINUE TO MONTIOR (3) Hypertension Status: Acute Qualifiers: Hypertension type: essential hypertension Qualified Code(s): I10 - Essen tial (primary) hypertension Plan: LOSARTAN 50MG PO HS, NORVASC, CONTINUE TO MONITOR (4) Diabetes Status: Acute Qualifiers: Diabetes mellitus type: type 2 Diabetes mellitus 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
[2018-05-02] MEDS: SNACK - Diabetic Appropriate PO SCH (20:00)
[2018-05-02] MEDS: COZAAR PO SCH (20:38)
[2018-05-02] MEDS: INSULIN DEGLUDEC 36 UNIT subcut SCH (20:42)
[2018-05-03] MEDS: PRED FORTE 1 % OP SCH ×2 (03:20→07:59)
[2018-05-03] MEDS: SYNTHROID 125 mcg TAB PO SCH (06:11)
[2018-05-03 06:37] LABS: BASOPHILS # (AUTO) 0.1 X10^3/uL (0.0-0.1); BASOPHILS % (AUTO) 0.9 % (0.2-1.0); EOSINOPHILS # (AUTO) 0.3 x10^3/uL (0.0-0.2); EOSINOPHILS % (AUTO) 4.1 % (0.9-2.9); HEMOGLOBIN 13.5 g/dL (12.0-16.0); LYMPHOCYTES # (AUTO) 2.3 X10^3/uL (1.3-2.9); LYMPHOCYTES % (AUTO) 28.3 % (21.0-51.0); MEAN CORPUSCULAR HEMOGLOBIN 29.9 pg (27.0-34.0); MEAN CORPUSCULAR HGB CONC 33.9 g/dL (33.0-35.0); MEAN CORPUSCULAR VOLUME 88.4 fL (80.0-100.0); MEAN PLATELET VOLUME 8.3 fL (7.4-11.0); MONOCYTES # (AUTO) 0.6 x10^3/uL (0.3-0.8); MONOCYTES % (AUTO) 7.6 % (0.0-13.0); NEUTROPHILS # (AUTO) 4.9 x10^3/uL (2.2-4.8); NEUTROPHILS % (AUTO) 59.1 % (42.0-75.0); PLATELET COUNT 371 X10^3/uL (150.0-450.0); RED BLOOD COUNT 4.52 X10^6/uL (3.5-5.4); RED CELL DISTRIBUTION WIDTH 14.4 % (11.6-16.5); WHITE BLOOD COUNT 8.2 X10^3/uL (3.6-10.0)
[2018-05-03 07:09] LABS: ALANINE AMINOTRANSFERASE 29 Units/L (12-78); ALBUMIN 3.1 g/dL (3.4-5.0); ALKALINE PHOSPHATASE 131 Units/L (46-116); ASPARTATE AMINO TRANSFERASE 19 Units/L (15-37); BLOOD UREA NITROGEN 19 mg/dL (7-18); CALCIUM 8.5 mg/dL (8.5-10.1); CARBON DIOXIDE 25.9 mmol/L (21-32); CHLORIDE 104 mmol/L (98-107); COR CA(FOR HYPOALB) 9.2 mg/dL (8.5-10.1); CREATININE 0.83 mg/dL (0.55-1.02); SODIUM 138 mmol/L (136-145); TOTAL PROTEIN 6.8 g/dL (6.4-8.2); eGFR NON BLACK RACES > 60 (>60)
[2018-05-03] MEDS: LOVAZA PO SCH (09:04)
[2018-05-03] MEDS: MYSOLINE PO SCH (09:04)
[2018-05-03] MEDS: MOBIC TAB 15 MG PO SCH (09:04)
[2018-05-03] MEDS: NORVASC TAB 5 MG PO SCH (09:05)
[2018-05-03] MEDS: ZETIA TAB 10 MG PO SCH (09:05)
[2018-05-03] MEDS: ZyrTEC TAB 10 MG PO SCH (09:05)
[2018-05-03] MEDS: CYMBALTA PO SCH (09:07)
[2018-05-03 11:18] VITALS: BP 137/61
[2018-05-06 00:04] LABS: CHLORIDE STOOL 42; POTASSIUM STOOL 70; SODIUM STOOL 79
--- NOTE | 2018-06-10 22:35 | PCM.PROG ---
Progress Note - Progress Note for Day of Date of Exam: 05/02/18 - Subjective Subjective: WAS ADMITTED FOR TACHYCARDIA, HYPERTENSION, AND CHEST PAIN. TODAY, SHE IS ALERT AND ORIENTED, LYING IN BED ON MORNING ROUNDS. SHE DENIES CHEST PAIN THIS MORNING, BUT REPORTS FATIGUE, WEAKNESS, AND SHORTNESS OF BREATH. SHE ALSO REPORTS DIARRHEA. ON EXAMINATION, HEART IS REGULAR IN RATE AND RHYTHM. BILATERAL LUNGS ARE NOTED WITH DIMINISHED LUNG SOUNDS THROUGHOUT. ABDOMEN IS ROUND, SOFT, AND NON-TENDER WITH NORMAL BOWEL SOUNDS NOTED IN ALL QUADRANTS. HER VITALS TODAY ARE 98.7-87-25-99%-182/81. LABS WERE OBTAINED. ABNORMAL LAB VALUES INCLUDE THE FOLLOWING: WBC 13.0, SODIUM 134, BUN 19, GLUCOSE 178, CALCIUM 8.2, MAGNESIUM 3.4, ALK PHOS 128, ALBUMIN 3.1. TODAY, WE WILL CONTINUE WITH CURRENT PLAN OF CARE. OTHERWISE, WE WILL FOLLOW UP WITH AM LABS AND CONTINUE TO MONITOR PATIENT. - Past Medical Family Social History Past Med/Fam/Surg Hx: No changes since H&P Allergies: Allergies acetaminophen [From Lortab] Allergy (Verified 04/30/18 03:48) aluminum hydroxide [From Ascriptin] Allergy (Verified 04/30/18 03:48) aripiprazole [From Abilify] Allergy (Verified 04/30/18 03:48) aspirin [From Ascriptin] Allergy (Verified 04/30/18 03:48) bee pollen Allergy (Verified 04/30/18 03:48) calcium carbonate [From Ascriptin] Allergy (Verified 04/30/18 03:48) coconut oil Allergy (Verified 04/30/18 03:48) codeine Allergy (Verified 04/30/18 03:48) hydrocodone [From Lortab] Allergy (Verified 04/30/18 03:48) latex Allergy (Verified 04/30/18 03:48) levetiracetam [From Keppra] Allergy (Verified 04/30/18 03:48) metformin Allergy (Verified 04/30/18 03:48) niacin Allergy (Verified 04/30/18 03:48) oxycodone [From Percocet] Allergy (Verified 04/30/18 03:48) pregabalin [From Lyrica] Allergy (Verified 04/30/18 03:48) propoxyphene [From Darvon-N] Allergy (Verified 04/30/18 03:48) propranolol [From Inderal LA] Allergy (Verified 04/30/18 03:48) red dye Allergy (Verified 04/30/18 03:48) rosuvastatin [From Crestor] Allergy (Verified 04/30/18 03:48) - Review of Systems ROS: No change since H&P - Vital Signs and I&O's Vital Signs: Temperature 99.1 F Pulse Rate [Apical] 119 Pulse Rate 76 Respiratory Rate 16 Blood Pressure [Left Calf] 161/71 Blood Pressure [Right Calf] 141/94 Blood Pressure [Left Arm] 155/93 Blood Pressure [Right Arm] 166/72 Blood Pressure 137/61 O2 Sat by Pulse Oximetry 91 - Physical Exam Oriented: Normal Eyes: Normal Ear: Normal Nose: Normal Throat: Normal Respiratory: Generalized, Diminished Cardiovascular: Normal. negative: S3, S4, Murmur, Edema : Normal Auscultation: Bowel Sounds: Normal Tenderness: Normal Skin: Normal Musculoskeletal: Normal Psychiatric: Normal Mood Description: Calm Affect: Normal Speech Pattern: Clear, Appropriate - Laboratory and Diagnostics Result Diagrams: 05/03/18 06:00 05/03/18 06:00 Labs: 05/01/18 16:00 Stool Stool Culture - Final 05/01/18 16:00 Stool - Final Laboratory WBC 8.2 X10^3/uL (3.6-10.0) 05/03/18 06:00 RBC 4.52 X10^6/uL (3.5-5.4) 05/03/18 06:00 Hgb 13.5 g/dL (12.0-16.0) 05/03/18 06:00 Hct 40.0 % (36.0-47.0) 05/03/18 06:00 MCV 88.4 fL (80.0-100.0) 05/03/18 06:00 MCH 29.9 pg (27.0-34.0) 05/03/18 06:00 MCHC 33.9 g/dL (33.0-35.0) 05/03/18 06:00 RDW 14.4 % (11.6-16.5) 05/03/18 06:00 Plt Count 371 X10^3/uL (150.0-450.0) 05/03/18 06:00 MPV 8.3 fL (7.4-11.0) 05/03/18 06:00 Neut % (Auto) 59.1 % (42.0-75.0) 05/03/18 06:00 Lymph % (Auto) 28.3 % (21.0-51.0) 05/03/18 06:00 [place] % (Auto) 7.6 % (0.0-13.0) 05/03/18 06:00 Eos % (Auto) 4.1 % (0.9-2.9) H 05/03/18 06:00 Baso % (Auto) 0.9 % (0.2-1.0) 05/03/18 06:00 Neut # (Auto) 4.9 x10^3/uL (2.2-4.8) H 05/03/18 06:00 Lymph # (Auto) 2.3 X10^3/uL (1.3-2.9) 05/03/18 06:00 [place] # (Auto) 0.6 x10^3/uL (0.3-0.8) 05/03/18 06:00 Eos # (Auto) 0.3 x10^3/uL (0.0-0.2) H 05/03/18 06:00 Baso # (Auto) 0.1 X10^3/uL (0.0-0.1) 05/03/18 06:00 Absolute Nucleated RBC 0.0 /100WBC 05/03/18 06:00 Sodium 138 mmol/L (136-145) 05/03/18 06:00 Corrected Sodium TNP 05/03/18 06:00 Potassium 4.5 mmol/L (3.5-5.1) 05/03/18 06:00 Chloride 104 mmol/L (98-107) 05/03/18 06:00 Carbon Dioxide 25.9 mmol/L (21-32) 05/03/18 06:00 BUN 19 mg/dL (7-18) H 05/03/18 06:00 Creatinine 0.83 mg/dL (0.55-1.02) 05/03/18 06:00 Est GFR (MDRD) Af Amer > 60 (>60) 05/03/18 06:00 Est GFR (MDRD) Non-Af > 60 (>60) 05/03/18 06:00 Glucose 93 mg/dL (65-99) 05/03/18 06:00 POC Glucose (mg/dL) 94 mg/dL (65-99) 05/03/18 06:14 Calcium 8.5 mg/dL (8.5-10.1) 05/03/18 06:00 Corrected Calcium 9.2 mg/dL (8.5-10.1) 05/03/18 06:00 Magnesium 3.4 mg/dL (1.7-2.9) H 05/02/18 05:52 Total Bilirubin 0.30 mg/dL (0.2-1.0) 05/03/18 06:00 AST 19 Units/L (15-37) 05/03/18 06:00 ALT 29 Units/L (12-78) 05/03/18 06:00 Alkaline Phosphatase 131 Units/L (46-116) H 05/03/18 06:00 Creatine Kinase 64 Units/L (26-192) 05/01/18 21:40 CK-MB (CK-2) 2.4 ng/mL (0-4.0) 05/01/18 21:40 CK/CKMB % Calc 3.8 % (<4) 05/01/18 21:40 Troponin I < 0.02 ng/mL (0-1.5) 05/01/18 21:40 Total Protein 6.8 g/dL (6.4-8.2) 05/03/18 06:00 Albumin 3.1 g/dL (3.4-5.0) L 05/03/18 06:00 Globulin 3.7 g/dL (2.5-4.5) 05/03/18 06:00 Albumin/Globulin Ratio 0.8 Ratio (1.1-2.1) L 05/03/18 06:00 Specimen Type Clean catch urine 04/30/18 15:42 Urine Color Yellow (YELLOW) 04/30/18 15:42 Urine Appearance Clear (CLEAR) 04/30/18 15:42 Urine pH 5.0 (5.0 - 8.0) 04/30/18 15:42 Ur Specific [place] 1.010 (1.000-1.030) 04/30/18 15:42 Urine Protein 2+ (NEGATIVE) 04/30/18 15:42 Urine Glucose (UA) 4+ (NEGATIVE) 04/30/18 15:42 Urine Ketones Negative (NEGATIVE) 04/30/18 15:42 Urine Occult Blood Negative (NEGATIVE) 04/30/18 15:42 Urine Nitrite Negative (NEGATIVE) 04/30/18 15:42 Urine Bilirubin Negative (NEGATIVE) 04/30/18 15:42 Urine Urobilinogen Normal (NORMAL) 04/30/18 15:42 Ur Leukocyte Esterase 1+ (NEGATIVE) 04/30/18 15:42 Urine RBC None seen /HPF (NONE SEEN) 04/30/18 15:42 Urine WBC 0-2 /HPF (NONE SEEN) 04/30/18 15:42 Ur Squamous Epith Cells Few /HPF (NEGATIVE) 04/30/18 15:42 Urine Bacteria Negative /HPF (NEGATIVE) 04/30/18 15:42 Urine Mucus Few /HPF (NEGATIVE) 04/30/18 15:42 Ur Culture Indicated? No/not indicated 04/30/18 15:42 Stool Description 30g,brown,liquid 05/01/18 16:00 Stool Neutral Fats Normal (Normal) 05/01/18 16:00 Stool Split Fat Normal (Normal) 05/01/18 16:00 Stool Sodium 79 05/01/18 16:00 Stool Potassium 70 05/01/18 16:00 Stool Chloride 42 05/01/18 16:00 Stl Occult Blood (IFOB) Negative (NEGATIVE) 05/01/18 16:00 Stool for White Cells Positive (NEGATIVE) A 05/01/18 16:00 Stl C. diff Tox B Gene Negative (NEGATIVE) 05/01/18 16:00 Stl C. 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 (2) Chest pain Status: Acute Qualifiers: Chest pain type: intercostal pain Qualified Code(s): R07.82 - Intercostal pain Plan: CONTINUE TO MONTIOR (3) Hypertension Status: Acute Qualifiers: Hypertension type: essential hypertension Qualified Code(s): I10 - Essential (primary) hypertension Plan: LOSARTAN 50MG PO HS, NORVASC, CONTINUE TO MONITOR (4) Diabetes Status: Acute Qualifiers: Diabetes mellitus type: type 2 Diabetes mellitus 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
--- NOTE | 2018-06-14 01:35 | DR.CARTERD ---
- Discharge Summary for: Discharge Summary for Date of:: 05/03/18 - Admission Date Date of Admission: 04/30/18 - Admission Diagnoses Admission Diagnosis: (1) Tachycardia (2) Chest pain (3) Hypertension - Discharge Date Discharge Date: 05/03/18 - Discharge Diagnoses Discharge Diagnosis: (1) Tachycardia (2) Chest pain (3) Hypertension (4) Diabetes - Hospital Course Hospital Course: DAY ONE, IS A 72 YEAR OLD PATIENT OF . SHE PRESENTED TO THE EMERGENCY ROOM WITH REPORTS OF WEAKNESS, DIZZINESS, AND NEAR SYNCOPE. SHE REPORTED THAT SYMPTOMS STARTED APPROXIMATELY FOUR DAYS AGO AND SYMPTOMS HAVE WORSENED. SHE ALSO REPORTED LEFT SIDED CHEST PAIN, SHORNTESS OF BREATH, AND INCREASED BLOOD PRESSURE. ON ARRIVAL, VITALS WERE 97.1-148-20-97%-171/96. LABS WERE OBTAINED. ABNORMAL LAB VALUES INCLUDED THE FOLLOWING: WBC 14.2, PLT COUNT 487, CARBON DIOXIDE 18.3, BUN 25, CREATININE 1.16, GLUCOSE 200, ALK PHOS 152, TOTAL PROTEIN 8.4. CARDIAC ENZYMES WITHIN NORMAL LIMITS. CHEST XRAY REVEALED NO ACUTE CHEST PROCESS. EKG REVEALED: SINUS TACHYCARDIA WITH HR 128. SHE WAS STARTED ON A CARDIZEM DRIP IN THE ER AND ADMITTED TO THE INTENSIVE CARE UNIT ON THE HUMAN DEVELOPMENT PROFESSOR FOR FURTHER EVALUATION AND TREATMENT OF TACHYCARDIA, HYPERTENSION, AND CHEST PAIN. WE OBTAINED SERIAL CARDIAC ENZYMES AND EKGS AND FOLLOWED UP WITH AM LABS. DAY TWO, SHE WAS ALERT AND ORIENTED, LYING IN BED ON MORNING ROUNDS. SHE DENIED CHEST PAIN THIS MORNING, BUT REPORTED FATIGUE, WEAKNESS, AND SHORTNESS OF BREATH. SHE ALSO REPORTED DIARRHEA ON EXAMINATION, HEART WAS REGULAR IN RATE AND RHYTHM. BILATERAL LUNGS ARE NOTED WITH DIMINISHED LUNG SOUNDS THROUGHOUT. ABDOMEN WAS ROUND, SOFT, AND NON-TENDER WITH NORMAL BOWEL SOUNDS NOTED IN ALL QUADRANTS. HER VITALS TODAY WERE 98.1-99-23-96%-178/86. LABS WERE OBTAINED. ABNORMAL LAB VALUES INCLUDED THE FOLLOWING: WBC 11.7, BUN 22, GLUCOSE 131, CALCIUM 7.9, MAGNESIUM 1.1, ALK PHOS 130. CARDIAC ENZYMES AND EKGS HAVE BEEN WITHIN NORMAL LIMITS. SHE REMAINS ON A CARDIZEM DRIP. TODAY, WE DISCONTINUED THE CARDIZEM DRIP, AND STARTED LOSARTAN 50MG AT BEDTIME AND OBTAIN STOOL STUDIES. WE FOLLOWED UP WITH AM LABS AND CONTINUED TO MONITOR PATIENT. DAY THREE, SHE WAS ALERT AND ORIENTED, LYING IN BED ON MORNING ROUNDS. SHE DENIED CHEST PAIN THIS MORNING, BUT REPORTED FATIGUE, WEAKNESS, AND SHORTNESS OF BREATH. SHE ALSO REPORTED DIARRHEA. ON EXAMINATION, HEART IS REGULAR IN RATE AND RHYTHM. BILATERAL LUNGS ARE NOTED WITH DIMINISHED LUNG SOUNDS THROUGHOUT. ABDOMEN IS ROUND, SOFT, AND NON-TENDER WITH NORMAL BOWEL SOUNDS NOTED IN ALL QUADRANTS. HER VITALS TODAY ARE 98.7-87-25-99%-182/81. LABS WERE OBTAINED. ABNORMAL LAB VALUES INCLUDE THE FOLLOWING: WBC 13.0, SODIUM 134, BUN 19, GLUCOSE 178, CALCIUM 8.2, MAGNESIUM 3.4, ALK PHOS 128, ALBUMIN 3.1. TODAY, WE CONTINUED WITH CURRENT PLAN OF CARE. WE FOLLOWED UP WITH AM LABS AND CONTINUED TO MONITOR PATIENT. DAY FOUR, PATIENT SYMPTOMS ARE MUCH BETTER. VITALS ARE STABLE WITH A HEART RATE OF 76 NOTED. PATIENT VOICES ZERO COMPLAINTS THIS MORNING DURING ROUNDS. LABS ARE WITHIN NORMAL LIMITS. WE PLANNED FOR DISCHARGE. INSTRUCTIONS FOR MEDICATIONS AND FOLLOW UP WERE DISCUSSED WITH PATIENT AND FAMILY, BOTH VOICED UNDERSTANDING. PATIENT DISCHARGED HOME IN STABLE CONDITION WITH FAMILY. - Discharge Medications Discharge Medications: Home Medication List Novolog PenFill U-100 Insulin 1 sliding scale dose SUBCUT UD 04/30/18 [History] diazepam 2 mg PO TID 04/30/18 [History] duloxetine 60 mg PO DAILY 04/30/18 [History] ezetimibe 10 mg PO DAILY 04/30/18 [History] insulin degludec 32 units SUBCUT HS 04/30/18 [History] levocetirizine 5 mg PO DAILY 04/30/18 [History] levothyroxine 125 mcg PO QDAY 04/30/18 [History] meloxicam 15 mg PO DAILY 04/30/18 [History] omega-3 acid ethyl esters 1 cap PO DAILY 04/30/18 [History] ondansetron HCl 4 mg PO TID PRN 04/30/18 [History] prednisolone acetate 1 % OPHTHALMIC (EYE) Q4H 04/30/18 [History] primidone 100 mg PO BID 04/30/18 [History] tizanidine 4 mg PO TID PRN 04/30/18 [History] tramadol 50 mg PO Q4H 04/30/18 [History] diltiazem HCl [Cardizem CD] 180 mg PO QDAY #30 cap 05/03/18 [Rx] Prescriptions: diltiazem HCl [Cardizem CD] Woodrow Zhang Chandu - Discharge Disposition Discharge Disposition: PATIENT TO FOLLOW UP IN OUR OFFICE IN ONE WEEK.
== END 2018-05-03 11:35 | disposition home or self-care (01) | DRG 310 ==
LOC: ER 03:41 → ICU 08:28
PROVIDERS: ADMIT Internal Medicine; ATTEND Internal Medicine
DX: Z79.4 Long term (current) use of insulin; R06.02 Shortness of breath; E03.8 Other specified hypothyroidism; R55 Syncope and collapse; R07.82 Intercostal pain; E11.65 Type 2 diabetes mellitus with hyperglycemia; R94.31 Abnormal electrocardiogram [ECG] [EKG]; I48.91 Unspecified atrial fibrillation; Z23 Encounter for immunization; R19.7 Diarrhea, unspecified; R00.0 Tachycardia, unspecified; R53.83 Other fatigue; R42 Dizziness and giddiness; I25.10 Atherosclerotic heart disease of native coronary artery without angina pectoris; I10 Essential (primary) hypertension; J44.9 Chronic obstructive pulmonary disease, unspecified
CPT/HCPCS: 36415; 71010; 71045; 80053; 81001; 82270; 82438; 82550; 82553; 82705; 82947; 83630; 83735; 84302; 84484; 84999; 85025; 87045; 87328; 87329; 87427; 87449; 87493; 87899; 90686; 93005; 93010; 93041; 96365; 96374; 96375; 99284; 99285; A4222; J1815; J2405; J3475; J3490; J7030; J7050

== ENCOUNTER 2020-01-05 05:04 | Inpatient (IN) ==
[2020-01-05] MEDS ORDERED: ZOFRAN INJ 4 MG VIAL IVP ONE ×2 (05:17→08:19)
[2020-01-05 05:25] VITALS: BMI 29.5
[2020-01-05] MEDS ORDERED: ZOFRAN INJ 4 MG VIAL ONE ×2 (05:29→08:22)
[2020-01-05 05:48] LABS: BASOPHILS # (AUTO) 0.1 X10^3/uL (0.0-0.1); BASOPHILS % (AUTO) 0.8 % (0.2-1.0); EOSINOPHILS % (AUTO) 0.3 % (0.9-2.9); HEMATOCRIT 46.2 % (36.0-47.0); HEMOGLOBIN 14.9 g/dL (12.0-16.0); LYMPHOCYTES # (AUTO) 2.1 X10^3/uL (1.3-2.9); MEAN CORPUSCULAR HEMOGLOBIN 28.6 pg (27.0-34.0); MEAN CORPUSCULAR HGB CONC 32.2 g/dL (33.0-35.0); MEAN CORPUSCULAR VOLUME 88.9 fL (80.0-100.0); MEAN PLATELET VOLUME 8.7 fL (7.4-11.0); MONOCYTES # (AUTO) 0.4 x10^3/uL (0.3-0.8); MONOCYTES % (AUTO) 3.5 % (0.0-13.0); NEUTROPHILS # (AUTO) 9.5 x10^3/uL (2.2-4.8); NEUTROPHILS % (AUTO) 78.4 % (42.0-75.0); PLATELET COUNT 415 X10^3/uL (150.0-450.0); RED CELL DISTRIBUTION WIDTH 13.6 % (11.6-16.5); WHITE BLOOD COUNT 12.1 X10^3/uL (3.6-10.0)
[2020-01-05] MEDS ORDERED: REGLAN INJ 10 MG VIAL IV ONE (06:01)
[2020-01-05] MEDS ORDERED: REGLAN INJ 10 MG VIAL ONE (06:03)
[2020-01-05 06:05] LABS: BLOOD UREA NITROGEN 17 mg/dL (7-18); CALCIUM 9.7 mg/dL (8.5-10.1); CARBON DIOXIDE 22.7 mmol/L (21-32); CHLORIDE 101 mmol/L (98-107); COR NA(FOR HYPERGLY) 139 mmol/L (136-145); CREATININE 1.15 mg/dL (0.55-1.02); SODIUM 134 mmol/L (136-145); TROPONIN I < 0.02 ng/mL (0-1.5); eGFR NON BLACK RACES 49 (>60)
[2020-01-05 06:08] LABS: ALANINE AMINOTRANSFERASE 34 Units/L (12-78); ALBUMIN 3.6 g/dL (3.4-5.0); ALKALINE PHOSPHATASE 124 Units/L (46-116); ASPARTATE AMINO TRANSFERASE 27 Units/L (15-37); CKMB % 2.4 % (<4); CREATINE KINASE 95 Units/L (26-192); CREATINE KINASE MB 2.3 ng/mL (0-4.0); LIPASE 229 Units/L (73-393); TOTAL PROTEIN 7.8 g/dL (6.4-8.2)
--- NOTE | 2020-01-05 06:10 | RAD ---
HISTORYC/O SORE THROAT, NAUSEA AND PRODUCTIVE COUGH SINCE THURS. PT STATES SHE HAS BEEN HAVING CLAMMY SPELLS, ALSO.STUDYCHEST x-ray, 1 VIEWCOMPARISONNoneFINDINGSThe trachea is midline. The cardiac silhouette is unremarkable .No focal infiltrate. Calcified granuloma is seen in the left lung. No pneumothorax or pleural effusion is seen.No acute bony abnormality is seen.IMPRESSIONNo acute cardiopulmonary abnormality is seen.Electronically signed by: Antonio Sesay (Jan 05, 2020 06:08:38)
[2020-01-05] MEDS ORDERED: MAGNESIUM SULFATE 50% INJ VIAL IV ONE ×2 (06:16→07:27)
[2020-01-05] MEDS ORDERED: NS 500 ML IV 500 ML IV ONE (06:18)
[2020-01-05] MEDS ORDERED: ZOFRAN TAB 4 MG ONE (06:26)
[2020-01-05] MEDS ORDERED: ZOFRAN TAB 4 MG PO STA (06:35)
[2020-01-05] MEDS ORDERED: NS 1000 ML 1,000 ML ONE (06:38)
[2020-01-05] MEDS ORDERED: MAGNESIUM SULFATE 1 GRAM/100 mL PREMIX 2 G/200 ML BAG IV ONE (06:38)
[2020-01-05] MEDS ORDERED: PHENERGAN INJ 25 MG IM ONE ×4 (06:39→10:00)
[2020-01-05] MEDS ORDERED: APRESOLINE INJ 20 MG VIAL IM ONE (06:51)
[2020-01-05] MEDS ORDERED: APRESOLINE INJ 20 MG VIAL ONE (06:55)
--- NOTE | 2020-01-05 06:58 | DR.SOBA ---
HPI <Sayra Moreno - Last Filed: 01/06/20 08:36> Time Seen Time Seen by Provider: 01/05/20 05:17 Primary Care Physician Primary Care Physician: ADRIANNA CONNELL HPI Comment HPI Comment: Nausea, vomiting, mild cough, shob, weakness x 3 days, as well as pain under the right lower ribs and diaphoresis. Last BM 3 days ago. Denies fever, chills. Complaints Chief Complaint:: PT IN ED VIA WHEELCHAIR WITH C/O SORE THROAT, NAUSEA AND PRODUCTIVE COUGH SINCE . 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 COVID-19 Coronavirus risk:travel/contact w/high risk person: No Has patient experienced Coronavirus symptoms: Yes Coronavirus symptoms experienced: Coughing and Shortness of Breath Source History Provided: Patient Mode of Arrival Mode of Arrival: Wheelchair Timing Onset of Chief Complaint: 01/02/20 <TAJ PLUMMER - Last Filed: 01/07/20 04:32> HPI Comment HPI Comment: PATIENT IS 74YR OLD FEMALE IN ER WITH NAUSEA, VOMITING AND GENERALIZED WEAKNESS TIMES 3 DAYS. HAVE HISTORY OF DM, HTN, CROHNS DISEASE AND PACREATITIS. PATIENT CONTINUE WITH PERSISTENT VOMITING IN ER. HER CARE WAS TRANSFER OVER TO [facility] AT CHANGE OF SHIFT AT 08:10AM. Complaints Chief Complaint Doctors Comments: NAUSEA, VOMITING, GENERALIZED WEAKNESS TIMES 3 DAYS. COVID-19 Coronavirus risk:travel/contact w/high risk person: No Has patient experienced Coronavirus symptoms: No Reviewed Nurses Notes Reviewed: Yes Source History Provided: Patient and Family Member Context Onset:: At Rest PE Risk Factors:: None History of:: None Currently on:: Neither Prehospital Care:: None Modifying Factors Worsens:: Exertion Improves:: Sitting Up Associated Signs and Symptoms Associated Signs and Symptoms: Cough and Sore Throat PMH <Sayra Moreno - Last Filed: 01/06/20 08:36> PMH Past Medical History: Yes Past Medical History: Anemia, Arthritis, COPD, Coronary Artery Disease, Diabetes, Dyslipidemia, GERD, Hypertension, Hypothyroidism and Renal Disease Past Medical History Comment: FIBROMYALGIA PANCREATITIS CROHN'S DISEASE TACHYCARDIA VALVULAR HEART DISEASE A-FIB/FLUTTER CHRONIC DIARRHEA Past Surgical History: Yes Surgical History: Cholecystectomy, Hysterectomy, Mastectomy and Tonsillectomy Past Surgical History Comment: ADNOIDECTOMY BREAST RECONSTRUCTION Family History History of Family Medical Conditions: Yes Family Medical History: Diabetes Mellitus, Cancer and [place] Social History Does patient currently use any type of tobacco product: No Have you used tobacco products in the last 12 months: No Type of Tobacco Use: None Does any household member use tobacco: No Alcohol Use: None Do you use any recreational Drugs:: No Lives With: Spouse Lives Where: Home Travel Risk Coronavirus risk:travel/contact w/high risk person: No Has patient experienced Coronavirus symptoms: Yes Coronavirus symptoms experienced: Coughing and Shortness of Breath Infectious screening In the last 2 months have you had wt loss of >10#?: NO Have you had fever, night sweats or hemotysis?: No Have you traveled outside the country in the last 6 months?: No Isolation: Droplet ROS <Sayra Moreno - Last Filed: 01/06/20 08:36> Review of Systems Constitutional: See HPI Eyes: No Symptoms Reported ENTM: Throat Pain Respiratoy: See HPI Cardiovascular: No Symptoms Reported Gastrointestinal/Abdominal: See HPI Genitourinary: No Symptoms Reported Neurological: No Symptoms Reported Musculoskeletal: No Symptoms Reported Integumentary: No Symptoms Reported Hematologic/Lymphatic: No Symptoms Reported Endocrine: No Symptoms Reported Psychiatric: No Symptoms Reported All Other Systems: Reviewed and Negative <TAJ PLUMMER - Last Filed: 01/07/20 04:32> Review of Systems Constitutional: Weakness and Fatigue Respiratoy: Moist Cough Gastrointestinal/Abdominal: Abdominal Pain, Diarrhea (CHRONIC DIARRHEA.), Nausea and Vomiting Endocrine: Increased Thirst; negative Increased Urine PE <Sayra Moreno - Last Filed: 01/06/20 08:36> Vital Signs Vitals: Temperature 98.5 F Pulse Rate 111 Respiratory Rate 16 Blood Pressure [Left Calf] 118/57 Blood Pressure [Right Calf] 141/94 Blood Pressure [Left Arm] 190/90 Blood Pressure 246/107 O2 Sat by Pulse Oximetry 98 General Limitations: No Limitations General Appearance: Alert and In No Apparent Distress Head Head Exam: Normal Inspection Eyes Eye exam: Normal Appearance ENT ENT Exam: Normal Exam Neck Neck Exam: Normal Inspection Chest Chest Inspection: Normal Inspection Respiratory Respiratory Exam: Normal Lung Sounds Bilat Respiratory Exam: Bilateral: Clear to Auscultation Cardiovascular Cardiovascular Exam: Regular Rate and Normal Rhythm Abdominal Exam Abdominal Exam: Normal Inspection, Normal Bowel Sounds, Soft and Tenderness (mild, diffuse); negative Distention, Guarding, Rebound and Rigidity Extremities Extremities Exam: Normal Inspection and Normal Capillary Refill Back Back Exam: Normal Inspection Neurologic Neurological Exam: Alert, Oriented X3 and CN II-XII Intact; negative Motor Sensory Deficit Psychiatric Psychiatric Exam: Normal Affect and Normal Mood Skin Skin Exam: Warm, Dry, Intact and Normal Color <TAJ PLUMMER - Last Filed: 01/07/20 04:32> Vital Signs Vitals: Temperature 98.5 F Pulse Rate 111 Respiratory Rate 16 Blood Pressure [Left Calf] 118/57 Blood Pressure [Right Calf] 141/94 Blood Pressure [Left Arm] 190/90 Blood Pressure 246/107 O2 Sat by Pulse Oximetry 98 General Limitations: No Limitations General Appearance: Alert and In No Apparent Distress Head Head Exam: Atraumatic Eyes Eye exam: Normal Appearance and PERRL; negative Scleral Icterus and Conjunctival Injection ENT ENT Exam: Normal Exam, Normal Oropharynx, Normal External Ear Exam and TM's Normal Bilaterally Neck Neck Exam: Normal Inspection and Trachea Midline; negative Tenderness and Lymphadenopathy Chest Chest Inspection: Symmetric Chest Wall Rise; negative Tenderness Respiratory Respiratory Exam: negative Accessory Muscle Use and Respiratory Distress Respiratory Exam: Bilateral: Rhonchi and Lower: Rhonchi Cardiovascular Cardiovascular Exam: Tachycardia; negative Systolic Murmur and Diastolic Murmur Abdominal Exam Abdominal Exam: Normal Bowel Sounds, Soft and Tenderness Abdominal Tenderness: Diffuse and Moderate Extremities Extremities Exam: Normal Inspection and Normal Capillary Refill Back Back Exam: Paraspinal Tenderness Neurologic Neurological Exam: Alert and Oriented X3; negative Motor Sensory Deficit Psychiatric Psychiatric Exam: Normal Affect <TAJ PLUMMER - Last Filed: 01/07/20 04:32> Additional Information Obtained Additional Information Obtained From: Old Records and Family Differential Diagnosis Differential Diagnosis: Bronchitis, Dysrhythmia, Hypertensive Emergency, Hyponatremia, Mycardial Infarction, Pneumonia and URI Differential Diagnosis Comment:: GASTROENTERITIS, INFLAMATORY BOWEL DISERSE, PANCREATITIS, BOWEL OBSTRUCTION COURSE <Sayra Moreno - Last Filed: 01/06/20 08:36> Treatment Treatment: Patient with intractable vomiting s/p Zofran 4mg x 2, Reglan 10mg x 1, now Phenergan 12.5mg given. Hydralazine 10mg IM given. Will attempt CT scan abdomen / pelvis with IV contrast only due to PO intolerance. Endorsed to Dr. Plummer @ 8:10AM. <MICHELLEJOSE GUADALUPESULEMA PLUMMER - Last Filed: 01/07/20 04:32> Treatment Treatment: SEE ORDERS. ZOFRAN 4MG IV, VASOTEC 1.25MG IV TORADOL 30MG IV AND PROTONIX 40MG IV. NAUSEA AND VOMITING AND ELEVATED BP PERSIST IN ER. PATIENT WILL BE ADMITTED. Consultation Consultation Comments: DISCUSSED PATIENT WITH DR. HITCHCOCK AND HE WILL ADMIT PATIENT. Education/Counseling Education/Counseling: Patient and Family Educated On: Diagnosis ROR <Elsamiranda Sarahpreeti - Last Filed: 01/06/20 08:36> Labs Reviewed Result Diagrams: 01/06/20 05:45 01/06/20 05:45 Laboratory: 01/05/20 07:45 Urine,Clean Catch Urine Culture - Final WBC 12.1 X10^3/uL (3.6-10.0) H 01/05/20 05:35 RBC 5.20 X10^6/uL (3.5-5.4) 01/05/20 05:35 Hgb 14.9 g/dL (12.0-16.0) 01/05/20 05:35 Hct 46.2 % (36.0-47.0) 01/05/20 05:35 MCV 88.9 fL (80.0-100.0) 01/05/20 05:35 MCH 28.6 pg (27.0-34.0) 01/05/20 05:35 MCHC 32.2 g/dL (33.0-35.0) L 01/05/20 05:35 RDW 13.6 % (11.6-16.5) 01/05/20 05:35 Plt Count 415 X10^3/uL (150.0-450.0) 01/05/20 05:35 MPV 8.7 fL (7.4-11.0) 01/05/20 05:35 Neut % (Auto) 78.4 % (42.0-75.0) H 01/05/20 05:35 Lymph % (Auto) 17.0 % (21.0-51.0) L 01/05/20 05:35 Isabella % (Auto) 3.5 % (0.0-13.0) 01/05/20 05:35 Eos % (Auto) 0.3 % (0.9-2.9) L 01/05/20 05:35 Baso % (Auto) 0.8 % (0.2-1.0) 01/05/20 05:35 Neut # (Auto) 9.5 x10^3/uL (2.2-4.8) H 01/05/20 05:35 Lymph # (Auto) 2.1 X10^3/uL (1.3-2.9) 01/05/20 05:35 Isabella # (Auto) 0.4 x10^3/uL (0.3-0.8) 01/05/20 05:35 Eos # (Auto) 0.0 x10^3/uL (0.0-0.2) 01/05/20 05:35 Baso # (Auto) 0.1 X10^3/uL (0.0-0.1) 01/05/20 05:35 Absolute Nucleated RBC 0.1 /100WBC 01/05/20 05:35 Sodium 134 mmol/L (136-145) L 01/05/20 05:35 Corrected Sodium 139 mmol/L (136-145) 01/05/20 05:35 Potassium 5.8 mmol/L (3.5-5.1) H 01/05/20 05:35 Chloride 101 mmol/L (98-107) 01/05/20 05:35 Carbon Dioxide 22.7 mmol/L (21-32) 01/05/20 05:35 BUN 17 mg/dL (7-18) 01/05/20 05:35 Creatinine 1.15 mg/dL (0.55-1.02) H 01/05/20 05:35 Est GFR (MDRD) Af Amer 59 (>60) 01/05/20 05:35 Est GFR (MDRD) Non-Af 49 (>60) L 01/05/20 05:35 Glucose 296 mg/dL (65-99) H 01/05/20 05:35 Calcium 9.7 mg/dL (8.5-10.1) 01/05/20 05:35 Corrected Calcium TNP 01/05/20 05:35 Magnesium 1.0 mg/dL (1.7-2.9) L 01/05/20 05:35 Total Bilirubin 0.40 mg/dL (0.2-1.0) 01/05/20 05:35 AST 27 Units/L (15-37) 01/05/20 05:35 ALT 34 Units/L (12-78) 01/05/20 05:35 Alkaline Phosphatase 124 Units/L (46-116) H 01/05/20 05:35 Creatine Kinase 95 Units/L (26-192) 01/05/20 05:35 CK-MB (CK-2) 2.3 ng/mL (0-4.0) 01/05/20 05:35 CK/CKMB % Calc 2.4 % (<4) 01/05/20 05:35 Troponin I < 0.02 ng/mL (0-1.5) 01/05/20 05:35 Total Protein 7.8 g/dL (6.4-8.2) 01/05/20 05:35 Albumin 3.6 g/dL (3.4-5.0) 01/05/20 05:35 Globulin 4.2 g/dL (2.5-4.5) 01/05/20 05:35 Albumin/Globulin Ratio 0.9 Ratio (1.1-2.1) L 01/05/20 05:35 Amylase 31 Units/L (25-115) 01/05/20 05:35 Lipase 229 Units/L (73-393) 01/05/20 05:35 Specimen Type Clean catch urine 01/05/20 07:45 Urine Color Yellow (YELLOW) 01/05/20 07:45 Urine Appearance Slightly hazy (CLEAR) 01/05/20 07:45 Urine pH 5.0 (5.0 - 8.0) 01/05/20 07:45 Ur Specific [place] 1.025 (1.000-1.030) 01/05/20 07:45 Urine Protein 3+ (NEGATIVE) 01/05/20 07:45 Urine Glucose (UA) 2+ (NEGATIVE) 01/05/20 07:45 Urine Ketones Negative (NEGATIVE) 01/05/20 07:45 Urine Occult Blood 1+ (NEGATIVE) 01/05/20 07:45 Urine Nitrite Negative (NEGATIVE) 01/05/20 07:45 Urine Bilirubin Negative (NEGATIVE) 01/05/20 07:45 Urine Urobilinogen Normal (NORMAL) 01/05/20 07:45 Ur Leukocyte Esterase 1+ (NEGATIVE) 01/05/20 07:45 Urine RBC 3-5 /HPF (0-3) A 01/05/20 07:45 Urine WBC 5-10 /HPF (0-5) A 01/05/20 07:45 Ur Squamous Epith Cells Moderate /HPF (NEGATIVE) 01/05/20 07:45 Urine Bacteria 2+ /HPF (NEGATIVE) 01/05/20 07:45 Ur Culture Indicated? Yes/culture set up 01/05/20 07:45 Acetone, Semi-Quant Negative (NEGATIVE) 01/05/20 05:35 Influenza Type A Ag Negative-presumptive (NEGATIVE) 01/05/20 08:24 Influenza Type B Ag Negative-presumptive (NEGATIVE) 01/05/20 08:24 SARS-CoV-2 (PCR) Negative (NEGATIVE) 01/05/20 08:25 S. pyogenes (TEM-PCR) Cancelled 01/05/20 08:25 EKG [place]: Normal Rhythm: NSR Block: None Hypertrophy: None ST: Normal <TAJ PLUMMER - Last Filed: 01/07/20 04:32> Labs Reviewed Laboratory Results Reviewed?: Yes Laboratory: 01/05/20 07:45 Urine,Clean Catch Urine Culture - Final WBC 12.1 X10^3/uL (3.6-10.0) H 01/05/20 05:35 RBC 5.20 X10^6/uL (3.5-5.4) 01/05/20 05:35 Hgb 14.9 g/dL (12.0-16.0) 01/05/20 05:35 Hct 46.2 % (36.0-47.0) 01/05/20 05:35 MCV 88.9 fL (80.0-100.0) 01/05/20 05:35 MCH 28.6 pg (27.0-34.0) 01/05/20 05:35 MCHC 32.2 g/dL (33.0-35.0) L 01/05/20 05:35 RDW 13.6 % (11.6-16.5) 01/05/20 05:35 Plt Count 415 X10^3/uL (150.0-450.0) 01/05/20 05:35 MPV 8.7 fL (7.4-11.0) 01/05/20 05:35 Neut % (Auto) 78.4 % (42.0-75.0) H 01/05/20 05:35 Lymph % (Auto) 17.0 % (21.0-51.0) L 01/05/20 05:35 Isabella % (Auto) 3.5 % (0.0-13.0) 01/05/20 05:35 Eos % (Auto) 0.3 % (0.9-2.9) L 01/05/20 05:35 Baso % (Auto) 0.8 % (0.2-1.0) 01/05/20 05:35 Neut # (Auto) 9.5 x10^3/uL (2.2-4.8) H 01/05/20 05:35 Lymph # (Auto) 2.1 X10^3/uL (1.3-2.9) 01/05/20 05:35 Isabella # (Auto) 0.4 x10^3/uL (0.3-0.8) 01/05/20 05:35 Eos # (Auto) 0.0 x10^3/uL (0.0-0.2) 01/05/20 05:35 Baso # (Auto) 0.1 X10^3/uL (0.0-0.1) 01/05/20 05:35 Absolute Nucleated RBC 0.1 /100WBC 01/05/20 05:35 Sodium 134 mmol/L (136-145) L 01/05/20 05:35 Corrected Sodium 139 mmol/L (136-145) 01/05/20 05:35 Potassium 5.8 mmol/L (3.5-5.1) H 01/05/20 05:35 Chloride 101 mmol/L (98-107) 01/05/20 05:35 Carbon Dioxide 22.7 mmol/L (21-32) 01/05/20 05:35 BUN 17 mg/dL (7-18) 01/05/20 05:35 Creatinine 1.15 mg/dL (0.55-1.02) H 01/05/20 05:35 Est GFR (MDRD) Af Amer 59 (>60) 01/05/20 05:35 Est GFR (MDRD) Non-Af 49 (>60) L 01/05/20 05:35 Glucose 296 mg/dL (65-99) H 01/05/20 05:35 Calcium 9.7 mg/dL (8.5-10.1) 01/05/20 05:35 Corrected Calcium TNP 01/05/20 05:35 Magnesium 1.0 mg/dL (1.7-2.9) L 01/05/20 05:35 Total Bilirubin 0.40 mg/dL (0.2-1.0) 01/05/20 05:35 AST 27 Units/L (15-37) 01/05/20 05:35 ALT 34 Units/L (12-78) 01/05/20 05:35 Alkaline Phosphatase 124 Units/L (46-116) H 01/05/20 05:35 Creatine Kinase 95 Units/L (26-192) 01/05/20 05:35 CK-MB (CK-2) 2.3 ng/mL (0-4.0) 01/05/20 05:35 CK/CKMB % Calc 2.4 % (<4) 01/05/20 05:35 Troponin I < 0.02 ng/mL (0-1.5) 01/05/20 05:35 Total Protein 7.8 g/dL (6.4-8.2) 01/05/20 05:35 Albumin 3.6 g/dL (3.4-5.0) 01/05/20 05:35 Globulin 4.2 g/dL (2.5-4.5) 01/05/20 05:35 Albumin/Globulin Ratio 0.9 Ratio (1.1-2.1) L 01/05/20 05:35 Amylase 31 Units/L (25-115) 01/05/20 05:35 Lipase 229 Units/L (73-393) 01/05/20 05:35 Specimen Type Clean catch urine 01/05/20 07:45 Urine Color Yellow (YELLOW) 01/05/20 07:45 Urine Appearance Slightly hazy (CLEAR) 01/05/20 07:45 Urine pH 5.0 (5.0 - 8.0) 01/05/20 07:45 Ur Specific [place] 1.025 (1.000-1.030) 01/05/20 07:45 Urine Protein 3+ (NEGATIVE) 01/05/20 07:45 Urine Glucose (UA) 2+ (NEGATIVE) 01/05/20 07:45 Urine Ketones Negative (NEGATIVE) 01/05/20 07:45 Urine Occult Blood 1+ (NEGATIVE) 01/05/20 07:45 Urine Nitrite Negative (NEGATIVE) 01/05/20 07:45 Urine Bilirubin Negative (NEGATIVE) 01/05/20 07:45 Urine Urobilinogen Normal (NORMAL) 01/05/20 07:45 Ur Leukocyte Esterase 1+ (NEGATIVE) 01/05/20 07:45 Urine RBC 3-5 /HPF (0-3) A 01/05/20 07:45 Urine WBC 5-10 /HPF (0-5) A 01/05/20 07:45 Ur Squamous Epith Cells Moderate /HPF (NEGATIVE) 01/05/20 07:45 Urine Bacteria 2+ /HPF (NEGATIVE) 01/05/20 07:45 Ur Culture Indicated? Yes/culture set up 01/05/20 07:45 Acetone, Semi-Quant Negative (NEGATIVE) 01/05/20 05:35 Influenza Type A Ag Negative-presumptive (NEGATIVE) 01/05/20 08:24 Influenza Type B Ag Negative-presumptive (NEGATIVE) 01/05/20 08:24 SARS-CoV-2 (PCR) Negative (NEGATIVE) 01/05/20 08:25 S. pyogenes (TEM-PCR) Cancelled 01/05/20 08:25 XRAY XRAY Interpreted by: Radiologist (REPORT NOTED AND DISCUSSED WITH PATIENT AND HER .) Opioid <Sayra Moreno - Last Filed: 01/06/20 08:36> Opioid Risk Tool Age (Carlos Manuel box if 16-45): No History of Preadolescent Sexual Abuse: No Total: 0 Total Score Risk Category: Low Risk Copyright: [employer] predicting aberrant behaviors <TAJ PLUMMER - Last Filed: 01/07/20 04:32> Opioid Risk Tool Age (Carlos Manuel box if 16-45): No Total: 0 Total Score Risk Category: Low Risk <Sayra Moreno - Last Filed: 01/06/20 08:36> Diagnosis Discharge Problem: Hypertensive emergency Abdominal pain Qualifiers: Abdominal location: generalized Qualified Code(s): R10.84 - Generalized abdominal pain Nausea & vomiting Qualifiers: Vomiting type: unspecified Vomiting Intractability: intractable Qualified Code(s): R11.2 - Nausea with vomiting, unspecified UTI (urinary tract infection) Qualifiers: Urinary tract infection type: site unspecified Hematuria presence: with hematuria Qualified Code(s): N39.0 - Urinary tract infection, site not specified Instructions Instructions: Viral Gastroenteritis, Adult Urinary Tract Infection, Adult Type 2 Diabetes Mellitus, Self Care, Adult, [id number] Hypertension Crohn's Disease Forms: Excuse From Work Precautions for COVID19 Patient Portal Social Distancing
[2020-01-05] MEDS ORDERED: MAGNESIUM SULFATE 1 GRAM/100 mL PREMIX 1 G/100 ML BAG IV ONE ×3 (07:19→11:10)
--- NOTE | 2020-01-05 07:55 | CT ---
HISTORYintractable vomitingSTUDYCT ABDOMEN/PELVIS W/O IV contrastCOMPARISONNoneTECHNIQUEMultiple axial images of the abdomen and pelvis were obtained from the lung bases to the pubic symphysis without the administration of IV contrast. Dose reduction techniques including Automated Exposure Control (AEC) and adjustment of mA and kV were utilized.FINDINGSThe visualized portions of the lung bases reveal a slightly nodular 3 millimeter focus in the right lung base.The liver and spleen display no abnormalities.Prior cholecystectomy. No biliary ductal dilation.No pancreatic abnormality is seen.The adrenal glands appear normal.No hydronephrosis or renal abnormality is seen. Ureters and bladder appear normal. Multiple phleboliths are seen in the pelvis.Likely mild right-sided constipation. There is a small hiatus hernia. Appendix is not seen but no pericecal inflammation is seen.Likely 1.2 cm cyst in the right ovary.Abdominal aorta is normal in size.No suspicious lymphadenopathy.No free intraperitoneal air or fluid is seen.No acute bony abnormality is seen.IMPRESSIONMild right-sided constipation and small hiatus hernia.Likely benign 1.2 cm cyst in the right ovary.Electronically signed by: Antonio Sesay (Jan 05, 2020 07:53:36)
[2020-01-05 08:29] LABS: BILIRUBIN,URINE NEGATIVE (NEGATIVE); BLOOD/HEMOGLOBIN,URINE 1+ (NEGATIVE); GLUCOSE, URINE 2+ (NEGATIVE); KETONES,URINE NEGATIVE (NEGATIVE); LEUKOCYTE ESTERASE ,URINE 1+ (NEGATIVE); NITRITES,URINE NEGATIVE (NEGATIVE); PROTEIN,URINE 3+ (NEGATIVE); UROBILINOGEN,URINE NORMAL (NORMAL)
[2020-01-05 08:37] LABS: APPEARANCE,URINE SLIGHTLY HAZY (CLEAR); BACTERIA,URINE 2+ /HPF (NEGATIVE); COLOR,URINE YELLOW (YELLOW); SQUAMOUS EPITHELIAL CELL,UR MODERATE /HPF (NEGATIVE)
[2020-01-05] MEDS ORDERED: VASOTEC INJ 2.5 MG VIAL IVP ONE (09:57)
[2020-01-05] MEDS ORDERED: TORADOL 30 MG VIAL IVP ONE (09:58)
[2020-01-05] MEDS ORDERED: PROTONIX INJ 40 MG VIAL IVP ONE (09:58)
[2020-01-05] MEDS ORDERED: VASOTEC INJ 2.5 MG VIAL ONE (10:00)
[2020-01-05] MEDS ORDERED: TORADOL 30 MG VIAL ONE (10:00)
[2020-01-05] MEDS ORDERED: PROTONIX INJ 40 MG VIAL ONE (10:00)
[2020-01-05] MEDS ORDERED: MORPHINE SULFATE INJ 2 MG INJ IVP ONE (11:20)
[2020-01-05] MEDS ORDERED: MORPHINE SULFATE INJ 2 MG INJ ONE (11:21)
[2020-01-05] MEDS ORDERED: ESZOPICLONE 2 MG PO PRN (11:56)
[2020-01-05] MEDS ORDERED: ZANAFLEX PO PRN (11:56)
[2020-01-05] MEDS ORDERED: PRED FORTE 1 % RIGHTEYE SCH (12:00)
[2020-01-05] MEDS ORDERED: APRESOLINE INJ 20 MG VIAL IVP PRN (12:01)
[2020-01-05] MEDS ORDERED: LASIX IVP ONE ×2 (12:08→15:07)
[2020-01-05] MEDS ORDERED: MORPHINE SULFATE INJ 2 MG INJ IVP PRN (12:09)
--- NOTE | 2020-01-05 12:11 | DR.H&P ---
H&P - History & Physical for Day of: H&P Date: 01/05/20 - Chief Complaint Chief Complaint: N/V/D, COUGH AND SOB - History of Present Illness History of Present Illness: PT IS 74 WF ER ADMISSION WITH HYPERTENSIVE URGENCY. PT REPORTS SHE HAS HAD N/V/D SINCE MONDAY, HAS NOT BEEN ABLE TO KEEP PO MEDICATION DOWN. PT REPORTS PMH OF GERD, HTN, FIBROMYALGIA, ANXIETY, RLS. PT DENIES ANY KNOWN CARDIAC HX. PT ADMITTED FOR TREATMENT OF ACUTE ILLNESS INCLUDING UTI - Past Medical History Past Medical History: Coronary Artery Disease, Hypertension, Dyslipidemia, Diabetes, Renal Disease, Hypothyroidism, Anemia, COPD, GERD, Arthritis Additional Medical History: Diabetic Neuropathy, Chronic Back Pain, Fibrocystic Breast Disease, Crohns Disease, Fibromyalgia, Mitral Valve Leak, Valvular Heart Disease, Bronchitits, Uterine Fibroids, Diarrhea, Fibromyalgia, Restless Leg Syndrome, Parathyroid Disease, Previous Blood Transfusion - Past Surgical History Surgical History: Cholecystectomy, Hysterectomy, Mastectomy, Tonsillectomy Additional Surgical History: Bilateral Mastectomy due to stones - Family History Family Medical History: Diabetes Mellitus, Cancer, [place] - Social History Does patient currently use any type of tobacco product: No Have you used tobacco products in the last 12 months: No Type of Tobacco Use: None Does any household member use tobacco: No Alcohol Use: None - Medications Home Medications: acetaminophen [From Lortab] Allergy (Verified 07/28/18 20:35) aluminum hydroxide [From Ascriptin] Allergy (Verified 07/28/18 20:35) aripiprazole [From Abilify] Allergy (Verified 07/28/18 20:35) aspirin [From Ascriptin] Allergy (Verified 07/28/18 20:35) bee pollen Allergy (Verified 07/28/18 20:35) calcium carbonate [From Ascriptin] Allergy (Verified 07/28/18 20:35) coconut oil Allergy (Verified 07/28/18 20:35) codeine Allergy (Verified 07/28/18 20:35) hydrocodone [From Lortab] Allergy (Verified 07/28/18 20:35) latex Allergy (Verified 07/28/18 20:35) levetiracetam [From Keppra] Allergy (Verified 07/28/18 20:35) metformin Allergy (Verified 07/28/18 20:35) niacin Allergy (Verified 07/28/18 20:35) oxycodone [From Percocet] Allergy (Verified 07/28/18 20:35) pregabalin [From Lyrica] Allergy (Verified 07/28/18 20:35) propoxyphene [From Darvon-N] Allergy (Verified 07/28/18 20:35) propranolol [From Inderal [place]] Allergy (Verified 07/28/18 20:35) red dye Allergy (Verified 07/28/18 20:35) rosuvastatin [From Crestor] Allergy (Verified 07/28/18 20:35) IV DYE Allergy (Uncoded 01/05/20 07:23) CONTINUE taking the following medications amlodipine 5 mg PO DAILY 01/05/20 [History] duloxetine 30 mg PO DAILY 01/05/20 [History] eszopiclone 2 mg PO HS PRN 01/05/20 [History] famotidine 20 mg PO BID 01/05/20 [History] metoprolol succinate 50 mg PO DAILY 01/05/20 [History] pantoprazole 40 mg PO BID 01/05/20 [History] ropinirole 0.5 mg PO DAILY 01/05/20 [History] trazodone 50 mg PO DAILY 01/05/20 [History] - Review of Systems Constitutional: Weakness Eyes: No Symptoms Reported ENT: No Symptoms Reported Respiratory: Shortness of Breath Cardiovascular: denies: Chest Pain, Edema Gastrointestinal: Nausea, Vomiting, Abdominal Pain, Diarrhea Genitourinary: Frequency Musculoskeletal: Back Pain Skin: No Symptoms Reported Neurological: Weakness - Physical Exam Vital Signs: Temperature 98.5 F Pulse Rate 109 Respiratory Rate 29 Blood Pressure [Left Calf] 118/57 Blood Pressure [Right Calf] 141/94 Blood Pressure [Left Arm] 190/90 Blood Pressure 230/100 O2 Sat by Pulse Oximetry 94 Oriented: Normal Eyes: Normal Ear: Normal Nose: Normal Throat: Normal Respiratory: RLL Diminished, LLL Diminished Cardiovascular: Tachycardia. negative: Edema : Normal Auscultation: Bowel Sounds: Normal Palpation: Normal Tenderness: Diffuse, Mild Skin: Decreased Turgur Musculoskeletal: Leg, Back:Thoracic, Back:Lumbar Mood Description: Anxious Affect: Anxious Speech Pattern: Clear, Appropriate - Assessment/Plan (1) Hypertensive urgency Status: Acute Plan: ADMIT, CONTINUOUS BP MONITORING. SERIAL CE AND EKG. IV HDYRATION, ELECTROLYTE IMBALANCE CORRECTION. ADMISSION LABS, CXR AND CT ABD OBTAINED IN ER. BP CONTROL, BS CONTROL. NPO, VERIFY HOME MEDICATION, STOOL STUDIES, BC AND UC ON ADMISSON. 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 Diabetes mellitus complication status: with kidney complications Diabetes mellitus complication detail: with chronic kidney disease Status: Chronic - Allergies Allergies/Adverse Reactions: Allergies Allergy/AdvReac Type Severity Reaction Status Date / Time acetaminophen [From Lortab] Allergy Verified 07/28/18 20:35 aluminum hydroxide Allergy Verified 07/28/18 20:35 [From Ascriptin] aripiprazole [From Abilify] Allergy Verified 07/28/18 20:35 aspirin [From Ascriptin] Allergy Verified 07/28/18 20:35 bee pollen Allergy Verified 07/28/18 20:35 calcium carbonate Allergy Verified 07/28/18 20:35 [From Ascriptin] coconut oil Allergy Verified 07/28/18 20:35 codeine Allergy Verified 07/28/18 20:35 hydrocodone [From Lortab] Allergy Verified 07/28/18 20:35 latex Allergy Verified 07/28/18 20:35 levetiracetam [From Keppra] Allergy Verified 07/28/18 20:35 metformin Allergy Verified 07/28/18 20:35 niacin Allergy Verified 07/28/18 20:35 oxycodone [From Percocet] Allergy Verified 07/28/18 20:35 pregabalin [From Lyrica] Allergy Verified 07/28/18 20:35 propoxyphene [From Darvon-N] Allergy Verified 07/28/18 20:35 propranolol [From Inderal [place]] Allergy Verified 07/28/18 20:35 red dye Allergy Verified 07/28/18 20:35 rosuvastatin [From Crestor] Allergy Verified 07/28/18 20:35 IV DYE Allergy Uncoded 01/05/20 07:23
[2020-01-05 12:36] LABS: CKMB % 2.9 % (<4); CREATINE KINASE 96 Units/L (26-192); CREATINE KINASE MB 2.8 ng/mL (0-4.0); TROPONIN I < 0.02 ng/mL (0-1.5)
[2020-01-05] MEDS ORDERED: MICRO K EXTEN CAP 10 MEQ PO PRN (13:38)
[2020-01-05] MEDS ORDERED: KLOR-CON PO PRN (13:38)
[2020-01-05] MEDS ORDERED: K-DUR TAB 20 MEQ PO PRN (13:38)
[2020-01-05] MEDS ORDERED: K-RIDER 10 MEQ/NS 100 ML 10 MEQ/100 ML BAG IV PRN (13:38)
[2020-01-05] MEDS ORDERED: POTASSIUM CHLORIDE LIQ 20 MEQ UDC PO PRN (13:38)
[2020-01-05] MEDS ORDERED: POTASSIUM CHL 60 MEQ/NS 0.45% 500 ML IV PRN (13:38)
[2020-01-05] MEDS ORDERED: POTASSIUM CHL 40 MEQ/NS 0.45% 500 ML IV PRN (13:38)
[2020-01-05] MEDS ORDERED: MAGNESIUM SULFATE 1 GRAM/100 mL PREMIX 1 GM/100 ML BAG IV PRN (13:38)
[2020-01-05] MEDS: SYNTHROID 125 mcg TAB PO SCH (15:18)
[2020-01-05] MEDS: VALIUM PO SCH ×2 (15:18→22:53)
[2020-01-05] MEDS: CARDIZEM CD 180 MG 24-HR PO SCH (15:18)
[2020-01-05] MEDS: NS 1000 ML 1,000 ML IV SCH (15:31)
[2020-01-05 17:50] LABS: ALANINE AMINOTRANSFERASE 33 Units/L (12-78); ALBUMIN 3.7 g/dL (3.4-5.0); ALKALINE PHOSPHATASE 120 Units/L (46-116); ASPARTATE AMINO TRANSFERASE 34 Units/L (15-37); BLOOD UREA NITROGEN 22 mg/dL (7-18); CALCIUM 9.8 mg/dL (8.5-10.1); CARBON DIOXIDE 23.4 mmol/L (21-32); CHLORIDE 100 mmol/L (98-107); COR NA(FOR HYPERGLY) 140 mmol/L (136-145); CREATININE 1.32 mg/dL (0.55-1.02); SODIUM 134 mmol/L (136-145); eGFR NON BLACK RACES 42 (>60)
[2020-01-05 18:24] LABS: CKMB % 1.1 % (<4); CREATINE KINASE 254 Units/L (26-192); CREATINE KINASE MB 2.8 ng/mL (0-4.0); TROPONIN I < 0.02 ng/mL (0-1.5)
[2020-01-05] MEDS: PROTONIX INJ 40 MG VIAL IVP SCH (21:00)
[2020-01-05] MEDS: MYSOLINE PO SCH (21:00)
[2020-01-06] MEDS: VALIUM PO SCH ×2 (06:03→15:05)
[2020-01-06] MEDS: NS 1000 ML 1,000 ML IV SCH (06:03)
[2020-01-06 06:32] LABS: BASOPHILS # (AUTO) 0.1 X10^3/uL (0.0-0.1); BASOPHILS % (AUTO) 0.8 % (0.2-1.0); EOSINOPHILS % (AUTO) 0.2 % (0.9-2.9); HEMATOCRIT 41.2 % (36.0-47.0); HEMOGLOBIN 13.3 g/dL (12.0-16.0); LYMPHOCYTES # (AUTO) 3.7 X10^3/uL (1.3-2.9); LYMPHOCYTES % (AUTO) 23.3 % (21.0-51.0); MEAN CORPUSCULAR HEMOGLOBIN 28.2 pg (27.0-34.0); MEAN CORPUSCULAR HGB CONC 32.4 g/dL (33.0-35.0); MEAN CORPUSCULAR VOLUME 87.1 fL (80.0-100.0); MEAN PLATELET VOLUME 8.4 fL (7.4-11.0); MONOCYTES # (AUTO) 1.2 x10^3/uL (0.3-0.8); MONOCYTES % (AUTO) 7.7 % (0.0-13.0); NEUTROPHILS # (AUTO) 10.8 x10^3/uL (2.2-4.8); PLATELET COUNT 371 X10^3/uL (150.0-450.0); RED BLOOD COUNT 4.74 X10^6/uL (3.5-5.4); RED CELL DISTRIBUTION WIDTH 13.4 % (11.6-16.5); WHITE BLOOD COUNT 15.9 X10^3/uL (3.6-10.0)
[2020-01-06 06:55] LABS: ALANINE AMINOTRANSFERASE 28 Units/L (12-78); ALBUMIN 3.5 g/dL (3.4-5.0); ALKALINE PHOSPHATASE 110 Units/L (46-116); ASPARTATE AMINO TRANSFERASE 27 Units/L (15-37); BLOOD UREA NITROGEN 21 mg/dL (7-18); CALCIUM 9.4 mg/dL (8.5-10.1); CARBON DIOXIDE 24.1 mmol/L (21-32); CHLORIDE 101 mmol/L (98-107); COR NA(FOR HYPERGLY) 137 mmol/L (136-145); CREATININE 1.24 mg/dL (0.55-1.02); SODIUM 135 mmol/L (136-145); TOTAL PROTEIN 7.2 g/dL (6.4-8.2); eGFR NON BLACK RACES 45 (>60)
[2020-01-06] MEDS ORDERED: CYMBALTA PO SCH (09:00)
[2020-01-06] MEDS ORDERED: PROTONIX INJ 40 MG VIAL IVP SCH (09:00)
[2020-01-06] MEDS ORDERED: PATIENT'S HOME MEDICATION (Levocetirizine 5 MG) PO SCH (09:00)
[2020-01-06] MEDS: CYMBALTA PO SCH (09:08)
[2020-01-06] MEDS: CARDIZEM CD 180 MG 24-HR PO SCH (09:08)
[2020-01-06] MEDS: SYNTHROID 125 mcg TAB PO SCH (09:09)
[2020-01-06] MEDS: DESYREL PO SCH (09:09)
[2020-01-06] MEDS: MYSOLINE PO SCH ×2 (09:09→21:07)
[2020-01-06] MEDS: ZETIA TAB 10 MG PO SCH (09:09)
[2020-01-06] MEDS: REQUIP PO SCH (09:09)
[2020-01-06] MEDS: TOPROL XL PO SCH (09:09)
[2020-01-06] MEDS: NORVASC TAB 5 MG PO SCH (09:09)
[2020-01-06] MEDS: PROTONIX INJ 40 MG VIAL IVP SCH ×2 (09:09→21:07)
[2020-01-06] MEDS: LOVAZA PO SCH (09:17)
[2020-01-06] MEDS: ROCEPHIN VIAL 1 GRAM 1 G in NS 100 ML IV + SPIKE MINIBAG* 100 ML IV SCH (18:37)
[2020-01-07] MEDS: VALIUM PO SCH ×2 (05:25→05:43)
[2020-01-07 06:24] LABS: BASOPHILS # (AUTO) 0.1 X10^3/uL (0.0-0.1); BASOPHILS % (AUTO) 0.6 % (0.2-1.0); EOSINOPHILS # (AUTO) 0.4 x10^3/uL (0.0-0.2); HEMATOCRIT 38.7 % (36.0-47.0); HEMOGLOBIN 12.5 g/dL (12.0-16.0); LYMPHOCYTES # (AUTO) 3.4 X10^3/uL (1.3-2.9); MEAN CORPUSCULAR HEMOGLOBIN 28.2 pg (27.0-34.0); MEAN CORPUSCULAR HGB CONC 32.3 g/dL (33.0-35.0); MEAN CORPUSCULAR VOLUME 87.3 fL (80.0-100.0); MEAN PLATELET VOLUME 8.6 fL (7.4-11.0); MONOCYTES # (AUTO) 0.8 x10^3/uL (0.3-0.8); MONOCYTES % (AUTO) 6.5 % (0.0-13.0); NEUTROPHILS % (AUTO) 62.9 % (42.0-75.0); PLATELET COUNT 317 X10^3/uL (150.0-450.0); RED BLOOD COUNT 4.43 X10^6/uL (3.5-5.4); RED CELL DISTRIBUTION WIDTH 13.8 % (11.6-16.5); WHITE BLOOD COUNT 12.7 X10^3/uL (3.6-10.0)
[2020-01-07 06:33] LABS: ALANINE AMINOTRANSFERASE 29 Units/L (12-78); ALBUMIN 2.9 g/dL (3.4-5.0); ALKALINE PHOSPHATASE 97 Units/L (46-116); ASPARTATE AMINO TRANSFERASE 32 Units/L (15-37); BLOOD UREA NITROGEN 20 mg/dL (7-18); CALCIUM 8.7 mg/dL (8.5-10.1); CARBON DIOXIDE 22.4 mmol/L (21-32); CHLORIDE 102 mmol/L (98-107); COR CA(FOR HYPOALB) 9.6 mg/dL (8.5-10.1); COR NA(FOR HYPERGLY) 136 mmol/L (136-145); CREATININE 0.94 mg/dL (0.55-1.02); SODIUM 133 mmol/L (136-145); TOTAL PROTEIN 6.4 g/dL (6.4-8.2); eGFR NON BLACK RACES > 60 (>60)
[2020-01-07] MEDS: NS 1000 ML 1,000 ML IV SCH ×3 (06:58→09:50)
[2020-01-07] MEDS: ROCEPHIN VIAL 1 GRAM 1 G in NS 100 ML IV + SPIKE MINIBAG* 100 ML IV SCH (09:39)
[2020-01-07] MEDS: PROTONIX INJ 40 MG VIAL IVP SCH (09:39)
[2020-01-07] MEDS: TOPROL XL PO SCH (09:41)
[2020-01-07] MEDS: NORVASC TAB 5 MG PO SCH (09:42)
[2020-01-07] MEDS: CYMBALTA PO SCH (09:42)
[2020-01-07] MEDS: CARDIZEM CD 180 MG 24-HR PO SCH (09:42)
[2020-01-07] MEDS: REQUIP PO SCH (09:42)
[2020-01-07] MEDS: MYSOLINE PO SCH (09:42)
[2020-01-07] MEDS: SYNTHROID 125 mcg TAB PO SCH (09:43)
[2020-01-07] MEDS: ZETIA TAB 10 MG PO SCH (09:43)
[2020-01-07] MEDS: DESYREL PO SCH (09:44)
[2020-01-07] MEDS: LOVAZA PO SCH (09:45)
[2020-01-07 15:22] VITALS: BP 180/78
== END 2020-01-07 13:30 | disposition home or self-care (01) | DRG 392 ==
LOC: ER 05:04 → MED/SURG 10:56
PROVIDERS: ADMIT Internal Medicine; ATTEND Internal Medicine
DX: K50.90 Crohn's disease, unspecified, without complications; R07.81 Pleurodynia; E11.8 Type 2 diabetes mellitus with unspecified complications; I16.0 Hypertensive urgency; R11.2 Nausea with vomiting, unspecified; N28.9 Disorder of kidney and ureter, unspecified; E87.5 Hyperkalemia; R06.02 Shortness of breath; Z11.59 Encounter for screening for other viral diseases; E83.42 Hypomagnesemia; E87.8 Other disorders of electrolyte and fluid balance, not elsewhere classified; K52.9 Noninfective gastroenteritis and colitis, unspecified; N39.0 Urinary tract infection, site not specified; R10.9 Unspecified abdominal pain
CPT/HCPCS: 36415; 71010; 71045; 74176; 80053; 81001; 82009; 82150; 82550; 82553; 83690; 83735; 84484; 85025; 87040; 87086; 87400; 87635; 87804; 93005; 96365; 96367; 96372; 96374; 96375; 97161; 99284; A4222; C9113; J0360; J0696; J1885; J1940; J2270; J2405; J2550; J2765; J3475; J3490; J7030; J7040; J7050; S0119; S0181

== ENCOUNTER 2020-02-07 19:23 | Inpatient (IN) ==
[2020-02-07] MEDS ORDERED: NS 500 ML IV 500 ML IV ONE ×4 (20:01→21:26)
--- NOTE | 2020-02-07 20:01 | DR.GENAD ---
HPI Time Seen Time Seen by Provider: 02/07/20 19:38 Complaint/Symptoms Chief Complaint Doctors Comments: Chronic diarrhea for months and recently vomiting. Lethargic in ER, Hx Fibromyalgia Source History Provided: Family Member Mode of Arrival Mode of Arrival: EMS Timing Onset of Chief Complaint: 02/04/20 Came on: Gradually Duration Duration: Constant How lon Duration: Days Location Location: generalized Severity Severity: Moderate Modifying Factors Worsens:: unknown Associated Signs and Symptoms Associated Signs and Symptoms: lethargic PMH PMH Past Medical History: Anemia, Arthritis, COPD, Coronary Artery Disease, Diabetes, Dyslipidemia, GERD, Hypertension, Hypothyroidism and Renal Disease Past Surgical History: Yes Surgical History: Cholecystectomy, Hysterectomy, Mastectomy and Tonsillectomy Family History Family Medical History: Diabetes Mellitus, Cancer and [place] Social History Do you use any recreational Drugs:: No ROS Review of Systems Constitutional: Weakness Unable to Obtain Due To: Altered mental status (lethargic possible drug side effect.) PE Vital Signs Vitals: Temperature 98.1 F Pulse Rate 102 Respiratory Rate 18 Blood Pressure [Right Arm] 180/78 Blood Pressure 118/61 O2 Sat by Pulse Oximetry 95 General Limitations: Altered Mental Status General Appearance: Obtunded Head Head Exam: Normal Inspection, Atraumatic and Normocephalic Eyes Eye exam: Miosis ENT ENT Exam: Normal Exam and Normal Oropharynx External Ear Exam: Normal External Inspection Nose Exam: Normal Nose Exam Mouth Exam: Normal Inspection Throat Exam: Normal Inspection Neck Neck Exam: Normal Inspection, Full ROM and Trachea Midline Chest Chest Inspection: Normal Inspection Respiratory Respiratory Exam: Normal Lung Sounds Bilat; negative Accessory Muscle Use Respiratory Exam: Bilateral: Clear to Auscultation Cardiovascular Cardiovascular Exam: Tachycardia Abdominal Exam Abdominal Exam: Normal Inspection, Normal Bowel Sounds and Soft Extremities Extremities Exam: Normal Inspection and Full ROM Back Back Exam: Normal Inspection and Full ROM Neurologic Neurological Exam: Other (lethargic arousable ) Psychiatric Psychiatric Exam: Flat Affect Skin Skin Exam: Normal Color COURSE Consultation Called: 22:01 Call Returned: 22:01 Consultation Comments: case discussed with DR. Zhang admit for IVF and antibiotics. ROR Labs Reviewed Result Diagrams: 02/07/20 20:07 02/07/20 20:07 Laboratory: WBC 17.9 X10^3/uL (3.6-10.0) H 02/07/20 20:07 RBC 5.42 X10^6/uL (3.5-5.4) H 02/07/20 20:07 Hgb 15.4 g/dL (12.0-16.0) 02/07/20 20:07 Hct 47.0 % (36.0-47.0) 02/07/20 20:07 MCV 86.7 fL (80.0-100.0) 02/07/20 20:07 MCH 28.3 pg (27.0-34.0) 02/07/20 20:07 MCHC 32.7 g/dL (33.0-35.0) L 02/07/20 20:07 RDW 14.0 % (11.6-16.5) 02/07/20 20:07 Plt Count 320 X10^3/uL (150.0-450.0) 02/07/20 20:07 Plt Count Comment Adequate (ADEQUATE) 02/07/20 20:07 MPV 9.5 fL (7.4-11.0) 02/07/20 20:07 Neut % (Auto) 67.1 % (42.0-75.0) 02/07/20 20:07 Lymph % (Auto) 23.8 % (21.0-51.0) 02/07/20 20:07 Hale % (Auto) 8.6 % (0.0-13.0) 02/07/20 20:07 Eos % (Auto) 0.2 % (0.9-2.9) L 02/07/20 20:07 Baso % (Auto) 0.3 % (0.2-1.0) 02/07/20 20:07 Neut # (Auto) 12.0 x10^3/uL (2.2-4.8) H 02/07/20 20:07 Lymph # (Auto) 4.3 X10^3/uL (1.3-2.9) H 02/07/20 20:07 Hale # (Auto) 1.5 x10^3/uL (0.3-0.8) H 02/07/20 20:07 Eos # (Auto) 0.0 x10^3/uL (0.0-0.2) 02/07/20 20:07 Baso # (Auto) 0.1 X10^3/uL (0.0-0.1) 02/07/20 20:07 Absolute Nucleated RBC 0.2 /100WBC 02/07/20 20:07 Total Counted 100 02/07/20 20:07 Neutrophils % (Manual) 69 % (39-76) 02/07/20 20:07 Band Neutrophils % 8 % (0-10) 02/07/20 20:07 Lymphocytes % (Manual) 20 % (13-43) 02/07/20 20:07 Monocytes % (Manual) 3 % (4-9) L 02/07/20 20:07 Plt Morphology Comment Normal (NORMAL) 02/07/20 20:07 RBC Morphology Normal (NORMAL) 02/07/20 20:07 Sample Site Lbra 02/07/20 21:22 ABG pH 7.470 (7.35-7.45) H 02/07/20 21:22 ABG pCO2 45.0 mmHg (35.0-45.0) 02/07/20 21:22 ABG pO2 89.0 mmHg (80.0-100.0) 02/07/20 21:22 ABG HCO3 32.8 mmol/L (22-26) H* 02/07/20 21:22 ABG O2 Saturation 97.0 % (90-100) 02/07/20 21:22 ABG Base Excess 8.1 mmol/L (-2.0-2.0) H 02/07/20 21:22 Elian Test Na 02/07/20 21:22 A-a Gradient 26.0 mmHg 02/07/20 21:22 FiO2 24.0 02/07/20 21:22 Blood Gas Comments Hawa abg well-mtf 02/07/20 21:22 Sodium 133 mmol/L (136-145) L 02/07/20 20:07 Corrected Sodium 138 mmol/L (136-145) 02/07/20 20:07 Potassium 2.9 mmol/L (3.5-5.1) L* 02/07/20 20:07 Chloride 92 mmol/L (98-107) L 02/07/20 20:07 Carbon Dioxide 31.1 mmol/L (21-32) 02/07/20 20:07 BUN 46 mg/dL (7-18) H 02/07/20 20:07 Creatinine 2.86 mg/dL (0.55-1.02) H 02/07/20 20:07 Est GFR (MDRD) Af Amer 21 (>60) L 02/07/20 20:07 Est GFR (MDRD) Non-Af 17 (>60) L 02/07/20 20:07 Glucose 305 mg/dL (65-99) H 02/07/20 20:07 POC Glucose (mg/dL) 286 mg/dL (65-99) H 02/07/20 19:47 Lactic Acid 2.5 mmol/L (0.4-2.0) H 02/07/20 20:40 Calcium 9.7 mg/dL (8.5-10.1) 02/07/20 20:07 Corrected Calcium TNP 02/07/20 20:07 Total Bilirubin 0.60 mg/dL (0.2-1.0) 02/07/20 20:07 AST 35 Units/L (15-37) 02/07/20 20:07 ALT 26 Units/L (12-78) 02/07/20 20:07 Alkaline Phosphatase 141 Units/L (46-116) H 02/07/20 20:07 Creatine Kinase 214 Units/L (26-192) H 02/07/20 20:07 CK-MB (CK-2) 6.0 ng/mL (0-4.0) H* 02/07/20 20:07 CK/CKMB % Calc 2.8 % (<4) 02/07/20 20:07 Troponin I < 0.02 ng/mL (0-1.5) 02/07/20 20:07 Total Protein 7.2 g/dL (6.4-8.2) 02/07/20 20:07 Albumin 3.6 g/dL (3.4-5.0) 02/07/20 20:07 Globulin 3.6 g/dL (2.5-4.5) 02/07/20 20:07 Albumin/Globulin Ratio 1.0 Ratio (1.1-2.1) L 02/07/20 20:07 Acetone, Semi-Quant Negative (NEGATIVE) 02/07/20 20:07 Opioid Opioid Risk Tool Age (Carlos Manuel box if 16-45): No History of Preadolescent Sexual Abuse: No Total: 0 Total Score Risk Category: Low Risk Copyright: Mickey JOHNSON predicting aberrant behaviors Diagnosis Discharge Problem: Gastroenteritis, Acute hypokalemia, Acute dehydration Instructions Forms: Excuse From Work Precautions for COVID19 Patient Portal Social Distancing
[2020-02-07] MEDS ORDERED: NARCAN INJ IVP ONE (20:03)
[2020-02-07] MEDS ORDERED: NARCAN INJ ONE (20:06)
[2020-02-07 20:23] LABS: BASOPHILS # (AUTO) 0.1 X10^3/uL (0.0-0.1); BASOPHILS % (AUTO) 0.3 % (0.2-1.0); EOSINOPHILS % (AUTO) 0.2 % (0.9-2.9); HEMOGLOBIN 15.4 g/dL (12.0-16.0); LYMPHOCYTES # (AUTO) 4.3 X10^3/uL (1.3-2.9); LYMPHOCYTES % (AUTO) 23.8 % (21.0-51.0); MEAN CORPUSCULAR HEMOGLOBIN 28.3 pg (27.0-34.0); MEAN CORPUSCULAR HGB CONC 32.7 g/dL (33.0-35.0); MEAN CORPUSCULAR VOLUME 86.7 fL (80.0-100.0); MEAN PLATELET VOLUME 9.5 fL (7.4-11.0); MONOCYTES # (AUTO) 1.5 x10^3/uL (0.3-0.8); MONOCYTES % (AUTO) 8.6 % (0.0-13.0); NEUTROPHILS % (AUTO) 67.1 % (42.0-75.0); PLATELET COUNT 320 X10^3/uL (150.0-450.0); RED BLOOD COUNT 5.42 X10^6/uL (3.5-5.4); WHITE BLOOD COUNT 17.9 X10^3/uL (3.6-10.0)
[2020-02-07 20:35] LABS: BAND NEUTROPHILS % 8 % (0-10)
[2020-02-07 20:36] LABS: PLATELET MORPHOLOGY COMMENT NORMAL (NORMAL)
[2020-02-07] MEDS ORDERED: XOPENEX 1.25 MG/3 ML NEBULE NEB ONE ×2 (20:38→20:55)
[2020-02-07 21:00] LABS: ALANINE AMINOTRANSFERASE 26 Units/L (12-78); ALBUMIN 3.6 g/dL (3.4-5.0); ALKALINE PHOSPHATASE 141 Units/L (46-116); ASPARTATE AMINO TRANSFERASE 35 Units/L (15-37); BLOOD UREA NITROGEN 46 mg/dL (7-18); CALCIUM 9.7 mg/dL (8.5-10.1); CARBON DIOXIDE 31.1 mmol/L (21-32); CHLORIDE 92 mmol/L (98-107); CKMB % 2.8 % (<4); COR NA(FOR HYPERGLY) 138 mmol/L (136-145); CREATINE KINASE 214 Units/L (26-192); CREATININE 2.86 mg/dL (0.55-1.02); SODIUM 133 mmol/L (136-145); TOTAL PROTEIN 7.2 g/dL (6.4-8.2); TROPONIN I < 0.02 ng/mL (0-1.5); eGFR NON BLACK RACES 17 (>60)
--- NOTE | 2020-02-07 21:22 | RAD ---
HISTORYSEPSISSTUDYCHEST, 1 [id number]/28/2020FINDINGSThe heart is unchanged. The pulmonary vessels are normal. The lungs are mildly hyperinflated and emphysematous. There are mild chronic interstitial changes throughout. No consolidation or effusion is seen.IMPRESSIONStable chronic changes with no acute abnormality seenElectronically signed by: JAMEY PORTILLO (Feb 07, 2020 21:21:07)
[2020-02-07 21:28] LABS: ABG BASE EXCESS 8.1 mmol/L (-2.0-2.0); ABG HCO3 32.8 mmol/L (22-26)
[2020-02-07] MEDS ORDERED: FLAGYL IV PREMIX 500 MG BAG 500 MG/100 ML BAG IV ONE (22:07)
[2020-02-07] MEDS ORDERED: HumuLIN R ONE (22:08)
[2020-02-07] MEDS: FLAGYL IV PREMIX 500 MG BAG 500 MG/100 ML BAG IV SCH (22:13)
[2020-02-07] MEDS: HumuLIN R SUBCUT PRN (22:31)
[2020-02-07] MEDS ORDERED: NS 1000 ML 1,000 ML ONE (23:20)
[2020-02-07] MEDS: NS 1000 ML 1,000 ML IV SCH (23:26)
[2020-02-08 01:31] LABS: BILIRUBIN,URINE 2+ (NEGATIVE); BLOOD/HEMOGLOBIN,URINE 1+ (NEGATIVE); GLUCOSE, URINE 1+ (NEGATIVE); KETONES,URINE 1+ (NEGATIVE); LEUKOCYTE ESTERASE ,URINE 1+ (NEGATIVE); NITRITES,URINE NEGATIVE (NEGATIVE); PROTEIN,URINE 3+ (NEGATIVE); UROBILINOGEN,URINE 1+ (NORMAL)
[2020-02-08 01:40] LABS: APPEARANCE,URINE CLEAR (CLEAR); COLOR,URINE DARK YELLOW (YELLOW)
[2020-02-08 01:41] LABS: AMORPHOUS SEDIMENT,UR 2+ /HPF (NEGATIVE); BACTERIA,URINE NEGATIVE /HPF (NEGATIVE); FINE GRANULAR CASTS,URINE FEW /LPF (NEGATIVE); HYALINE CASTS, URINE MODERATE /LPF (NEGATIVE); RBC,URINE 0-2 /HPF (0-3); RENAL EPITHELIAL CELLS,URINE FEW /HPF (NEGATIVE); SQUAMOUS EPITHELIAL CELL,UR RARE /HPF (NEGATIVE)
[2020-02-08] MEDS ORDERED: FLAGYL IV PREMIX 500 MG BAG 500 MG/100 ML BAG IV ONE (02:44)
[2020-02-08] MEDS: FLAGYL IV PREMIX 500 MG BAG 500 MG/100 ML BAG IV SCH ×3 (02:47→17:10)
[2020-02-08] MEDS ORDERED: POTASSIUM CHLORIDE LIQ 20 MEQ UDC PO PRN (02:50)
[2020-02-08] MEDS ORDERED: K-RIDER 10 MEQ/NS 100 ML 10 MEQ/100 ML BAG IV PRN (02:50)
[2020-02-08] MEDS ORDERED: MICRO K EXTEN CAP 10 MEQ PO PRN (02:50)
[2020-02-08] MEDS ORDERED: POTASSIUM CHL 40 MEQ/NS 0.45% 500 ML IV PRN (02:50)
[2020-02-08] MEDS ORDERED: KLOR-CON PO PRN (02:50)
[2020-02-08] MEDS ORDERED: POTASSIUM CHL 60 MEQ/NS 0.45% 500 ML IV PRN (02:50)
[2020-02-08] MEDS ORDERED: K-DUR TAB 20 MEQ PO ONE (03:10)
[2020-02-08] MEDS: K-DUR TAB 20 MEQ PO PRN (03:16)
[2020-02-08] MEDS ORDERED: MAGNESIUM SULFATE 1 GRAM/100 mL PREMIX 4 G/400 ML BAG IV ONE (03:48)
[2020-02-08] MEDS: MAGNESIUM SULFATE 1 GRAM/100 mL PREMIX 1 GM/100 ML BAG IV PRN ×4 (03:50→06:50)
[2020-02-08 06:11] LABS: BASOPHILS # (AUTO) 0.3 X10^3/uL (0.0-0.1); BASOPHILS % (AUTO) 1.7 % (0.2-1.0); EOSINOPHILS # (AUTO) 0.1 x10^3/uL (0.0-0.2); EOSINOPHILS % (AUTO) 0.8 % (0.9-2.9); HEMATOCRIT 42.8 % (36.0-47.0); HEMOGLOBIN 14.2 g/dL (12.0-16.0); LYMPHOCYTES # (AUTO) 6.9 X10^3/uL (1.3-2.9); LYMPHOCYTES % (AUTO) 38.8 % (21.0-51.0); MEAN CORPUSCULAR HEMOGLOBIN 28.5 pg (27.0-34.0); MEAN CORPUSCULAR HGB CONC 33.1 g/dL (33.0-35.0); MEAN PLATELET VOLUME 9.6 fL (7.4-11.0); MONOCYTES # (AUTO) 1.4 x10^3/uL (0.3-0.8); MONOCYTES % (AUTO) 8.2 % (0.0-13.0); NEUTROPHILS # (AUTO) 8.9 x10^3/uL (2.2-4.8); NEUTROPHILS % (AUTO) 50.5 % (42.0-75.0); PLATELET COUNT 280 X10^3/uL (150.0-450.0); RED BLOOD COUNT 4.98 X10^6/uL (3.5-5.4); WHITE BLOOD COUNT 17.7 X10^3/uL (3.6-10.0)
[2020-02-08 06:45] LABS: ALBUMIN 3.3 g/dL (3.4-5.0); CALCIUM 8.6 mg/dL (8.5-10.1); CARBON DIOXIDE 24.4 mmol/L (21-32); COR CA(FOR HYPOALB) 9.2 mg/dL (8.5-10.1); CREATININE 2.31 mg/dL (0.55-1.02); TOTAL PROTEIN 6.5 g/dL (6.4-8.2)
[2020-02-08] MEDS ORDERED: HumuLIN R ONE (06:57)
[2020-02-08] MEDS: HumuLIN R SUBCUT PRN ×4 (07:00→20:32)
[2020-02-08] MEDS ORDERED: ESZOPICLONE 2 MG PO PRN (09:18)
[2020-02-08] MEDS ORDERED: DIAZEPAM 2 MG PO PRN (09:18)
[2020-02-08] MEDS ORDERED: ULTRAM PO PRN (09:18)
[2020-02-08] MEDS ORDERED: ZANAFLEX PO PRN (09:18)
[2020-02-08] MEDS ORDERED: ZOFRAN INJ 4 MG VIAL IVP PRN (09:22)
[2020-02-08] MEDS: NS 1000 ML 1,000 ML IV SCH ×3 (09:25→23:48)
[2020-02-08] MEDS ORDERED: PEPCID 20 MG IV PREMIX* 20 MG/50 ML BAG IV ONE (09:49)
[2020-02-08] MEDS: CYMBALTA PO SCH (09:51)
[2020-02-08] MEDS: MYSOLINE PO SCH ×2 (09:51→20:29)
[2020-02-08] MEDS: PEPCID 20 MG IV PREMIX* 20 MG/50 ML BAG IV SCH ×2 (10:57→20:31)
[2020-02-08] MEDS: ZETIA TAB 10 MG PO SCH (10:58)
[2020-02-08] MEDS: PROTONIX INJ 40 MG VIAL IVP SCH ×2 (10:58→20:31)
[2020-02-08] MEDS: SYNTHROID 125 mcg TAB PO SCH (10:58)
[2020-02-08] MEDS ORDERED: DESYREL PO ONE (19:44)
[2020-02-08] MEDS ORDERED: REQUIP PO ONE (19:45)
[2020-02-08] MEDS: DESYREL PO SCH (20:29)
[2020-02-08] MEDS: INSULIN DEGLUDEC 40 UNIT SC SCH (20:30)
[2020-02-08] MEDS: REQUIP PO SCH (20:30)
--- NOTE | 2020-02-08 22:22 | DR.H&P ---
H&P - History & Physical for Day of: H&P Date: 02/07/20 - Chief Complaint Chief Complaint: DIARRHEA, WEAKNESS, VOMITING, LETHARGY - History of Present Illness History of Present Illness: IS A 74 YEAR OLD PATIENT OF [facility] WHO PRESENTED TO THE ER WITH HER FAMILY MEMBER REPORTING THAT SHE HAS HAD CHRONIC DIARRHEA FOR SEVERAL MONTHS, BUT THAT IT HAS RECENTLY GOTTEN WORSE. THEY ALSO REPORT THAT SHE STARTED VOMITING ONE DAY PRIOR. ON ARRIVAL TO THE ER, SHE WAS NOTED TO BE LETHARGIC. FAMILY REPORTS THAT THEY BELIEVE SHE MAY HAVE TAKEN TO MUCH OF HER VALIUM. HER PMH INCLUDES: ANEMIA, ARTHRITIS, COPD, CAD, DIAABETES, DYSLIPIDEMIA, GERD, HTN, HYPOTHYROIDISM, RENAL DISEASE, CHOLECYSTECTOMY, HYSTERECTOMY, MASTECTOMY, AND TONSILLECTOMY. ON ARRIVAL TO THE ER, VITALS WERE 98.1-119-18-90%NC-120/72. LABS WERE OBTAINED. ABNORMAL LAB VALUES INCLUDE THE FOLLOWING: WBC 17.9, RBC 5.42, SODIUM 133, POTASSIUM 2.9, CHLORIDE 92, BUN 46, CREATININE 2.86, GLUCOSE 305, MAGNESIUM 1.4, ALK PHOS 141, CREATINE KINASE 214, CK-MB 6.0. A URINALYSIS WAS OBTAINED AND REVEALED: WBC 3-5, RBC 0-2, LEUKOCYTES 1+, BACTERIA NEGATIVE, PROTEIN 3+. URINE DRUG SCREEN POSITIVE FOR BENZODIAZEPINES AND BARBITURATES. AN ABG WAS OBTAINED AND REVEALED: PH 7.470, PC02 45.0, P02 89.0, HC03 32.8, 02 SATURATION 97.0, BASE EXCESS 8.1. A CHEST XRAY WAS OBTAINED AND REVEALED: Stable chronic changes with no acute abnormality seen. SHE WAS GIVEN A NORMAL SALINE BOLUS, NARCAN 0.4MG IV X 1, XOPENEX NEB X 1, AND FLAGYL 500MG IV Q6H. SHE WAS ADMITTED FOR FURTHER EVALUATION AND TREATMENT OF GASTROENTERITIS, HYPOKALEMIA, DEHYDRATION. SHE WAS STARTED ON NORMAL SALINE AT 125 ML/HR, THE POTASSIUM AND MAGNESIUM PROTOCOLS, FLAGYL 500MG IV Q8H, PEPCID 20MG IV Q12H, PROTONIX 40MG IV Q4H PRN, HUMULIN R SLIDING SCALE, ZOFRAN 4MG IV Q4H PRN NAUSEA, AND HER HOME MEDICATIONS WERE RESUMED WITH THE EXCEPTION OF HER BLOOD PRESSURE MEDICATIONS. WE WILL OBTAIN STOOL STUDIES. OTHERWISE, WE WILL FOLLOW UP WITH AM LABS AND CONTINUE TO MONITOR. - Past Medical History Past Medical History: Coronary Artery Disease, Hypertension, Dyslipidemia, Diabetes, Renal Disease, Hypothyroidism, Anemia, COPD, GERD, Arthritis Additional Medical History: Diabetic Neuropathy, Chronic Back Pain, Fibrocystic Breast Disease, Crohns Disease, Fibromyalgia, Mitral Valve Leak, Valvular Heart Disease, Bronchitits, Uterine Fibroids, Diarrhea, Fibromyalgia, Restless Leg Syndrome, Parathyroid Disease, Previous Blood Transfusion - Past Surgical History Surgical History: Cholecystectomy, Hysterectomy, Mastectomy, Tonsillectomy Additional Surgical History: Bilateral Mastectomy due to stones - Family History Family Medical History: Diabetes Mellitus, Cancer, [place] - Social History Does patient currently use any type of tobacco product: No Have you used tobacco products in the last 12 months: No Type of Tobacco Use: None Does any household member use tobacco: No Alcohol Use: None Drug Use: None - Medications Home Medications: acetaminophen [From Lortab] Allergy (Verified 07/28/18 20:35) aluminum hydroxide [From Ascriptin] Allergy (Verified 07/28/18 20:35) aripiprazole [From Abilify] Allergy (Verified 07/28/18 20:35) aspirin [From Ascriptin] Allergy (Verified 07/28/18 20:35) bee pollen Allergy (Verified 07/28/18 20:35) calcium carbonate [From Ascriptin] Allergy (Verified 07/28/18 20:35) coconut oil Allergy (Verified 07/28/18 20:35) codeine Allergy (Verified 07/28/18 20:35) hydrocodone [From Lortab] Allergy (Verified 07/28/18 20:35) latex Allergy (Verified 07/28/18 20:35) levetiracetam [From Keppra] Allergy (Verified 07/28/18 20:35) metformin Allergy (Verified 07/28/18 20:35) niacin Allergy (Verified 07/28/18 20:35) oxycodone [From Percocet] Allergy (Verified 07/28/18 20:35) pregabalin [From Lyrica] Allergy (Verified 07/28/18 20:35) propoxyphene [From Darvon-N] Allergy (Verified 07/28/18 20:35) propranolol [From Inderal LA] Allergy (Verified 07/28/18 20:35) red dye Allergy (Verified 07/28/18 20:35) rosuvastatin [From Crestor] Allergy (Verified 07/28/18 20:35) IV DYE Allergy (Uncoded 01/05/20 07:23) CONTINUE taking the following medications diazepam 2 mg PO TID PRN 02/08/20 [History] duloxetine 30 mg PO DAILY 02/08/20 [History] metoclopramide HCl 5 mg PO QID PRN 02/08/20 [History] - Review of Systems Constitutional: Weakness Eyes: No Symptoms Reported ENT: No Symptoms Reported Respiratory: No Symptoms Reported Cardiovascular: No Symptoms Reported Gastrointestinal: Nausea, Vomiting, Diarrhea Musculoskeletal: No Symptoms Reported Skin: No Symptoms Reported Neurological: See HPI, Weakness, Confusion - Physical Exam Vital Signs: Temperature 97.9 F Pulse Rate [Left] 103 Pulse Rate 98 Respiratory Rate 20 Blood Pressure [Left Arm] 151/81 Blood Pressure [Right Arm] 149/70 Blood Pressure 134/60 O2 Sat by Pulse Oximetry 97 Oriented: Not Oriented Eyes: Normal Ear: Normal Nose: Normal Throat: Normal Respiratory: Diminished Throughout Cardiovascular: Tachycardia : Normal Auscultation: Bowel Sounds: Normal Palpation: Normal Tenderness: Normal Skin: Decreased Turgur Musculoskeletal: Normal Psychiatric: Normal Mood Description: Flat Affect: Flat Speech Pattern: Unclear - Assessment/Plan (1) Gastroenteritis Status: Acute Plan: NORMAL SALINE AT 125 ML/HR, THE POTASSIUM AND MAGNESIUM PROTOCOLS, FLAGYL 500MG IV Q8H, PEPCID 20MG IV Q12H, PROTONIX 40MG IV Q4H PRN, HUMULIN R SLIDING SCALE, ZOFRAN 4MG IV Q4H PRN NAUSEA, AND HER HOME MEDICATIONS WERE RESUMED WITH THE EXCEPTION OF HER BLOOD PRESSURE MEDICATIONS. (2) Acute dehydration Status: Acute (3) Acute hypokalemia Status: Acute - Allergies Allergies/Adverse Reactions: Allergies Allergy/AdvReac Type Severity Reaction Status Date / Time acetaminophen [From Lortab] Allergy Verified 07/28/18 20:35 aluminum hydroxide Allergy Verified 07/28/18 20:35 [From Ascriptin] aripiprazole [From Abilify] Allergy Verified 07/28/18 20:35 aspirin [From Ascriptin] Allergy Verified 07/28/18 20:35 bee pollen Allergy Verified 07/28/18 20:35 calcium carbonate Allergy Verified 07/28/18 20:35 [From Ascriptin] coconut oil Allergy Verified 07/28/18 20:35 codeine Allergy Verified 07/28/18 20:35 hydrocodone [From Lortab] Allergy Verified 07/28/18 20:35 latex Allergy Verified 07/28/18 20:35 levetiracetam [From Keppra] Allergy Verified 07/28/18 20:35 metformin Allergy Verified 07/28/18 20:35 niacin Allergy Verified 07/28/18 20:35 oxycodone [From Percocet] Allergy Verified 07/28/18 20:35 pregabalin [From Lyrica] Allergy Verified 07/28/18 20:35 propoxyphene [From Darvon-N] Allergy Verified 07/28/18 20:35 propranolol [From Inderal LA] Allergy Verified 07/28/18 20:35 red dye Allergy Verified 07/28/18 20:35 rosuvastatin [From Crestor] Allergy Verified 07/28/18 20:35 IV DYE Allergy Uncoded 01/05/20 07:23
[2020-02-09] MEDS: FLAGYL IV PREMIX 500 MG BAG 500 MG/100 ML BAG IV SCH ×3 (04:00→17:08)
[2020-02-09 05:42] LABS: BASOPHILS # (AUTO) 0.1 X10^3/uL (0.0-0.1); BASOPHILS % (AUTO) 1.1 % (0.2-1.0); EOSINOPHILS # (AUTO) 0.3 x10^3/uL (0.0-0.2); HEMATOCRIT 36.6 % (36.0-47.0); LYMPHOCYTES # (AUTO) 3.8 X10^3/uL (1.3-2.9); LYMPHOCYTES % (AUTO) 34.3 % (21.0-51.0); MEAN CORPUSCULAR HEMOGLOBIN 28.6 pg (27.0-34.0); MEAN CORPUSCULAR HGB CONC 32.9 g/dL (33.0-35.0); MEAN CORPUSCULAR VOLUME 87.1 fL (80.0-100.0); MEAN PLATELET VOLUME 10.5 fL (7.4-11.0); MONOCYTES # (AUTO) 0.9 x10^3/uL (0.3-0.8); MONOCYTES % (AUTO) 7.7 % (0.0-13.0); NEUTROPHILS % (AUTO) 53.9 % (42.0-75.0); PLATELET COUNT 214 X10^3/uL (150.0-450.0); WHITE BLOOD COUNT 11.2 X10^3/uL (3.6-10.0)
[2020-02-09 05:58] LABS: ALBUMIN 2.7 g/dL (3.4-5.0); CALCIUM 7.3 mg/dL (8.5-10.1); CARBON DIOXIDE 25.4 mmol/L (21-32); COR CA(FOR HYPOALB) 8.3 mg/dL (8.5-10.1); CREATININE 1.15 mg/dL (0.55-1.02); MAGNESIUM 1.4 mg/dL (1.7-2.9); TOTAL PROTEIN 5.4 g/dL (6.4-8.2)
[2020-02-09] MEDS: SYNTHROID 125 mcg TAB PO SCH (06:12)
[2020-02-09 06:15] LABS: PLATELET MORPHOLOGY COMMENT NORMAL (NORMAL)
[2020-02-09] MEDS: K-DUR TAB 20 MEQ PO PRN ×2 (06:33→11:36)
[2020-02-09] MEDS: NS 1000 ML 1,000 ML IV SCH ×4 (07:00→23:44)
[2020-02-09] MEDS: MAGNESIUM SULFATE 1 GRAM/100 mL PREMIX 1 GM/100 ML BAG IV PRN ×4 (07:02→11:39)
[2020-02-09] MEDS: PROTONIX INJ 40 MG VIAL IVP SCH ×2 (08:10→20:32)
[2020-02-09] MEDS: ZyrTEC TAB 10 MG PO SCH (08:11)
[2020-02-09] MEDS: MYSOLINE PO SCH ×2 (08:12→20:36)
[2020-02-09] MEDS: ZETIA TAB 10 MG PO SCH (08:12)
[2020-02-09] MEDS: CYMBALTA PO SCH (08:12)
[2020-02-09] MEDS: PEPCID 20 MG IV PREMIX* 20 MG/50 ML BAG IV SCH ×2 (09:11→20:30)
[2020-02-09] MEDS: HumuLIN R SUBCUT PRN ×2 (10:49→16:10)
[2020-02-09 11:29] VITALS: BMI 29.0
[2020-02-09] MEDS: DESYREL PO SCH (20:34)
[2020-02-09] MEDS: REQUIP PO SCH (20:35)
[2020-02-09] MEDS: INSULIN DEGLUDEC 40 UNIT SC SCH (23:11)
[2020-02-10] MEDS: FLAGYL IV PREMIX 500 MG BAG 500 MG/100 ML BAG IV SCH ×2 (01:15→09:03)
[2020-02-10] MEDS: HumuLIN R SUBCUT PRN (06:07)
[2020-02-10 06:12] LABS: ALANINE AMINOTRANSFERASE 17 Units/L (12-78); ALBUMIN 2.8 g/dL (3.4-5.0); ALKALINE PHOSPHATASE 103 Units/L (46-116); ASPARTATE AMINO TRANSFERASE 23 Units/L (15-37); BLOOD UREA NITROGEN 10 mg/dL (7-18); CALCIUM 7.6 mg/dL (8.5-10.1); CHLORIDE 101 mmol/L (98-107); COR CA(FOR HYPOALB) 8.6 mg/dL (8.5-10.1); COR NA(FOR HYPERGLY) 138 mmol/L (136-145); MAGNESIUM 1.4 mg/dL (1.7-2.9); SODIUM 136 mmol/L (136-145); TOTAL PROTEIN 5.8 g/dL (6.4-8.2); eGFR NON BLACK RACES > 60 (>60)
[2020-02-10] MEDS: SYNTHROID 125 mcg TAB PO SCH (06:22)
[2020-02-10 06:30] LABS: BASOPHILS # (AUTO) 0.1 X10^3/uL (0.0-0.1); BASOPHILS % (AUTO) 0.6 % (0.2-1.0); EOSINOPHILS # (AUTO) 0.2 x10^3/uL (0.0-0.2); EOSINOPHILS % (AUTO) 1.7 % (0.9-2.9); HEMATOCRIT 38.9 % (36.0-47.0); HEMOGLOBIN 12.6 g/dL (12.0-16.0); LYMPHOCYTES # (AUTO) 3.6 X10^3/uL (1.3-2.9); LYMPHOCYTES % (AUTO) 28.8 % (21.0-51.0); MEAN CORPUSCULAR HEMOGLOBIN 28.4 pg (27.0-34.0); MEAN CORPUSCULAR HGB CONC 32.5 g/dL (33.0-35.0); MEAN CORPUSCULAR VOLUME 87.4 fL (80.0-100.0); MEAN PLATELET VOLUME 10.2 fL (7.4-11.0); MONOCYTES # (AUTO) 0.9 x10^3/uL (0.3-0.8); MONOCYTES % (AUTO) 7.6 % (0.0-13.0); NEUTROPHILS # (AUTO) 7.6 x10^3/uL (2.2-4.8); NEUTROPHILS % (AUTO) 61.3 % (42.0-75.0); PLATELET COUNT 235 X10^3/uL (150.0-450.0); RED BLOOD COUNT 4.45 X10^6/uL (3.5-5.4); RED CELL DISTRIBUTION WIDTH 13.9 % (11.6-16.5); WHITE BLOOD COUNT 12.4 X10^3/uL (3.6-10.0)
[2020-02-10] MEDS: ZETIA TAB 10 MG PO SCH (09:03)
[2020-02-10] MEDS: ZyrTEC TAB 10 MG PO SCH (09:03)
[2020-02-10] MEDS: PROTONIX INJ 40 MG VIAL IVP SCH (09:03)
[2020-02-10] MEDS: CYMBALTA PO SCH (09:03)
[2020-02-10] MEDS: PEPCID 20 MG IV PREMIX* 20 MG/50 ML BAG IV SCH (09:03)
[2020-02-10] MEDS: MYSOLINE PO SCH (09:04)
[2020-02-10] MEDS: NS 1000 ML 1,000 ML IV SCH (09:23)
[2020-02-10] MEDS ORDERED: LOVENOX INJ 40 MG SYR SC SCH (11:00)
[2020-02-10 13:20] VITALS: BP 140/78
== END 2020-02-10 14:55 | disposition home or self-care (01) | DRG 392 ==
LOC: ER 19:24 → OBS 22:24 → MED/SURG 02-08 09:00
PROVIDERS: ADMIT Internal Medicine; ATTEND Internal Medicine
DX: E86.0 Dehydration; E87.6 Hypokalemia; I25.10 Atherosclerotic heart disease of native coronary artery without angina pectoris; K52.89 Other specified noninfective gastroenteritis and colitis; E78.2 Mixed hyperlipidemia; Z11.59 Encounter for screening for other viral diseases; R26.89 Other abnormalities of gait and mobility; K21.9 Gastro-esophageal reflux disease without esophagitis; I10 Essential (primary) hypertension; E03.8 Other specified hypothyroidism; R53.1 Weakness; J44.9 Chronic obstructive pulmonary disease, unspecified
CPT/HCPCS: 36415; 36600; 71010; 71045; 80053; 80307; 81001; 82009; 82550; 82553; 82728; 82803; 83605; 83735; 84132; 84484; 85025; 86140; 87635; 94640; 94760; 96365; 96367; 96374; 96375; 97162; 99284; A4216; A4222; C9113; J1650; J1815; J2310; J3475; J7030; J7040; S0028; S0030

== ENCOUNTER 2021-04-29 10:41 | Observation (INO) ==
--- NOTE | 2021-04-29 13:42 | DR.H&P ---
H&P - History & Physical for Day of: H&P Date: 04/29/21 - Chief Complaint Chief Complaint: diarrhea, elevated potassium - History of Present Illness History of Present Illness: PT IS 75 WF DIRECT ADMIT FROM DR HITCHCOCK OFFICE WITH HYPERKALEMIA. PT OUTPT LABS K+6.9. PT REPORTS SHE HAS HAD TERRIBLE DIARRHEA AND NAUSEA. PT WAS TREATED WITH XIFAXIN AND ZOFRAN LAST WEEK WITHOUT IMPROVEMENT. PT HAD PMH OF DIABETES, CROHNS,HTN, OA. PT ADMITTTED FOR TREATMENT OF ACUTE ILLNESS. - Past Medical History Past Medical History: [place], Hypertension, Diabetes, Hypothyroidism, COPD, Arthritis Additional Medical History: Diabetic Neuropathy, Chronic Back Pain, Fibrocystic Breast Disease, Crohns Disease, Fibromyalgia, Mitral Valve Leak, Valvular Heart Disease, Bronchitits, Uterine Fibroids, Diarrhea, Fibromyalgia, Restless Leg Syndrome, Parathyroid Disease, Previous Blood Transfusion - Past Surgical History Surgical History: Cholecystectomy, Hysterectomy, Thyroidectomy Additional Surgical History: Bilateral Mastectomy due to stones - Family History Family Medical History: Diabetes Mellitus, Cancer, [place] - Social History Does patient currently use any type of tobacco product: No Have you used tobacco products in the last 12 months: No Type of Tobacco Use: None Does any household member use tobacco: No Alcohol Use: None Drug Use: None Risks, benefits, and alternatives of opioids discussed: No Prescription drug monitoring program results: PDMP reviewed and no concerns identified - Medications Home Medications: acetaminophen [From Lortab] Allergy (Verified 07/28/18 20:35) aluminum hydroxide [From Ascriptin] Allergy (Verified 07/28/18 20:35) aripiprazole [From Abilify] Allergy (Verified 07/28/18 20:35) aspirin [From Ascriptin] Allergy (Verified 07/28/18 20:35) bee pollen Allergy (Verified 07/28/18 20:35) calcium carbonate [From Ascriptin] Allergy (Verified 07/28/18 20:35) coconut oil Allergy (Verified 07/28/18 20:35) codeine Allergy (Verified 07/28/18 20:35) hydrocodone [From Lortab] Allergy (Verified 07/28/18 20:35) latex Allergy (Verified 07/28/18 20:35) levetiracetam [From Keppra] Allergy (Verified 07/28/18 20:35) metformin Allergy (Verified 07/28/18 20:35) niacin Allergy (Verified 07/28/18 20:35) oxycodone [From Percocet] Allergy (Verified 07/28/18 20:35) pregabalin [From Lyrica] Allergy (Verified 07/28/18 20:35) propoxyphene [From Darvon-N] Allergy (Verified 07/28/18 20:35) propranolol [From Inderal LA] Allergy (Verified 07/28/18 20:35) red dye Allergy (Verified 07/28/18 20:35) rosuvastatin [From Crestor] Allergy (Verified 07/28/18 20:35) IV DYE Allergy (Uncoded 01/05/20 07:23) - Review of Systems Constitutional: Weakness, Malaise Eyes: No Symptoms Reported ENT: No Symptoms Reported Respiratory: SOB with Excertion Cardiovascular: Edema Gastrointestinal: Nausea, Diarrhea Genitourinary: No Symptoms Reported Musculoskeletal: Back Pain, Leg Pain Skin: No Symptoms Reported Neurological: Weakness - Physical Exam Vital Signs: Blood Pressure [Left Arm] 173/101 Blood Pressure [Right Arm] 149/70 Blood Pressure [Left Calf] 118/57 Blood Pressure [Right Calf] 141/94 Blood Pressure [Left Arm] 183/70 Blood Pressure [Right Arm] 121/59 Blood Pressure 173/101 Oriented: Normal Eyes: Normal Ear: Normal Nose: Normal Throat: Normal Respiratory: RLL Diminished, LLL Diminished Cardiovascular: Normal. negative: Edema : Normal Auscultation: Bowel Sounds: Normal Palpation: Normal Tenderness: Diffuse, Mild Skin: Decreased Turgur Musculoskeletal: Back:Thoracic, Back:Lumbar, Motor Deficit Psychiatric: Anxiety Affect: Anxious Speech Pattern: Clear, Appropriate - Assessment/Plan (1) Acute hyperkalemia Status: Acute Plan: ADMIT, GENTLE IV HYDRATION STRICT I&OS. BP AND CARDIAC MONITIRNG, EKG ON ADMISSION. ELECTROLYTE IMBALANCE CORRECTION. VERIFY HOME MEDICATION. 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 use Diabetes mellitus complication status: with kidney complications Diabetes mellitus complication detail: with chronic kidney disease Status: Chronic - Allergies Allergies/Adverse Reactions: Allergies Allergy/AdvReac Type Severity Reaction Status Date / Time acetaminophen [From Lortab] Allergy Verified 07/28/18 20:35 aluminum hydroxide Allergy Verified 07/28/18 20:35 [From Ascriptin] aripiprazole [From Abilify] Allergy Verified 07/28/18 20:35 aspirin [From Ascriptin] Allergy Verified 07/28/18 20:35 bee pollen Allergy Verified 07/28/18 20:35 calcium carbonate Allergy Verified 07/28/18 20:35 [From Ascriptin] coconut oil Allergy Verified 07/28/18 20:35 codeine Allergy Verified 07/28/18 20:35 hydrocodone [From Lortab] Allergy Verified 07/28/18 20:35 latex Allergy Verified 07/28/18 20:35 levetiracetam [From Keppra] Allergy Verified 07/28/18 20:35 metformin Allergy Verified 07/28/18 20:35 niacin Allergy Verified 07/28/18 20:35 oxycodone [From Percocet] Allergy Verified 07/28/18 20:35 pregabalin [From Lyrica] Allergy Verified 07/28/18 20:35 propoxyphene [From Darvon-N] Allergy Verified 07/28/18 20:35 propranolol [From Inderal LA] Allergy Verified 07/28/18 20:35 red dye Allergy Verified 07/28/18 20:35 rosuvastatin [From Crestor] Allergy Verified 07/28/18 20:35 IV DYE Allergy Uncoded 01/05/20 07:23
--- NOTE | 2021-04-29 14:58 | RAD ---
HISTORY:Hyperkalemia, shortness of breathStudy: Single view chestComparison:02/07/2020Findings:No infiltrate, effusion, or pneumothorax identified .Cardiac and mediastinal contours are within normal limits .The soft tissues are intact .IMPRESSION:1.No acute cardiopulmonary abnormality.Electronically signed by: LINDA FIERRO (Apr 29, 2021 14:56:13)
[2021-04-29 15:22] VITALS: BMI 26.9
[2021-04-29 15:22] LABS: BASOPHILS # (AUTO) 0.1 X10^3/uL (0.0-0.1); EOSINOPHILS # (AUTO) 0.3 x10^3/uL (0.0-0.2); HEMATOCRIT 39.1 % (36.0-47.0); HEMOGLOBIN 12.8 g/dL (12.0-16.0); LYMPHOCYTES # (AUTO) 2.9 X10^3/uL (1.3-2.9); LYMPHOCYTES % (AUTO) 26.1 % (21.0-51.0); MEAN CORPUSCULAR HGB CONC 32.7 g/dL (33.0-35.0); MEAN CORPUSCULAR VOLUME 94.8 fL (80.0-100.0); MEAN PLATELET VOLUME 8.7 fL (7.4-11.0); MONOCYTES # (AUTO) 0.7 x10^3/uL (0.3-0.8); MONOCYTES % (AUTO) 5.9 % (0.0-13.0); NEUTROPHILS # (AUTO) 7.2 x10^3/uL (2.2-4.8); PLATELET COUNT 367 X10^3/uL (150.0-450.0); RED BLOOD COUNT 4.13 X10^6/uL (3.5-5.4); RED CELL DISTRIBUTION WIDTH 13.1 % (11.6-16.5); WHITE BLOOD COUNT 11.3 X10^3/uL (3.6-10.0)
[2021-04-29 15:42] LABS: ALANINE AMINOTRANSFERASE 18 Units/L (12-78); ALBUMIN 3.1 g/dL (3.4-5.0); ALKALINE PHOSPHATASE 90 Units/L (46-116); BLOOD UREA NITROGEN 28 mg/dL (7-18); CALCIUM 8.3 mg/dL (8.5-10.1); CARBON DIOXIDE 20.7 mmol/L (21-32); CHLORIDE 108 mmol/L (98-107); CKMB % 2.9 % (<4); COR NA(FOR HYPERGLY) 141 mmol/L (136-145); CREATINE KINASE 55 Units/L (26-192); CREATINE KINASE MB 1.6 ng/mL (0-4.0); CREATININE 1.29 mg/dL (0.55-1.02); MAGNESIUM 1.3 mg/dL (1.7-2.9); SODIUM 138 mmol/L (136-145); TOTAL PROTEIN 6.5 g/dL (6.4-8.2); TROPONIN I < 0.02 ng/mL (0-1.5); eGFR NON BLACK RACES 43 (>60)
[2021-04-29 15:53] LABS: ASPARTATE AMINO TRANSFERASE 23 Units/L (15-37)
[2021-04-29] MEDS: NS 1000 ML 1,000 ML IV SCH (16:46)
[2021-04-29] MEDS: KAYEXALATE SUSP PO SCH ×2 (16:46→21:49)
[2021-04-29] MEDS ORDERED: SNACK - Diabetic Appropriate PO SCH (20:00)
[2021-04-29] MEDS ORDERED: LANTUS SC SCH (21:00)
[2021-04-29] MEDS: PROVENTIL NEB TX 0.083% 2.5MG/ 3ML NEB SCH (21:14)
[2021-04-29] MEDS: MAGNESIUM SULFATE 1 GRAM/100 mL PREMIX 1 G/100 ML BAG IV PRN ×2 (21:50→23:07)
[2021-04-29] MEDS ORDERED: HumuLIN R SC PRN (21:52)
[2021-04-30] MEDS: MAGNESIUM SULFATE 1 GRAM/100 mL PREMIX 1 G/100 ML BAG IV PRN ×2 (00:10→01:15)
[2021-04-30] MEDS: NS 1000 ML 1,000 ML IV SCH (05:25)
[2021-04-30 05:28] LABS: BASOPHILS # (AUTO) 0.1 X10^3/uL (0.0-0.1); BASOPHILS % (AUTO) 0.8 % (0.2-1.0); EOSINOPHILS # (AUTO) 0.4 x10^3/uL (0.0-0.2); EOSINOPHILS % (AUTO) 3.3 % (0.9-2.9); HEMATOCRIT 36.5 % (36.0-47.0); LYMPHOCYTES # (AUTO) 2.9 X10^3/uL (1.3-2.9); LYMPHOCYTES % (AUTO) 24.4 % (21.0-51.0); MEAN CORPUSCULAR HEMOGLOBIN 30.8 pg (27.0-34.0); MEAN CORPUSCULAR HGB CONC 32.8 g/dL (33.0-35.0); MEAN PLATELET VOLUME 8.8 fL (7.4-11.0); MONOCYTES # (AUTO) 0.8 x10^3/uL (0.3-0.8); MONOCYTES % (AUTO) 7.2 % (0.0-13.0); NEUTROPHILS # (AUTO) 7.6 x10^3/uL (2.2-4.8); NEUTROPHILS % (AUTO) 64.3 % (42.0-75.0); PLATELET COUNT 328 X10^3/uL (150.0-450.0); RED BLOOD COUNT 3.88 X10^6/uL (3.5-5.4); RED CELL DISTRIBUTION WIDTH 12.8 % (11.6-16.5); WHITE BLOOD COUNT 11.8 X10^3/uL (3.6-10.0)
[2021-04-30 05:31] LABS: ALANINE AMINOTRANSFERASE 17 Units/L (12-78); ALBUMIN 2.8 g/dL (3.4-5.0); ALKALINE PHOSPHATASE 79 Units/L (46-116); ASPARTATE AMINO TRANSFERASE 19 Units/L (15-37); BLOOD UREA NITROGEN 20 mg/dL (7-18); CALCIUM 8.3 mg/dL (8.5-10.1); CARBON DIOXIDE 22.4 mmol/L (21-32); CHLORIDE 108 mmol/L (98-107); COR CA(FOR HYPOALB) 9.3 mg/dL (8.5-10.1); COR NA(FOR HYPERGLY) 141 mmol/L (136-145); CREATININE 1.02 mg/dL (0.55-1.02); SODIUM 140 mmol/L (136-145); TOTAL PROTEIN 5.9 g/dL (6.4-8.2); eGFR NON BLACK RACES 56 (>60)
[2021-04-30] MEDS: PROVENTIL NEB TX 0.083% 2.5MG/ 3ML NEB SCH (08:55)
[2021-04-30] MEDS ORDERED: LOVENOX INJ 40 MG SYR SC SCH (10:00)
[2021-04-30 12:07] VITALS: BP 187/88
== END 2021-04-30 16:15 | disposition home or self-care (01) ==
LOC: MED/SURG
PROVIDERS: ADMIT Internal Medicine; ATTEND Internal Medicine
DX: R94.31 Abnormal electrocardiogram [ECG] [EKG]; E87.5 Hyperkalemia; I12.9 Hypertensive chronic kidney disease with stage 1 through stage 4 chronic kidney disease, or unspecified chronic kidney disease; Z20.822 Contact with and (suspected) exposure to COVID-19; E11.22 Type 2 diabetes mellitus with diabetic chronic kidney disease; N18.9 Chronic kidney disease, unspecified; K50.90 Crohn's disease, unspecified, without complications; K21.9 Gastro-esophageal reflux disease without esophagitis; M79.7 Fibromyalgia; Z79.4 Long term (current) use of insulin; E03.8 Other specified hypothyroidism; E11.65 Type 2 diabetes mellitus with hyperglycemia

== ENCOUNTER 2021-09-12 22:33 | Inpatient (IN) ==
--- NOTE | 2021-09-12 23:47 | DR.HYPOGLY ---
HPI Time Seen Time Seen by Provider: 09/12/21 23:47 PCP Primary Care Physician: CHRISTIAN FRAUSTO HPI Comment HPI Comment: PATIENT IS 76YR OLD FEMALE WITH HISTORY OF DM IN ER WITH ELEVATED GLUCOSE. PATIENT ON INSULIN BUT HAVE NOT TAKEN MED FOR 3 DAYS. HAVING POLYURIA AND POLYDYPSEA. Complaint Chief Complaint Doctors Comments: ELEVATED GLUCOSE TIMES 3 DAYS. Chief Complaint:: BLOOD SUGAR HAS BEEN ELEVATED FOR THE LAST 3 DAYS. PATIENT STATES THAT SHE KNOWS THAT IT HAS BEEN HIGH 565. "FOR THE LAST 3 DAYS I'VE JUST BEEN FEELING BAD." Self Treatment fo Chief Complaint: PATIENT STATES THAT SHE HAS BEEN DRINKING LOTS OF WATER AND TAKING CHRONIUM PILLS AND PATIENT IS UNSURE HOW SHE HAS BEEN TAKING HER INSULIN OVER THE LAST 3 DAYS. COVID-19 Coronavirus risk:travel/contact w/high risk person: No Has patient experienced Coronavirus symptoms: No Nurses notes reviewed Nurses Notes Review: Yes Source History Provided: Patient and Family Member Mode of Arrival Mode of Arrival: Wheelchair Timing Onset of Chief Complaint: 09/10/21 Came on: Suddenly Duration Duration: Constant Duration: Days Context [place]: Confused Symptoms: Generalized weakness History of: Diabetes and Insulin use Prehospital care: None Modifying factors Improves: Nothing Associated signs and symptoms Associated signs and symptoms: Nausea Other History Other history: DM. PMH PMH Past Medical History: Yes Past Medical History: Arthritis, COPD, Diabetes, Hypertension, Hypothyroidism and [place] Past Medical History Comment: CHRONIC DIARRHEA Past Surgical History: Yes Surgical History: Cholecystectomy, Hysterectomy, Mastectomy and Thyroidectomy Family History History of Family Medical Conditions: Yes Family Medical History: Diabetes Mellitus, Cancer and [place] Social History Alcohol Use: None Do you use any recreational Drugs:: No Lives With: Spouse Lives Where: Home Travel Risk Coronavirus risk:travel/contact w/high risk person: No Has patient experienced Coronavirus symptoms: No Infectious screening In the last 2 months have you had wt loss of >10#?: NO Have you had fever, night sweats or hemotysis?: No Have you traveled outside the country in the last 6 months?: No Isolation: Standard ROS Review of Systems Constitutional: See HPI, Fever, Weakness and Fatigue Eyes: No Symptoms Reported and See HPI ENTM: No Symptoms Reported and See HPI; negative Nose Discharge and Nose Congestion Respiratoy: No Symptoms Reported and See HPI; negative Moist Cough, Short of Breath and Wheezing Cardiovascular: No Symptoms Reported and See HPI; negative Chest Pain Gastrointestinal/Abdominal: See HPI, Nausea and Other (POLYDYPSIA.); negative Abdominal Pain, Diarrhea and Vomiting Genitourinary: See HPI and Other (POYURIA); negative Dysuria, Frequency and Hematuria Neurological: No Symptoms Reported and See HPI Musculoskeletal: No Symptoms Reported and See HPI; negative Muscle Pain Integumentary: No Symptoms Reported and See HPI; negative Rash and Juandice Hematologic/Lymphatic: No Symptoms Reported and See HPI; negative Easy Bruising Endocrine: See HPI, Increased Thirst and Increased Urine Psychiatric: No Symptoms Reported and See HPI All Other Systems: Reviewed and Negative PE Vital Signs Vitals: Temperature 100.5 F Pulse Rate 75 Respiratory Rate 30 Blood Pressure [Left Arm] 173/101 Blood Pressure [Right Arm] 187/88 Blood Pressure 93/51 O2 Sat by Pulse Oximetry 97 General Limitations: Altered Mental Status General Appearance: Alert and In No Apparent Distress Eyes Eye exam: Normal Appearance; negative Scleral Icterus and Conjunctival Injection Pupils: Regular, Round: Bilateral and Reactive: Bilateral Sclera/Conjunctival: Normal Inspection: Bilateral ENT ENT Exam: Normal Exam, Normal Oropharynx, Normal External Ear Exam and TM's Normal Bilaterally Nose Exam: Normal Nose Exam Mouth Exam: Normal Inspection; negative Lip Swelling and Tongue Swelling Throat Exam: Normal Inspection; negative Tonsillar Erythema, Tonsillomegaly and Tonsillar Exudate Neck Neck Exam: Normal Inspection and Trachea Midline; negative Tenderness Chest Chest Inspection: Normal Inspection; negative Symmetric Chest Wall Rise and Tenderness Respiratory Respiratory Exam: Normal Lung Sounds Bilat, Accessory Muscle Use and Chest Wall Tenderness Respiratory Exam: Bilateral: Clear to Auscultation Cardiovascular Cardiovascular Exam: Regular Rate and Normal Rhythm Abdominal Exam Abdominal Exam: Normal Inspection, Normal Bowel Sounds and Soft; negative Tenderness Extremities Extremities Exam: Normal Inspection and Normal Capillary Refill Back Back Exam: Normal Inspection; negative (R) CVA Tenderness and (L) CVA Tenderness Neurologic Neurological Exam: Alert and Oriented X3; negative Motor Sensory Deficit Patient Oriented To: Person and Place; negative Time Speech: Fluid Speech Cranial Nerve Exam: EOM Function (II, III, IV, ): Normal, Facial Sensation (V): Normal, Facial Palsy (VII): Normal, Gag reflex (XI): Normal and Tongue Deviation: Normal Motor Strength - LUE: 5/5 Motor Strength - RUE: 5/5 Motor Strength - LLE: 5/5 Motor Strength - RLE: 5/5 Upper Motor Neuron Exam: Babinski Sign: Normal Psychiatric Psychiatric Exam: Normal Affect and Normal Mood Skin Skin Exam: Dry MDM Additional information Additional Information Obtained From: Old Records Differential diagnosis Differential diagnosis: CVA (HYPERGLYCEMIA,MEDICATION NONCOMPLIANT, UTI, PNEUMONIA, [place].) Induced by: Insulin COURSE Treatment Treatment: SEE ORDERS DONE WHILE PATIENT WAS IN ER. NS 1L IV BOLUS WHILE IN ER. DISCUSSED LABS AND XRAY REPORT AND EKG WITH PATIENT. SHE WILL BE ADMITTED TO HOSPITAL FOR FURTHER MANAGEMENT. Reevaluation 1st: Improved Consultation Consultation Comments: DISCUSSED PATIENT WITH DR. HITCHCOCK. HE WILL ADMIT PATIENT. Education/Counseling Education/Counseling: Patient Educated On: Diagnosis ROR Labs Reviewed Laboratory Results Reviewed?: Yes Result Diagrams: 09/16/21 04:40 09/16/21 04:40 Laboratory: WBC 12.0 X10^3/uL (3.6-10.0) H 09/12/21 23:56 RBC 3.93 X10^6/uL (3.5-5.4) 09/12/21 23:56 Hgb 11.4 g/dL (12.0-16.0) L 09/12/21 23:56 Hct 34.4 % (36.0-47.0) L 09/12/21 23:56 MCV 87.5 fL (80.0-100.0) 09/12/21 23:56 MCH 29.0 pg (27.0-34.0) 09/12/21 23:56 MCHC 33.2 g/dL (33.0-35.0) 09/12/21 23:56 RDW 13.0 % (11.6-16.5) 09/12/21 23:56 Plt Count 264 X10^3/uL (150.0-450.0) 09/12/21 23:56 MPV 8.5 fL (7.4-11.0) 09/12/21 23:56 Neut % (Auto) 76.4 % (42.0-75.0) H 09/12/21 23:56 Lymph % (Auto) 14.3 % (21.0-51.0) L 09/12/21 23:56 [place] % (Auto) 7.9 % (0.0-13.0) 09/12/21 23:56 Eos % (Auto) 0.8 % (0.9-2.9) L 09/12/21 23:56 Baso % (Auto) 0.6 % (0.2-1.0) 09/12/21 23:56 Neut # (Auto) 9.1 x10^3/uL (2.2-4.8) H 09/12/21 23:56 Lymph # (Auto) 1.7 X10^3/uL (1.3-2.9) 09/12/21 23:56 [place] # (Auto) 0.9 x10^3/uL (0.3-0.8) H 09/12/21 23:56 Eos # (Auto) 0.1 x10^3/uL (0.0-0.2) 09/12/21 23:56 Baso # (Auto) 0.1 X10^3/uL (0.0-0.1) 09/12/21 23:56 Absolute Nucleated RBC 0.1 /100WBC 09/12/21 23:56 Sodium 129 mmol/L (136-145) L 09/12/21 23:56 Corrected Sodium 130 mmol/L (136-145) L 09/12/21 23:56 Potassium 5.3 mmol/L (3.5-5.1) H 09/12/21 23:56 Chloride 99 mmol/L (98-107) 09/12/21 23:56 Carbon Dioxide 19.1 mmol/L (21-32) L 09/12/21 23:56 BUN 30 mg/dL (7-18) H 09/12/21 23:56 Creatinine 2.47 mg/dL (0.55-1.02) H 09/12/21 23:56 Est GFR (MDRD) Af Amer 24 (>60) L 09/12/21 23:56 Est GFR (MDRD) Non-Af 20 (>60) L 09/12/21 23:56 Glucose 122 mg/dL (65-99) H 09/12/21 23:56 POC Glucose (mg/dL) 130 mg/dL (65-99) H 09/13/21 02:45 Calcium 8.1 mg/dL (8.5-10.1) L 09/12/21 23:56 Corrected Calcium 9.0 mg/dL (8.5-10.1) 09/12/21 23:56 Total Bilirubin 0.40 mg/dL (0.2-1.0) 09/12/21 23:56 AST 24 Units/L (15-37) 09/12/21 23:56 ALT 21 Units/L (12-78) 09/12/21 23:56 Alkaline Phosphatase 107 Units/L (46-116) 09/12/21 23:56 Creatine Kinase 571 Units/L (26-192) H 09/12/21 23:56 CK-MB (CK-2) 4.9 ng/mL (0-4.0) H* 09/12/21 23:56 CK/CKMB % Calc 0.9 % (<4) 09/12/21 23:56 Troponin I High Sens 10.8 ng/L (4.0-60.0) 09/12/21 23:56 Total Protein 6.5 g/dL (6.4-8.2) 09/12/21 23:56 Albumin 2.9 g/dL (3.4-5.0) L 09/12/21 23:56 Globulin 3.6 g/dL (2.5-4.5) 09/12/21 23:56 Albumin/Globulin Ratio 0.8 Ratio (1.1-2.1) L 09/12/21 23:56 SARS-CoV-2 (PCR) Negative (NEGATIVE) 09/13/21 01:50 Influenza Type A (PCR) Negative (NEGATIVE) 09/13/21 01:50 Influenza Type B (PCR) Negative (NEGATIVE) 09/13/21 01:50 RSV (PCR) Negative (NEGATIVE) 09/13/21 01:50 XRAY XRAY Interpreted by: Radiologist (REPORTS NOTED.) and Self EKG Rate: 86 [place]: Normal Rhythm: NSR Block: LBBB and RBBB Hypertrophy: None ST: Nonsp Opioid Opioid Risk Tool Age (Carlos Manuel box if 16-45): No History of Preadolescent Sexual Abuse: No Total: 0 Total Score Risk Category: Low Risk Copyright: [facility] predicting aberrant behaviors Diagnosis Discharge Problem: Acute hyperglycemia, Acute hypotension, Generalized weakness Fever Qualifiers: Fever type: unspecified Qualified Code(s): R50.9 - Fever, unspecified Instructions Instructions: Nausea, Adult How to Take Your Blood Pressure Preventing Hypertension Flank Pain, Adult, Prhx-iv-[id number] Abdominal Pain, Adult, Xrfh-[id number] Upper Endoscopy, Care After Nausea and Vomiting, Adult, Yovd-pg-[id number] How to Take Your Blood Pressure, Edpx-am-[id number] Urinary Tract Infection, Adult, Iokk-zk-Hspn Nausea, Adult, Wwso-pl-Baph Flank Pain, Adult Forms: Excuse From Work or School Precautions for COVID19 [facility] [place] [facility] Social Distancing
[2021-09-13 00:01] LABS: BASOPHILS # (AUTO) 0.1 X10^3/uL (0.0-0.1); HEMOGLOBIN 11.4 g/dL (12.0-16.0)
[2021-09-13 00:05] LABS: BASOPHILS % (AUTO) 0.6 % (0.2-1.0); EOSINOPHILS # (AUTO) 0.1 x10^3/uL (0.0-0.2); EOSINOPHILS % (AUTO) 0.8 % (0.9-2.9); HEMATOCRIT 34.4 % (36.0-47.0); LYMPHOCYTES # (AUTO) 1.7 X10^3/uL (1.3-2.9); LYMPHOCYTES % (AUTO) 14.3 % (21.0-51.0); MEAN CORPUSCULAR HGB CONC 33.2 g/dL (33.0-35.0); MEAN CORPUSCULAR VOLUME 87.5 fL (80.0-100.0); MEAN PLATELET VOLUME 8.5 fL (7.4-11.0); MONOCYTES # (AUTO) 0.9 x10^3/uL (0.3-0.8); MONOCYTES % (AUTO) 7.9 % (0.0-13.0); NEUTROPHILS # (AUTO) 9.1 x10^3/uL (2.2-4.8); NEUTROPHILS % (AUTO) 76.4 % (42.0-75.0); RED BLOOD COUNT 3.93 X10^6/uL (3.5-5.4)
[2021-09-13 00:45] LABS: ALBUMIN 2.9 g/dL (3.4-5.0); CALCIUM 8.1 mg/dL (8.5-10.1); CARBON DIOXIDE 19.1 mmol/L (21-32); CKMB % 0.9 % (<4); CREATININE 2.47 mg/dL (0.55-1.02); TOTAL PROTEIN 6.5 g/dL (6.4-8.2)
[2021-09-13 00:46] LABS: CREATINE KINASE MB 4.9 ng/mL (0-4.0)
--- NOTE | 2021-09-13 01:07 | CT ---
PROCEDURE: CT Head without Contrast .HISTORY: Altered mental status.TECHNIQUE: Axial images were performed through the head without the administration of IV contrast with multiplanar reformations . Dose reduction techniques including Automated Exposure Control (AEC) and adjustment of mA and kV were utilized .COMPARISON: 12/02/2018.TECHNICAL QUALITY: Satisfactory .FINDINGS:Brain shows no mass, hemorrhage, or acute stroke.Mild periventricular old micro ischemic changes. 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 Mild diffuse cerebral and cerebellar atrophy.Ventricles are normal size for patient's age.No acute skull or scalp abnormality.Visualized sinuses and mastoids are clear.IMPRESSION:1. No acute intracranial abnormality.2. Senescent changes.Electronically signed by: Damián Morse (Sep 13, 2021 01:06:07)
--- NOTE | 2021-09-13 01:44 | RAD ---
PROCEDURE: Chest X-ray 1 View .HISTORY: Dyspnea.TECHNIQUE: AP view .COMPARISON: 04/29/2021.TECHNICAL QUALITY: Satisfactory .FINDINGS:Normal size heart .Mediastinum and hilar regions show no masses or lymphadenopathy .Normal central vascularity .No pulmonary consolidation, masses, pleural fluid, or pneumothorax .No acute bony abnormality .IMPRESSION:No active cardiopulmonary disease .Electronically signed by: Damián Morse (Sep 13, 2021 01:41:54)
[2021-09-13] MEDS ORDERED: NS 1,000 ML IV 1,000 ML ONE (02:35)
[2021-09-13] MEDS: NS 1,000 ML IV 1,000 ML IV SCH ×3 (02:40→19:15)
[2021-09-13] MEDS ORDERED: PATIENT'S HOME MEDICATION (Levocetirizine 5 mg tablet) PO SCH (03:40)
[2021-09-13] MEDS ORDERED: ZANAFLEX PO PRN (03:40)
[2021-09-13 04:49] VITALS: BMI 30.2
[2021-09-13 05:14] LABS: BASOPHILS # (AUTO) 0.1 X10^3/uL (0.0-0.1); EOSINOPHILS # (AUTO) 0.2 x10^3/uL (0.0-0.2); EOSINOPHILS % (AUTO) 2.2 % (0.9-2.9); HEMATOCRIT 32.2 % (36.0-47.0); LYMPHOCYTES % (AUTO) 18.6 % (21.0-51.0); MEAN CORPUSCULAR HEMOGLOBIN 29.8 pg (27.0-34.0); MEAN CORPUSCULAR HGB CONC 34.1 g/dL (33.0-35.0); MEAN CORPUSCULAR VOLUME 87.5 fL (80.0-100.0); MEAN PLATELET VOLUME 8.8 fL (7.4-11.0); MONOCYTES % (AUTO) 9.4 % (0.0-13.0); NEUTROPHILS # (AUTO) 7.4 x10^3/uL (2.2-4.8); NEUTROPHILS % (AUTO) 68.8 % (42.0-75.0); RED BLOOD COUNT 3.68 X10^6/uL (3.5-5.4); RED CELL DISTRIBUTION WIDTH 12.9 % (11.6-16.5); WHITE BLOOD COUNT 10.8 X10^3/uL (3.6-10.0)
[2021-09-13 05:30] LABS: ALBUMIN 2.7 g/dL (3.4-5.0); CALCIUM 7.9 mg/dL (8.5-10.1); CARBON DIOXIDE 20.3 mmol/L (21-32); CHOL/HDL RATIO 5.5 (0.0-5.0); COR CA(FOR HYPOALB) 8.9 mg/dL (8.5-10.1); CREATININE 2.66 mg/dL (0.55-1.02); MAGNESIUM 1.1 mg/dL (1.7-2.9); TOTAL PROTEIN 6.1 g/dL (6.4-8.2)
[2021-09-13] MEDS ORDERED: K-RIDER 10 MEQ/NS 100 ML 10 MEQ/100 ML BAG IV PRN (05:36)
[2021-09-13] MEDS ORDERED: POTASSIUM CHL 60 MEQ/NS 0.45% 500 ML IV PRN (05:36)
[2021-09-13] MEDS ORDERED: KLOR-CON PO PRN (05:36)
[2021-09-13] MEDS ORDERED: K-DUR TAB 20 MEQ PO PRN (05:36)
[2021-09-13] MEDS ORDERED: POTASSIUM CHL 40 MEQ/NS 0.45% 500 ML IV PRN (05:36)
[2021-09-13] MEDS ORDERED: POTASSIUM CHLORIDE LIQ 20 MEQ UDC PO PRN (05:36)
[2021-09-13] MEDS ORDERED: MICRO K EXTEN CAP 10 MEQ PO PRN (05:36)
[2021-09-13] MEDS ORDERED: MAGNESIUM SULFATE 1 GRAM/100 mL PREMIX 1 G/100 ML BAG IV ONE (05:40)
[2021-09-13] MEDS: MAGNESIUM SULFATE 1 GRAM/100 mL PREMIX 1 G/100 ML BAG IV PRN ×6 (05:44→14:07)
[2021-09-13] MEDS: ZyrTEC SYRUP 1 MG/ML 5ml unit dose PO SCH (08:15)
[2021-09-13] MEDS: ZETIA TAB 10 MG PO SCH (08:15)
[2021-09-13] MEDS: NORVASC TAB 5 MG PO SCH (08:15)
[2021-09-13] MEDS ORDERED: ZyrTEC TAB 10 MG PO SCH (09:00)
[2021-09-13] MEDS: LOVENOX INJ 30 MG SYR SC SCH (09:59)
[2021-09-13] MEDS: NovoLIN R (or HumuLIN R) SUBCUT PRN ×2 (11:30→15:53)
[2021-09-13 12:35] LABS: CREATINE KINASE MB 4.8 ng/mL (0-4.0)
[2021-09-13] MEDS: REGLAN TAB 5 MG PO PRN (17:46)
[2021-09-13] MEDS: CYMBALTA PO SCH (20:44)
[2021-09-13] MEDS: SNACK - Diabetic Appropriate PO SCH (20:44)
[2021-09-14] MEDS: NS 1,000 ML IV 1,000 ML IV SCH ×3 (02:05→19:37)
[2021-09-14 04:32] LABS: HEMOGLOBIN 10.7 g/dL (12.0-16.0); MEAN CORPUSCULAR HEMOGLOBIN 29.8 pg (27.0-34.0); WHITE BLOOD COUNT 8.9 X10^3/uL (3.6-10.0)
[2021-09-14 04:37] LABS: BASOPHILS # (AUTO) 0.1 X10^3/uL (0.0-0.1); BASOPHILS % (AUTO) 0.8 % (0.2-1.0); EOSINOPHILS # (AUTO) 0.3 x10^3/uL (0.0-0.2); EOSINOPHILS % (AUTO) 3.4 % (0.9-2.9); HEMATOCRIT 31.7 % (36.0-47.0); LYMPHOCYTES # (AUTO) 1.9 X10^3/uL (1.3-2.9); LYMPHOCYTES % (AUTO) 20.9 % (21.0-51.0); MEAN CORPUSCULAR HGB CONC 33.7 g/dL (33.0-35.0); MEAN CORPUSCULAR VOLUME 88.6 fL (80.0-100.0); MEAN PLATELET VOLUME 9.3 fL (7.4-11.0); MONOCYTES # (AUTO) 0.9 x10^3/uL (0.3-0.8); MONOCYTES % (AUTO) 9.8 % (0.0-13.0); NEUTROPHILS # (AUTO) 5.8 x10^3/uL (2.2-4.8); NEUTROPHILS % (AUTO) 65.1 % (42.0-75.0); RED BLOOD COUNT 3.58 X10^6/uL (3.5-5.4); RED CELL DISTRIBUTION WIDTH 12.8 % (11.6-16.5)
[2021-09-14 04:51] LABS: ALBUMIN 2.2 g/dL (3.4-5.0); CALCIUM 7.2 mg/dL (8.5-10.1); COR CA(FOR HYPOALB) 8.6 mg/dL (8.5-10.1); CREATININE 1.49 mg/dL (0.55-1.02); TOTAL PROTEIN 5.6 g/dL (6.4-8.2)
[2021-09-14] MEDS: NovoLIN R (or HumuLIN R) SUBCUT PRN ×5 (08:06→23:32)
[2021-09-14] MEDS: ZETIA TAB 10 MG PO SCH (08:12)
[2021-09-14] MEDS: LOVENOX INJ 30 MG SYR SC SCH (08:12)
[2021-09-14] MEDS: NORVASC TAB 5 MG PO SCH (08:12)
[2021-09-14] MEDS: ZyrTEC SYRUP 1 MG/ML 5ml unit dose PO SCH (08:13)
[2021-09-14 14:26] LABS: BILIRUBIN,URINE NEGATIVE (NEGATIVE); BLOOD/HEMOGLOBIN,URINE NEGATIVE (NEGATIVE); GLUCOSE, URINE 2+ (NEGATIVE); KETONES,URINE NEGATIVE (NEGATIVE); LEUKOCYTE ESTERASE ,URINE 1+ (NEGATIVE); NITRITES,URINE NEGATIVE (NEGATIVE); PROTEIN,URINE NEGATIVE (NEGATIVE); UROBILINOGEN,URINE NORMAL (NORMAL)
[2021-09-14 14:49] LABS: COLOR,URINE PALE YELLOW (YELLOW)
[2021-09-14 14:50] LABS: APPEARANCE,URINE SLIGHTLY HAZY (CLEAR); BACTERIA,URINE 1+ /HPF (NEGATIVE); RBC,URINE NONE SEEN /HPF (0-3); SQUAMOUS EPITHELIAL CELL,UR FEW /HPF (NEGATIVE)
[2021-09-14] MEDS: CYMBALTA PO SCH (20:05)
[2021-09-14] MEDS: SNACK - Diabetic Appropriate PO SCH (20:05)
[2021-09-14] MEDS: REGLAN TAB 5 MG PO PRN (22:21)
[2021-09-15] MEDS: NS 1,000 ML IV 1,000 ML IV SCH ×2 (02:23→11:24)
[2021-09-15] MEDS: NovoLIN R (or HumuLIN R) SUBCUT PRN ×4 (03:51→23:50)
[2021-09-15 05:26] LABS: BASOPHILS # (AUTO) 0.1 X10^3/uL (0.0-0.1); BASOPHILS % (AUTO) 0.9 % (0.2-1.0); EOSINOPHILS # (AUTO) 0.4 x10^3/uL (0.0-0.2); EOSINOPHILS % (AUTO) 6.4 % (0.9-2.9); HEMATOCRIT 29.8 % (36.0-47.0); LYMPHOCYTES # (AUTO) 1.7 X10^3/uL (1.3-2.9); LYMPHOCYTES % (AUTO) 27.3 % (21.0-51.0); MEAN CORPUSCULAR HEMOGLOBIN 29.5 pg (27.0-34.0); MEAN CORPUSCULAR HGB CONC 33.5 g/dL (33.0-35.0); MEAN PLATELET VOLUME 9.2 fL (7.4-11.0); MONOCYTES # (AUTO) 0.8 x10^3/uL (0.3-0.8); MONOCYTES % (AUTO) 12.8 % (0.0-13.0); NEUTROPHILS # (AUTO) 3.3 x10^3/uL (2.2-4.8); NEUTROPHILS % (AUTO) 52.6 % (42.0-75.0); RED BLOOD COUNT 3.38 X10^6/uL (3.5-5.4); RED CELL DISTRIBUTION WIDTH 12.8 % (11.6-16.5); WHITE BLOOD COUNT 6.2 X10^3/uL (3.6-10.0)
--- NOTE | 2021-09-15 05:34 | RAD ---
PROCEDURE: Chest X-ray 1 View .HISTORY: FEVER .TECHNIQUE: AP view .COMPARISON: 09/13/2021.TECHNICAL QUALITY: Satisfactory .FINDINGS:Normal size heart .Mediastinum and hilar regions show no masses or lymphadenopathy .Normal central vascularity .No pulmonary consolidation, masses, pleural fluid, or pneumothorax .No acute bony abnormality .IMPRESSION:No active cardiopulmonary disease .Electronically signed by: Damián Morse (Sep 15, 2021 05:32:42)
[2021-09-15 05:50] LABS: ALANINE AMINOTRANSFERASE 24 Units/L (12-78); ALBUMIN 2.2 g/dL (3.4-5.0); ALKALINE PHOSPHATASE 103 Units/L (46-116); ASPARTATE AMINO TRANSFERASE 19 Units/L (15-37); BLOOD UREA NITROGEN 16 mg/dL (7-18); CALCIUM 7.3 mg/dL (8.5-10.1); CARBON DIOXIDE 19.9 mmol/L (21-32); CHLORIDE 110 mmol/L (98-107); COR CA(FOR HYPOALB) 8.7 mg/dL (8.5-10.1); COR NA(FOR HYPERGLY) 142 mmol/L (136-145); CREATININE 1.07 mg/dL (0.55-1.02); MAGNESIUM 1.5 mg/dL (1.7-2.9); SODIUM 140 mmol/L (136-145); TOTAL PROTEIN 5.6 g/dL (6.4-8.2); eGFR NON BLACK RACES 53 (>60)
[2021-09-15 05:57] LABS: PLATELET MORPHOLOGY COMMENT NORMAL (NORMAL)
[2021-09-15] MEDS: MAGNESIUM SULFATE 1 GRAM/100 mL PREMIX 1 G/100 ML BAG IV PRN ×2 (05:59→22:20)
[2021-09-15] MEDS: ZETIA TAB 10 MG PO SCH (09:57)
[2021-09-15] MEDS: REGLAN TAB 5 MG PO PRN (09:57)
[2021-09-15] MEDS: LOVENOX INJ 30 MG SYR SC SCH (09:58)
[2021-09-15] MEDS: NORVASC TAB 5 MG PO SCH (09:58)
[2021-09-15] MEDS: ZyrTEC SYRUP 1 MG/ML 5ml unit dose PO SCH (11:15)
[2021-09-15] MEDS: SNACK - Diabetic Appropriate PO SCH (20:00)
[2021-09-15] MEDS ORDERED: APRESOLINE INJ 20 MG VIAL IVP PRN (20:07)
[2021-09-15] MEDS: TOPROL XL PO SCH (22:15)
[2021-09-15] MEDS: PROTONIX TAB 40 MG PO SCH (22:15)
[2021-09-15] MEDS: CYMBALTA PO SCH (22:15)
[2021-09-16] MEDS: NS 1,000 ML IV 1,000 ML IV SCH ×3 (00:51→12:42)
[2021-09-16 04:54] LABS: BASOPHILS # (AUTO) 0.1 X10^3/uL (0.0-0.1); BASOPHILS % (AUTO) 1.2 % (0.2-1.0); EOSINOPHILS # (AUTO) 0.5 x10^3/uL (0.0-0.2); EOSINOPHILS % (AUTO) 6.9 % (0.9-2.9); HEMATOCRIT 29.8 % (36.0-47.0); HEMOGLOBIN 10.1 g/dL (12.0-16.0); LYMPHOCYTES # (AUTO) 2.3 X10^3/uL (1.3-2.9); LYMPHOCYTES % (AUTO) 29.7 % (21.0-51.0); MEAN CORPUSCULAR HEMOGLOBIN 29.4 pg (27.0-34.0); MEAN CORPUSCULAR HGB CONC 33.7 g/dL (33.0-35.0); MEAN CORPUSCULAR VOLUME 87.3 fL (80.0-100.0); MEAN PLATELET VOLUME 8.6 fL (7.4-11.0); NEUTROPHILS # (AUTO) 3.8 x10^3/uL (2.2-4.8); NEUTROPHILS % (AUTO) 49.2 % (42.0-75.0); RED BLOOD COUNT 3.42 X10^6/uL (3.5-5.4); RED CELL DISTRIBUTION WIDTH 12.7 % (11.6-16.5); WHITE BLOOD COUNT 7.7 X10^3/uL (3.6-10.0)
[2021-09-16 05:07] LABS: ALANINE AMINOTRANSFERASE 22 Units/L (12-78); ALBUMIN 2.4 g/dL (3.4-5.0); ALKALINE PHOSPHATASE 100 Units/L (46-116); ASPARTATE AMINO TRANSFERASE 15 Units/L (15-37); BLOOD UREA NITROGEN 13 mg/dL (7-18); CALCIUM 7.8 mg/dL (8.5-10.1); CHLORIDE 110 mmol/L (98-107); COR CA(FOR HYPOALB) 9.1 mg/dL (8.5-10.1); COR NA(FOR HYPERGLY) 141 mmol/L (136-145); CREATININE 0.91 mg/dL (0.55-1.02); SODIUM 140 mmol/L (136-145); TOTAL PROTEIN 5.7 g/dL (6.4-8.2); eGFR NON BLACK RACES > 60 (>60)
[2021-09-16] MEDS: LOVENOX INJ 30 MG SYR SC SCH (11:27)
[2021-09-16] MEDS: TOPROL XL PO SCH (12:41)
[2021-09-16] MEDS: PROTONIX TAB 40 MG PO SCH (12:41)
[2021-09-16] MEDS: ZETIA TAB 10 MG PO SCH (12:41)
[2021-09-16] MEDS: NORVASC TAB 5 MG PO SCH (12:41)
[2021-09-16] MEDS: ZyrTEC SYRUP 1 MG/ML 5ml unit dose PO SCH (12:42)
--- NOTE | 2021-09-16 12:56 | NM ---
HISTORYTachycardia, weakness, hypotensionSTUDYNuclear medicine perfusion lung scanTechnique: Patient received intravenous injection of 5.8 millicuries technetium 99 MAA.COMPARISONChest x-ray same dateFINDINGSThere is symmetric perfusion without significant subsegmental, segmental, or lobar perfusion defects. Probability of acute pulmonary thromboembolic disease is low.IMPRESSIONLow probability acute pulmonary thromboembolic diseaseElectronically signed by: MATT COOK (Sep 16, 2021 12:55:13)
--- NOTE | 2021-09-16 13:11 | RAD ---
HISTORYFEVER, HYPOTENSIONSTUDYCHEST x-ray, 1 VIEWCOMPARISONX-ray 09/15/2021FINDINGSThe trachea is midline. The cardiac silhouette is unremarkable .Lungs appear clear. No pneumothorax or pleural effusion is seen.No acute bony abnormality is seen.IMPRESSIONNo acute cardiopulmonary abnormality is seen.Electronically signed by: Antonio Sesay (Sep 16, 2021 13:10:14)
[2021-09-16 16:23] VITALS: BP 124/58
--- NOTE | 2021-09-28 16:05 | PCM.PROG ---
Progress Note - Progress Note for Day of Date of Exam: 09/15/21 - Subjective Subjective: Patient is a 76 year old white female who was admitted due to hyperglycemia, fever, and weakness. Patient continues to have a low grade fever at night. Patient reports improvement in general symptoms. Patient reports she is unsure of how she takes her insulin at home. Patient has had an elevated heart rate, EKG reviewed. Plan for VQ scan in am and d/c after that pending results. No other concerns a present. - Past Medical Family Social History Past Med/Fam/Surg Hx: No changes since H&P Allergies: Allergies acetaminophen [From Lortab] Allergy (Verified 07/28/18 20:35) aluminum hydroxide [From Ascriptin] Allergy (Verified 07/28/18 20:35) aripiprazole [From Abilify] Allergy (Verified 07/28/18 20:35) aspirin [From Ascriptin] Allergy (Verified 07/28/18 20:35) bee pollen Allergy (Verified 07/28/18 20:35) calcium carbonate [From Ascriptin] Allergy (Verified 07/28/18 20:35) coconut oil Allergy (Verified 07/28/18 20:35) codeine Allergy (Verified 07/28/18 20:35) hydrocodone [From Lortab] Allergy (Verified 07/28/18 20:35) latex Allergy (Verified 07/28/18 20:35) levetiracetam [From Keppra] Allergy (Verified 07/28/18 20:35) metformin Allergy (Verified 07/28/18 20:35) niacin Allergy (Verified 07/28/18 20:35) oxycodone [From Percocet] Allergy (Verified 07/28/18 20:35) pregabalin [From Lyrica] Allergy (Verified 07/28/18 20:35) propoxyphene [From Darvon-N] Allergy (Verified 07/28/18 20:35) propranolol [From Inderal [place]] Allergy (Verified 07/28/18 20:35) red dye Allergy (Verified 07/28/18 20:35) rosuvastatin [From Crestor] Allergy (Verified 07/28/18 20:35) IV DYE Allergy (Uncoded 01/05/20 07:23) - Review of Systems ROS: No change since H&P - Vital Signs and I&O's Vital Signs: Temperature 98.0 F Pulse Rate [Apical] 112 Pulse Rate 79 Respiratory Rate 16 Blood Pressure [Left Arm] 194/80 Blood Pressure [Right Arm] 187/88 Blood Pressure 124/58 O2 Sat by Pulse Oximetry 98 - Physical Exam Oriented: Normal, Time, Person, Place Eyes: Normal Ear: Normal Nose: Normal Throat: Normal Respiratory: Normal Cardiovascular: Tachycardia : Normal Auscultation: Bowel Sounds: Normal Tenderness: Normal Skin: Normal Musculoskeletal: Normal, Instability Psychiatric: Normal Mood Description: Calm Affect: Normal Speech Pattern: Clear, Appropriate - Laboratory and Diagnostics Result Diagrams: 09/16/21 04:40 09/16/21 04:40 Labs: Laboratory WBC 7.7 X10^3/uL (3.6-10.0) 09/16/21 04:40 RBC 3.42 X10^6/uL (3.5-5.4) L 09/16/21 04:40 Hgb 10.1 g/dL (12.0-16.0) L 09/16/21 04:40 Hct 29.8 % (36.0-47.0) L 09/16/21 04:40 MCV 87.3 fL (80.0-100.0) 09/16/21 04:40 MCH 29.4 pg (27.0-34.0) 09/16/21 04:40 MCHC 33.7 g/dL (33.0-35.0) 09/16/21 04:40 RDW 12.7 % (11.6-16.5) 09/16/21 04:40 Plt Count 252 X10^3/uL (150.0-450.0) 09/16/21 04:40 Plt Count Comment Adequate (ADEQUATE) 09/15/21 04:45 MPV 8.6 fL (7.4-11.0) 09/16/21 04:40 Neut % (Auto) 49.2 % (42.0-75.0) 09/16/21 04:40 Lymph % (Auto) 29.7 % (21.0-51.0) 09/16/21 04:40 [place] % (Auto) 13.0 % (0.0-13.0) 09/16/21 04:40 Eos % (Auto) 6.9 % (0.9-2.9) H 09/16/21 04:40 Baso % (Auto) 1.2 % (0.2-1.0) H 09/16/21 04:40 Neut # (Auto) 3.8 x10^3/uL (2.2-4.8) 09/16/21 04:40 Lymph # (Auto) 2.3 X10^3/uL (1.3-2.9) 09/16/21 04:40 [place] # (Auto) 1.0 x10^3/uL (0.3-0.8) H 09/16/21 04:40 Eos # (Auto) 0.5 x10^3/uL (0.0-0.2) H 09/16/21 04:40 Baso # (Auto) 0.1 X10^3/uL (0.0-0.1) 09/16/21 04:40 Absolute Nucleated RBC 0.0 /100WBC 09/16/21 04:40 Total Counted 100 09/15/21 04:45 Neutrophils % (Manual) 62 % (39-76) 09/15/21 04:45 Lymphocytes % (Manual) 25 % (13-43) 09/15/21 04:45 Monocytes % (Manual) 8 % (4-9) 09/15/21 04:45 Eosinophils % (Manual) 5 % (0-6) 09/15/21 04:45 Plt Morphology Comment Normal (NORMAL) 09/15/21 04:45 RBC Morphology Normal (NORMAL) 09/15/21 04:45 PT 15.1 SECONDS (11.8-14.3) 09/13/21 04:57 INR Target Range - 09/13/21 04:57 INR 1.25 (0.8-1.3) 09/13/21 04:57 APTT 24.5 SECONDS (22.9-36.5) 09/13/21 04:57 PTT Comment - 09/13/21 04:57 Sodium 140 mmol/L (136-145) 09/16/21 04:40 Corrected Sodium 141 mmol/L (136-145) 09/16/21 04:40 Potassium 4.2 mmol/L (3.5-5.1) 09/16/21 04:40 Chloride 110 mmol/L (98-107) H 09/16/21 04:40 Carbon Dioxide 22.0 mmol/L (21-32) 09/16/21 04:40 BUN 13 mg/dL (7-18) 09/16/21 04:40 Creatinine 0.91 mg/dL (0.55-1.02) 09/16/21 04:40 Est GFR (MDRD) Af Amer > 60 (>60) 09/16/21 04:40 Est GFR (MDRD) Non-Af > 60 (>60) 09/16/21 04:40 Glucose 140 mg/dL (65-99) H 09/16/21 04:40 POC Glucose (mg/dL) 202 mg/dL (65-99) H 09/16/21 11:36 Calcium 7.8 mg/dL (8.5-10.1) L 09/16/21 04:40 Corrected Calcium 9.1 mg/dL (8.5-10.1) 09/16/21 04:40 Magnesium 1.5 mg/dL (1.7-2.9) L 09/15/21 04:45 Total Bilirubin 0.30 mg/dL (0.2-1.0) 09/16/21 04:40 AST 15 Units/L (15-37) 09/16/21 04:40 ALT 22 Units/L (12-78) 09/16/21 04:40 Alkaline Phosphatase 100 Units/L (46-116) 09/16/21 04:40 Creatine Kinase 493 Units/L (26-192) H 09/13/21 04:57 CK-MB (CK-2) 4.8 ng/mL (0-4.0) H* 09/13/21 04:57 CK/CKMB % Calc 1.0 % (<4) 09/13/21 04:57 Troponin I High Sens 9.8 ng/L (4.0-60.0) 09/13/21 04:57 Total Protein 5.7 g/dL (6.4-8.2) L 09/16/21 04:40 Albumin 2.4 g/dL (3.4-5.0) L 09/16/21 04:40 Globulin 3.3 g/dL (2.5-4.5) 09/16/21 04:40 Albumin/Globulin Ratio 0.7 Ratio (1.1-2.1) L 09/16/21 04:40 Triglycerides 343 mg/dL (0-150) H 09/13/21 04:57 Cholesterol 204 mg/dL (0-200) H 09/13/21 04:57 LDL Cholesterol, Calc 98 mg/dL (0-100) 09/13/21 04:57 HDL Cholesterol 37 mg/dL (40-60) L 09/13/21 04:57 Cholesterol/HDL Ratio 5.5 (0.0-5.0) H 09/13/21 04:57 Specimen Type Random urine 09/14/21 14:10 Urine Color Pale yellow (YELLOW) 09/14/21 14:10 Urine Appearance Slightly hazy (CLEAR) 09/14/21 14:10 Urine pH 5.0 (5.0 - 8.0) 09/14/21 14:10 Ur Specific [place] 1.010 (1.000-1.030) 09/14/21 14:10 Urine Protein Negative (NEGATIVE) 09/14/21 14:10 Urine Glucose (UA) 2+ (NEGATIVE) 09/14/21 14:10 Urine Ketones Negative (NEGATIVE) 09/14/21 14:10 Urine Occult Blood Negative (NEGATIVE) 09/14/21 14:10 Urine Nitrite Negative (NEGATIVE) 09/14/21 14:10 Urine Bilirubin Negative (NEGATIVE) 09/14/21 14:10 Urine Urobilinogen Normal (NORMAL) 09/14/21 14:10 Ur Leukocyte Esterase 1+ (NEGATIVE) 09/14/21 14:10 Urine RBC None seen /HPF (0-3) 09/14/21 14:10 Urine WBC 5-10 /HPF (0-5) A 09/14/21 14:10 Ur Squamous Epith Cells Few /HPF (NEGATIVE) 09/14/21 14:10 Urine Bacteria 1+ /HPF (NEGATIVE) 09/14/21 14:10 Ur Culture Indicated? No/not indicated 09/14/21 14:10 SARS-CoV-2 (PCR) Negative (NEGATIVE) 09/13/21 01:50 Influenza Type A (PCR) Negative (NEGATIVE) 09/13/21 01:50 Influenza Type B (PCR) Negative (NEGATIVE) 09/13/21 01:50 RSV (PCR) Negative (NEGATIVE) 09/13/21 01:50 - Plan (1) Acute hyperglycemia Status: Acute Plan: Insulin as ordered. Monitor. Repeat labs in am (2) Fever Status: Acute Plan: UA (3) Generalized weakness Status: Acute Plan: PT (4) Sinus tachycardia Status: Acute Plan: EKG. VQ scan (5) CARLO (acute kidney injury) Status: Acute Plan: IV fluids (6) Acute dehydration Status: Acute
--- NOTE | 2021-09-28 16:11 | PCM.DCPLAN ---
Discharge Plan - Discharge Plan Hospital Course: ADmit date09/12/21 Discharge date 09/16/21 DOS 09/16/21 Admit diagnosis1. Diabetes mellitus; type 2- uncontrolled. 2. Hypotension; improved. 3. Generalized weakness. Discharge diagnosis(1) Acute hyperglycemia (2) Fever (3) Generalized weakness (4) Sinus tachycardia (5) CARLO (acute kidney injury) (6) Acute dehydration Hospital course Patient is a 76 year old female who was admitted due to hyperglycemia, dehydration, and weakness and fever. Patients fever improved. Glucose improved. Patient was treated with IV fluids, abx., and insulin. According to PCP patient is not very compliant with medications especially in regards to DM management at home. Patient states shes unsure of her dose and how she is supposed to take medications. Patient did develop tachycardia and VQ scan was performed to r/o PE which was negative. Kidney function improved to normal. Labs were unremarkable. Patient was discharged home with a list of medications to take and instructed to follow up with PCP in 1 week or sooner. Discharge time >35 mins Disposition: HOME HEALTH SERVICE Condition: Stable Health Concerns: Post Hospitalization: new medications and changes needed to prevent readmission or further decline. Pt educated and given instructions on all concerns. Care Plan Goals: Problem: Pain/Alteration in Comfort Goal: Improve/ Resolve Pain; Achieve Pain Tolerance Instructions: Take pain medications as prescribed. Contact your primary care provider if your pain is unrelieved or worsens. Follow up with primary care provider as directed. Plan of Treatment: Continue with present treatment and follow up plan. Pt is to keep follow up appointment as instructed and take medications as ordered. Prescriptions: No Action amlodipine 5 mg tablet 5 mg PO DAILY colesevelam 625 mg tablet 1,250 mg PO TID cyanocobalamin (vitamin B-12) 1,000 mcg/mL solution 1,000 mcg IM WEEKLY doxepin 25 mg capsule 25 mg PO HS duloxetine 60 mg capsule,delayed release(DR/EC) 60 mg PO QHS duloxetine 30 mg capsule,delayed release(DR/EC) 30 mg PO QHS ezetimibe 10 mg tablet 10 mg PO DAILY famotidine 20 mg tablet 20 mg PO BID insulin lispro [Humalog KwikPen Insulin] 100 unit/mL insulin pen See Rx Instructions .ROUTE .COMPLEX PRN levocetirizine 5 mg tablet 5 mg PO QHS levothyroxine 50 mcg tablet 50 mcg PO DAILY magnesium oxide 400 mg (241.3 mg magnesium) tablet 400 mg PO DAILY metoclopramide HCl 5 mg tablet 5 mg PO QID metoprolol succinate 50 mg tablet extended release 24 hr 50 mg PO DAILY pantoprazole 40 mg tablet,delayed release (DR/EC) 40 mg PO BID ropinirole 2 mg tablet 2 mg PO DAILY tizanidine 4 mg tablet 4 - 8 mg PO TID PRN tramadol 50 mg tablet 50 mg PO BID PRN Tresiba FlexTouch U-100 100 unit/mL (3 mL) insulin pen 30 unit SUBCUT DAILY - Follow ups/Referrals Follow ups/Referrals: ANA HAWK [Nurse Practitioner] - 09/23/21 1:30 pm
--- NOTE | 2021-10-18 00:59 | DR.H&P ---
H&P - History & Physical for Day of: H&P Date: 09/12/21 - Chief Complaint Chief Complaint: high blood sugar - History of Present Illness History of Present Illness: The patient is a 76-year-old elderly white female who was admitted to [facility] via the ER due to uncontrolled hyperglycemia and hypotension. The patient reportedly had blood sugars in the 600-700 range at home and was given insulin prior to admission. BP was 80s/50s but quickly resolved. The patient continues to complain of marked generalized weakness. PMH DM, HTN, HLD and multiple other conditions. - Past Medical History Past Medical History: [place], Hypertension, Diabetes, Hypothyroidism, COPD, Arthritis Additional Medical History: Diabetic Neuropathy, Chronic Back Pain, Fibrocystic Breast Disease, Crohns Disease, Fibromyalgia, Mitral Valve Leak, Valvular Heart Disease, Bronchitits, Uterine Fibroids, Diarrhea, Fibromyalgia, Restless Leg Syndrome, Parathyroid Disease, Previous Blood Transfusion - Past Surgical History Surgical History: Cholecystectomy, Hysterectomy, Mastectomy, Thyroidectomy Additional Surgical History: Bilateral Mastectomy due to stones - Family History Family Medical History: Diabetes Mellitus, Cancer, [place] - Social History Does patient currently use any type of tobacco product: No Have you used tobacco products in the last 12 months: No Type of Tobacco Use: None Does any household member use tobacco: No Alcohol Use: None Drug Use: None - Medications Home Medications: acetaminophen [From Lortab] Allergy (Verified 07/28/18 20:35) aluminum hydroxide [From Ascriptin] Allergy (Verified 07/28/18 20:35) aripiprazole [From Abilify] Allergy (Verified 07/28/18 20:35) aspirin [From Ascriptin] Allergy (Verified 07/28/18 20:35) bee pollen Allergy (Verified 07/28/18 20:35) calcium carbonate [From Ascriptin] Allergy (Verified 07/28/18 20:35) coconut oil Allergy (Verified 07/28/18 20:35) codeine Allergy (Verified 07/28/18 20:35) hydrocodone [From Lortab] Allergy (Verified 07/28/18 20:35) latex Allergy (Verified 07/28/18 20:35) levetiracetam [From Keppra] Allergy (Verified 07/28/18 20:35) metformin Allergy (Verified 07/28/18 20:35) niacin Allergy (Verified 07/28/18 20:35) oxycodone [From Percocet] Allergy (Verified 07/28/18 20:35) pregabalin [From Lyrica] Allergy (Verified 07/28/18 20:35) propoxyphene [From Darvon-N] Allergy (Verified 07/28/18 20:35) propranolol [From Inderal [place]] Allergy (Verified 07/28/18 20:35) red dye Allergy (Verified 07/28/18 20:35) rosuvastatin [From Crestor] Allergy (Verified 07/28/18 20:35) IV DYE Allergy (Uncoded 01/05/20 07:23) CONTINUE taking the following medications colesevelam 1,250 mg PO TID 09/13/21 [History] cyanocobalamin (vitamin B-12) 1,000 mcg IM WEEKLY 09/13/21 [History] insulin lispro [Humalog KwikPen Insulin] See Rx Instructions .ROUTE .COMPLEX PRN 09/13/21 [History] levothyroxine 50 mcg PO DAILY 09/13/21 [History] magnesium oxide 400 mg PO DAILY 09/13/21 [History] metoclopramide HCl 5 mg PO QID 09/13/21 [History] ropinirole 2 mg PO DAILY 09/13/21 [History] - Review of Systems Constitutional: See HPI Eyes: See HPI ENT: See HPI Respiratory: See HPI Cardiovascular: See HPI Gastrointestinal: See HPI Genitourinary: See HPI Musculoskeletal: See HPI Skin: See HPI Neurological: See HPI - Physical Exam Vital Signs: Temperature 98.0 F Pulse Rate [Apical] 112 Pulse Rate 79 Respiratory Rate 16 Blood Pressure [Left Arm] 194/80 Blood Pressure [Right Arm] 187/88 Blood Pressure 124/58 O2 Sat by Pulse Oximetry 98 Oriented: Normal, Time, Person, Place Eyes: Normal Ear: Normal Nose: Normal Throat: Normal Respiratory: Clear Throughout Cardiovascular: Normal : Normal Auscultation: Bowel Sounds: Normal Palpation: Normal Tenderness: Normal Skin: Normal Musculoskeletal: Normal, Instability Psychiatric: Normal Mood Description: Calm Affect: Normal Speech Pattern: Clear, Appropriate - Assessment/Plan (1) Acute hyperglycemia Status: Acute Plan: Admit. IV fluids. Insulin. FSBS ACHS. SSC. Rpeat labs in am. Hold BP meds. Monitor BP (2) Fever Qualifiers: Fever type: unspecified Qualified Code(s): R50.9 - Fever, unspecified Status: Acute (3) Generalized weakness Status: Acute (4) Sinus tachycardia Status: Acute (5) CARLO (acute kidney injury) Status: Acute (6) Acute dehydration Status: Acute - Allergies Allergies/Adverse Reactions: Allergies Allergy/AdvReac Type Severity Reaction Status Date / Time acetaminophen [From Lortab] Allergy Verified 07/28/18 20:35 aluminum hydroxide Allergy Verified 07/28/18 20:35 [From Ascriptin] aripiprazole [From Abilify] Allergy Verified 07/28/18 20:35 aspirin [From Ascriptin] Allergy Verified 07/28/18 20:35 bee pollen Allergy Verified 07/28/18 20:35 calcium carbonate Allergy Verified 07/28/18 20:35 [From Ascriptin] coconut oil Allergy Verified 07/28/18 20:35 codeine Allergy Verified 07/28/18 20:35 hydrocodone [From Lortab] Allergy Verified 07/28/18 20:35 latex Allergy Verified 07/28/18 20:35 levetiracetam [From Keppra] Allergy Verified 07/28/18 20:35 metformin Allergy Verified 07/28/18 20:35 niacin Allergy Verified 07/28/18 20:35 oxycodone [From Percocet] Allergy Verified 07/28/18 20:35 pregabalin [From Lyrica] Allergy Verified 07/28/18 20:35 propoxyphene [From Darvon-N] Allergy Verified 07/28/18 20:35 propranolol [From Inderal LA] Allergy Verified 07/28/18 20:35 red dye Allergy Verified 07/28/18 20:35 rosuvastatin [From Crestor] Allergy Verified 07/28/18 20:35 IV DYE Allergy Uncoded 01/05/20 07:23
== END 2021-09-16 16:25 | disposition home or self-care (01) | DRG 639 ==
LOC: ER 22:33 → ICU 09-13 03:01
PROVIDERS: ADMIT Internal Medicine; ATTEND Internal Medicine

== ENCOUNTER 2024-10-15 16:02 | Observation (INO) ==
[2024-10-15] MEDS ORDERED: NS 250 ML IV 25 ML IV PRN (16:30)
--- NOTE | 2024-10-15 16:46 | EKG ---
Test Reason : pancreatitis, dehydration Blood Pressure : */* mmHG Vent. Rate : 92 BPM Atrial Rate : 92 BPM P-R Int : 138 ms QRS Dur : 118 ms QT Int : 380 ms P-R-T Axes : 69 108 28 degrees QTc Int : 469 ms Normal sinus rhythm Incomplete right bundle branch block Right ventricular hypertrophy with repolarization abnormality Nonspecific T wave abnormality Abnormal ECG No previous ECGs available Confirmed by Tristan Boswell MD ([id number]) on 10/16/2024 7:20:49 AM Referred By: Confirmed By: Tristan Boswell MD
[2024-10-15] MEDS: PROTONIX INJ 40 MG VIAL IVP SCH (17:06)
[2024-10-15] MEDS: NS 1,000 ML IV 1,000 ML IV SCH (17:06)
[2024-10-15 17:27] LABS: BASOPHILS # (AUTO) 0.1 X10^3/uL (0.0-0.1); EOSINOPHILS # (AUTO) 0.3 x10^3/uL (0.0-0.2); LYMPHOCYTES # (AUTO) 2.9 X10^3/uL (1.3-2.9)
[2024-10-15 17:30] LABS: EOSINOPHILS % (AUTO) 2.7 % (0.9-2.9); HEMATOCRIT 41.3 % (36.0-47.0); HEMOGLOBIN 13.7 g/dL (12.0-16.0); LYMPHOCYTES % (AUTO) 30.9 % (21.0-51.0); MEAN CORPUSCULAR HEMOGLOBIN 30.5 pg (27.0-34.0); MEAN CORPUSCULAR HGB CONC 33.1 g/dL (33.0-35.0); MEAN CORPUSCULAR VOLUME 91.9 fL (80.0-100.0); MEAN PLATELET VOLUME 7.8 fL (7.4-11.0); MONOCYTES # (AUTO) 0.8 x10^3/uL (0.3-0.8); MONOCYTES % (AUTO) 7.9 % (0.0-13.0); NEUTROPHILS # (AUTO) 5.5 x10^3/uL (2.2-4.8); NEUTROPHILS % (AUTO) 57.5 % (42.0-75.0); PLATELET COUNT 266 X10^3/uL (150.0-450.0); RED CELL DISTRIBUTION WIDTH 14.7 % (11.6-16.5); WHITE BLOOD COUNT 9.5 X10^3/uL (3.6-10.0)
[2024-10-15 17:50] LABS: ALBUMIN 3.1 g/dL (3.4-5.0); CALCIUM 8.7 mg/dL (8.5-10.1); COR CA(FOR HYPOALB) 9.4 mg/dL (8.5-10.1); CREATININE 1.23 mg/dL (0.55-1.02); MAGNESIUM 0.8 mg/dL (2.0-2.9); POTASSIUM 4.4 mmol/L (3.5-5.1); TOTAL PROTEIN 6.7 g/dL (6.4-8.2)
[2024-10-15 18:03] VITALS: BMI 31.7
[2024-10-15] MEDS: SNACK - Diabetic Appropriate PO SCH (19:01)
[2024-10-15] MEDS: ZOSYN VIAL 3.375 GRAMS 3.375 G in NS 100 ML IV 100 ML IV SCH (19:18)
--- NOTE | 2024-10-15 20:58 | CT ---
EXAM:CT ABDOMEN AND PELVIS WITHOUT CONTRASTHISTORY:Pancreatitis, dehydration;COMPARISON:CT dated 01/05/2020.TECHNIQUE:Axial CT images were obtained through the abdomen and pelvis without contrast. Coronal and sagittal reformatted images were included.All CT scans at this facility use dose modulation, iterative reconstruction, and/or weight based dosing when appropriate to reduce radiation dose to as low as reasonably achievable.FINDINGS:Please note that without the use of intravenous contrast, evaluation of organ parenchyma is limited.Mild dependent lung atelectasis. Small hiatal hernia.Unenhanced liver is unremarkable. Prior cholecystectomy. No biliary dilatation. Spleen is normal. No significant peripancreatic edema or inflammation. No peripancreatic collection. Adrenals are normal. No hydronephrosis or perinephric stranding. Moderate aortoiliac atherosclerotic calcifications without aneurysm.No abnormally distended or focally thickened bowel loops. Mild colonic stool burden. No free peritoneal air or fluid. Unremarkable urinary bladder. Absent uterus. No free pelvic fluid.No acute osseous findings. Moderate lumbar spondylosis.IMPRESSION:No acute findings in the abdomen or pelvis.THIS IS AN ELECTRONICALLY VERIFIED FINAL REPORT10/15/2024 8:55 PM - Electronically signed by Jaime Pandey MD
[2024-10-16 04:55] LABS: BASOPHILS # (AUTO) 0.1 X10^3/uL (0.0-0.1); BASOPHILS % (AUTO) 0.8 % (0.2-1.0); EOSINOPHILS # (AUTO) 0.3 x10^3/uL (0.0-0.2); EOSINOPHILS % (AUTO) 3.5 % (0.9-2.9); HEMATOCRIT 36.9 % (36.0-47.0); HEMOGLOBIN 12.4 g/dL (12.0-16.0); LYMPHOCYTES % (AUTO) 39.4 % (21.0-51.0); MEAN CORPUSCULAR HEMOGLOBIN 30.8 pg (27.0-34.0); MEAN CORPUSCULAR HGB CONC 33.6 g/dL (33.0-35.0); MEAN CORPUSCULAR VOLUME 91.6 fL (80.0-100.0); MEAN PLATELET VOLUME 7.9 fL (7.4-11.0); MONOCYTES # (AUTO) 0.7 x10^3/uL (0.3-0.8); MONOCYTES % (AUTO) 9.5 % (0.0-13.0); NEUTROPHILS # (AUTO) 3.5 x10^3/uL (2.2-4.8); NEUTROPHILS % (AUTO) 46.8 % (42.0-75.0); PLATELET COUNT 271 X10^3/uL (150.0-450.0); RED BLOOD COUNT 4.03 X10^6/uL (3.5-5.4); RED CELL DISTRIBUTION WIDTH 14.8 % (11.6-16.5); WHITE BLOOD COUNT 7.5 X10^3/uL (3.6-10.0)
[2024-10-16 05:15] LABS: ALBUMIN 2.8 g/dL (3.4-5.0); CALCIUM 8.2 mg/dL (8.5-10.1); CARBON DIOXIDE 25.8 mmol/L (21-32); COR CA(FOR HYPOALB) 9.2 mg/dL (8.5-10.1); CREATININE 1.32 mg/dL (0.55-1.02); POTASSIUM 4.4 mmol/L (3.5-5.1); TOTAL PROTEIN 5.6 g/dL (6.4-8.2)
[2024-10-16 05:46] LABS: BILIRUBIN,URINE NEGATIVE (NEGATIVE); BLOOD/HEMOGLOBIN,URINE NEGATIVE (NEGATIVE); GLUCOSE, URINE NEGATIVE (NEGATIVE); KETONES,URINE NEGATIVE (NEGATIVE); LEUKOCYTE ESTERASE ,URINE NEGATIVE (NEGATIVE); NITRITES,URINE NEGATIVE (NEGATIVE); PROTEIN,URINE 2+ (NEGATIVE); UROBILINOGEN,URINE NORMAL (NORMAL)
[2024-10-16 05:48] LABS: APPEARANCE,URINE HAZY (CLEAR); COLOR,URINE YELLOW (YELLOW)
[2024-10-16 05:55] LABS: BACTERIA,URINE NEGATIVE /HPF (NEGATIVE); RBC,URINE 0-2 /HPF (0-3); SQUAMOUS EPITHELIAL CELL,UR RARE /HPF (NEGATIVE); TRANSITIONAL EPI CELLS,URINE RARE /HPF (NEGATIVE)
--- NOTE | 2024-10-16 07:35 | RAD ---
EXAM: CHEST, 1 VIEW HISTORY: Pancreatitis, dehydration; COMPARISON: No relevant prior studies were available for comparison at the time of interpretation. TECHNIQUE: CHEST, 1 VIEW FINDINGS: Chest: Lines and tubes: None Mediastinum: Cardiac and mediastinal shadow is within normal limits for size and contour. Pulmonary vessels: No pulmonary vascular congestion. Lung nunez: No suspicious airspace opacity. Pleura: No effusion. No pneumothorax. Bones and soft tissues: No acute osseous or soft tissue abnormality. IMPRESSION: 1. No acute cardiopulmonary abnormality THIS IS AN ELECTRONICALLY VERIFIED FINAL REPORT 10/16/2024 7:31 AM - Electronically signed by Gordo Stovall MD
[2024-10-16] MEDS: DULCOLAX SUPPOSITORY 10 MG RECTAL ONE (08:52)
[2024-10-16] MEDS: LOVENOX INJ 40 MG SYR SC SCH (08:52)
[2024-10-16] MEDS: ZOFRAN INJ 4 MG VIAL IVP PRN (10:23)
[2024-10-16] MEDS: MORPHINE SULFATE INJ 2 MG INJ IVP PRN (10:24)
--- NOTE | 2024-10-16 17:33 | DR.H&P ---
H&P History & Physical for Day of: H&P Date: 10/15/24 Chief Complaint Chief Complaint: FEVER, ABDOMINAL PAIN, NAUSEA History of Present Illness History of Present Illness: PT IS 79 WF, DIRECT ADMIT FROM DR HITCHCOCK'S OFFICE WITH CO DIFFUSE ABDOMINAL ONSET THE END OF LAST WEEK WITH FEVER AND NAUSEA. PT HAS DIFFUSE UPPER ABODMINAL TENDERNESS ON PALPATION WITH PMH OF DM AND HX OF PANCREATITIS. PT REPORT PAIN IN SIMILAR. PT HAS PMH OF RENAL DISEASE, GERD, OA, HTN. NEUROPATHY, AND THYROID DISEASE. PT ADMITTED FOR TREATMENT AND EVALUATION OF ACUTE ILLNESS. Past Medical History Past Medical History: Anemia, Arthritis, COPD, Coronary Artery Disease, Diabetes, Dyslipidemia, GERD, Hypertension, Hypothyroidism, [place] and Renal Disease Additional Medical History: Diabetic Neuropathy, Chronic Back Pain, Fibrocystic Breast Disease, Crohns Disease, Fibromyalgia, Mitral Valve Leak, Valvular Heart Disease, Bronchitits, Uterine Fibroids, Diarrhea, Fibromyalgia, Restless Leg Syndrome, Parathyroid Disease, Previous Blood Transfusion Past Surgical History Surgical History: Cholecystectomy, Hysterectomy, Mastectomy, Tonsillectomy and Other Additional Surgical History: Bilateral Mastectomy due to stones Family History Family Medical History: [place], Coronary Artery Disease and Hypertension Social History Does patient currently use any type of tobacco product: No Type of Tobacco Use: None Does any household member use tobacco: No Alcohol Use: None Drug Use: None Medications Home Medications: Home Medications Medication Instructions Recorded Confirmed Type amlodipine 10 mg tablet 10 mg PO QDAY 02/21/24 10/15/24 History colesevelam 625 mg tablet 1,250 mg PO TID PRN 02/21/24 10/15/24 History doxepin 25 mg capsule 25 mg PO QPM 02/21/24 10/15/24 History duloxetine 30 mg capsule,delayed 30 mg PO QPM 02/21/24 10/15/24 History release duloxetine 60 mg capsule,delayed 60 mg PO DAILY 02/21/24 10/15/24 History release ezetimibe 10 mg tablet 10 mg PO QDAY 02/21/24 10/15/24 History levothyroxine 75 mcg tablet 75 mcg PO QAM 02/21/24 10/15/24 History metoprolol succinate 100 mg 100 mg PO QDAY 02/21/24 10/15/24 History tablet,extended release 24 hr pantoprazole 40 mg tablet,delayed 40 mg PO BID 02/21/24 10/15/24 History release ropinirole 2 mg tablet 2 mg PO TID 02/21/24 10/15/24 History gabapentin 100 mg capsule 100 mg PO HS 10/15/24 10/16/24 History magnesium oxide 400 mg (241.3 mg 400 mg PO QDAY 10/15/24 10/15/24 History magnesium) tablet dapagliflozin propanediol 10 mg 10 mg PO DAILY 10/16/24 10/16/24 History tablet (Farxiga) finerenone 10 mg tablet (Kerendia) 10 mg PO DAILY 10/16/24 10/16/24 History insulin lispro 100 unit/mL See Rx Instructions .Route 10/16/24 10/16/24 History subcutaneous pen (Humalog KwikPen .COMPLEX PRN (U-100) Insulin) tramadol 50 mg tablet 50 mg PO QDAY 10/16/24 10/16/24 History Allergies Allergies Allergy/AdvReac Type Severity Reaction Status Date / Time acetaminophen [From Lortab] Allergy Verified 02/21/24 22:14 aluminum hydroxide Allergy Verified 02/21/24 22:14 [From Ascriptin] aripiprazole [From Abilify] Allergy Verified 02/21/24 22:14 aspirin [From Ascriptin] Allergy Verified 02/21/24 22:14 bee pollen Allergy Verified 02/21/24 22:14 calcium carbonate Allergy Verified 02/21/24 22:14 [From Ascriptin] coconut oil Allergy Verified 02/21/24 22:14 codeine Allergy Verified 02/21/24 22:14 hydrocodone [From Lortab] Allergy Verified 02/21/24 22:14 latex Allergy Verified 02/21/24 22:14 levetiracetam [From Keppra] Allergy Verified 02/21/24 22:14 metformin Allergy Verified 02/21/24 22:14 niacin Allergy Verified 02/21/24 22:14 oxycodone [From Percocet] Allergy Verified 02/21/24 22:14 pregabalin [From Lyrica] Allergy Verified 02/21/24 22:14 propoxyphene [From Darvon-N] Allergy Verified 02/21/24 22:14 propranolol [From Inderal LA] Allergy Verified 02/21/24 22:14 red dye Allergy Verified 02/21/24 22:14 rosuvastatin [From Crestor] Allergy Verified 02/21/24 22:14 IV DYE Allergy Uncoded 02/21/24 22:14 Labs 10/16/24 04:28 10/16/24 04:28 Labs: Laboratory WBC 7.5 X10^3/uL (3.6-10.0) 10/16/24 04:28 RBC 4.03 X10^6/uL (3.5-5.4) 10/16/24 04:28 Hgb 12.4 g/dL (12.0-16.0) 10/16/24 04:28 Hct 36.9 % (36.0-47.0) 10/16/24 04:28 MCV 91.6 fL (80.0-100.0) 10/16/24 04: MCH 30.8 pg (27.0-34.0) 10/16/24 04: MCHC 33.6 g/dL (33.0-35.0) 10/16/24 04: RDW 14.8 % (11.6-16.5) 10/16/24 04:28 Plt Count 271 X10^3/uL (150.0-450.0) 10/16/24 04:28 MPV 7.9 fL (7.4-11.0) 10/16/24 04:28 Neut % (Auto) 46.8 % (42.0-75.0) 10/16/24 04: Lymph % (Auto) 39.4 % (21.0-51.0) 10/16/24 04:28 [place] % (Auto) 9.5 % (0.0-13.0) 10/16/24 04:28 Eos % (Auto) 3.5 % (0.9-2.9) H 10/16/24 04:28 Baso % (Auto) 0.8 % (0.2-1.0) 10/16/24 04:28 Neut # (Auto) 3.5 x10^3/uL (2.2-4.8) 10/16/24 04:28 Lymph # (Auto) 3.0 X10^3/uL (1.3-2.9) H 10/16/24 04:28 [place] # (Auto) 0.7 x10^3/uL (0.3-0.8) 10/16/24 04:28 Eos # (Auto) 0.3 x10^3/uL (0.0-0.2) H 10/16/24 04:28 Baso # (Auto) 0.1 X10^3/uL (0.0-0.1) 10/16/24 04:28 Absolute Nucleated RBC 0.0 /100WBC 10/16/24 04:28 Sodium 143 mmol/L (136-145) 10/16/24 04:28 Corrected Sodium 143 mmol/L (136-145) 10/16/24 04:28 Potassium 4.4 mmol/L (3.5-5.1) 10/16/24 04:28 Chloride 107 mmol/L (98-107) 10/16/24 04:28 Carbon Dioxide 25.8 mmol/L (21-32) 10/16/24 04:28 BUN 17 mg/dL (7-18) 10/16/24 04:28 Creatinine 1.32 mg/dL (0.55-1.02) H 10/16/24 04:28 Est GFR (MDRD) Af Amer 50 (>60) L 10/16/24 04:28 Est GFR (MDRD) Non-Af 41 (>60) L 10/16/24 04:28 Glucose 120 mg/dL (65-99) H 10/16/24 04:28 POC Glucose (mg/dL) 170 mg/dL (65-99) H 10/15/24 16:58 Lactic Acid 1.4 mmol/L (0.4-2.0) 10/15/24 19:23 Calcium 8.2 mg/dL (8.5-10.1) L 10/16/24 04:28 Corrected Calcium 9.2 mg/dL (8.5-10.1) 10/16/24 04:28 Magnesium 0.9 mg/dL (2.0-2.9) L 10/16/24 04:28 Total Bilirubin 0.50 mg/dL (0.2-1.0) 10/16/24 04:28 AST 20 Units/L (15-37) 10/16/24 04:28 ALT 31 Units/L (12-78) 10/16/24 04:28 Alkaline Phosphatase 71 Units/L (46-116) 10/16/24 04:28 Troponin I High Sens 5.0 ng/L (4.0-60.0) 10/15/24 17:14 Total Protein 5.6 g/dL (6.4-8.2) L 10/16/24 04:28 Albumin 2.8 g/dL (3.4-5.0) L 10/16/24 04:28 Globulin 2.8 g/dL (2.5-4.5) 10/16/24 04:28 Albumin/Globulin Ratio 1.0 Ratio (1.1-2.1) L 10/16/24 04:28 Amylase 46 Units/L (25-115) 10/15/24 17:14 Lipase 53 Units/L (16-77) 10/15/24 17:14 Specimen Type Clean catch urine 10/16/24 05:35 Urine Color Yellow (YELLOW) 10/16/24 05:35 Urine Appearance Hazy (CLEAR) 10/16/24 05:35 Urine pH 6.0 (5.0 - 8.0) 10/16/24 05:35 Ur Specific [place] 1.020 (1.000-1.030) 10/16/24 05:35 Urine Protein 2+ (NEGATIVE) 10/16/24 05:35 Urine Glucose (UA) Negative (NEGATIVE) 10/16/24 05:35 Urine Ketones Negative (NEGATIVE) 10/16/24 05:35 Urine Blood Negative (NEGATIVE) 10/16/24 05:35 Urine Nitrite Negative (NEGATIVE) 10/16/24 05:35 Urine Bilirubin Negative (NEGATIVE) 10/16/24 05:35 Urine Urobilinogen Normal (NORMAL) 10/16/24 05:35 Ur Leukocyte Esterase Negative (NEGATIVE) 10/16/24 05:35 Urine RBC 0-2 /HPF (0-3) 10/16/24 05:35 Urine WBC 0-2 /HPF (0-5) 10/16/24 05:35 Ur Squamous Epith Cells Rare /HPF (NEGATIVE) 10/16/24 05:35 Ur Transition Epith Cell Rare /HPF (NEGATIVE) 10/16/24 05:35 Amorphous Sediment Trace /HPF (NEGATIVE) 10/16/24 05:35 Urine Bacteria Negative /HPF (NEGATIVE) 10/16/24 05:35 Urine Mucus Rare /HPF (NEGATIVE) 10/16/24 05:35 Ur Culture Indicated? No/not indicated 10/16/24 05:35 Review of Systems Constitutional: Fever, Chills and Weakness Eyes: No Symptoms Reported ENT: No Symptoms Reported Respiratory: No Symptoms Reported Cardiovascular: Edema Gastrointestinal: Nausea, Vomiting and Abdominal Pain Genitourinary: Retention Musculoskeletal: Back Pain Skin: No Symptoms Reported Neurological: Weakness Physical Exam Vital Signs: Vital Signs Temperature 98.5 F Temperature 98.5 F Pulse Rate 79 Pulse Rate 71 Respiratory Rate 20 Respiratory Rate 18 Respiratory Rate 20 Respiratory Rate 18 Respiratory Rate 20 Blood Pressure 115/58 Blood Pressure 145/69 O2 Sat by Pulse Oximetry 96 O2 Sat by Pulse Oximetry 96 Oriented: Normal Eyes: Normal Ear: Normal Nose: Normal Throat: Dry Respiratory: RLL Diminished and LLL Diminished Cardiovascular: Normal : Normal Palpation: Normal Tenderness: RLQ, LUQ and Epigastric Skin: Decreased Turgur and Other (MILD DIFFUSE PALLOR) Musculoskeletal: Back:Lumbar Psychiatric: Anxiety Mood Description: Anxious Affect: Anxious Speech Pattern: Clear and Appropriate Assessment/Plan (1) Pancreatitis: Qualifiers: Chronicity: acute Pancreatitis type: idiopathic Status: Inactive Plan: ADMIT, IV HYDRATION PAIN CONTROL, IV ATBX BC AND UC ON ADMISSION LACTIC ACID ON ADMISSION, BP CONTROL (2) COPD (chronic obstructive pulmonary disease): Status: Chronic (3) GERD (gastroesophageal reflux disease): Qualifiers: Esophagitis presence: esophagitis presence not specified Qualified Code(s): K21.9 - Gastro-esophageal reflux disease without esophagitis Status: Chronic (4) Crohn's disease: Status: Chronic (5) Renal disease: Status: Chronic (6) Diabetes mellitus, type 2: Qualifiers: Diabetes mellitus complication status: with kidney complications Diabetes mellitus complication detail: with chronic kidney disease 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
[2024-10-16] MEDS ORDERED: CONSULT PHARMACY - POTASSIUM & MAGNESIUM XX SCH (20:00)
[2024-10-16] MEDS: NovoLIN R (or HumuLIN R) SUBCUT PRN (21:12)
[2024-10-17] MEDS: MAGNESIUM SULFATE 1 GRAM/100 mL PREMIX 1 G/100 ML BAG IV SCH (00:25)
[2024-10-17 00:37] VITALS: RESP 18
[2024-10-17] MEDS ORDERED: MAGNESIUM SULFATE 1 GRAM/100 mL PREMIX 1 G/100 ML BAG IV ONE ×2 (03:15→03:25)
[2024-10-17 05:55] LABS: BASOPHILS # (AUTO) 0.1 X10^3/uL (0.0-0.1); BASOPHILS % (AUTO) 1.1 % (0.2-1.0); EOSINOPHILS # (AUTO) 0.3 x10^3/uL (0.0-0.2); EOSINOPHILS % (AUTO) 4.4 % (0.9-2.9); HEMATOCRIT 34.4 % (36.0-47.0); HEMOGLOBIN 11.5 g/dL (12.0-16.0); LYMPHOCYTES # (AUTO) 2.5 X10^3/uL (1.3-2.9); LYMPHOCYTES % (AUTO) 34.8 % (21.0-51.0); MEAN CORPUSCULAR HEMOGLOBIN 30.9 pg (27.0-34.0); MEAN CORPUSCULAR HGB CONC 33.3 g/dL (33.0-35.0); MEAN CORPUSCULAR VOLUME 92.8 fL (80.0-100.0); MONOCYTES # (AUTO) 0.6 x10^3/uL (0.3-0.8); NEUTROPHILS # (AUTO) 3.6 x10^3/uL (2.2-4.8); NEUTROPHILS % (AUTO) 50.7 % (42.0-75.0); PLATELET COUNT 268 X10^3/uL (150.0-450.0); WHITE BLOOD COUNT 7.1 X10^3/uL (3.6-10.0)
[2024-10-17 06:06] LABS: ALBUMIN 2.6 g/dL (3.4-5.0); CALCIUM 7.9 mg/dL (8.5-10.1); CARBON DIOXIDE 23.7 mmol/L (21-32); CREATININE 1.82 mg/dL (0.55-1.02); MAGNESIUM 3.2 mg/dL (2.0-2.9); POTASSIUM 4.4 mmol/L (3.5-5.1); TOTAL PROTEIN 5.6 g/dL (6.4-8.2)
[2024-10-17 09:18] VITALS: BP 151/65; PULSE 80; TEMP 98.7; O2SAT 96
[2024-10-17] MEDS: NS 1,000 ML IV 1,000 ML IV SCH (09:20)
== END 2024-10-17 11:30 | disposition home or self-care (01) ==
LOC: ICU
PROVIDERS: ADMIT Internal Medicine; ATTEND Internal Medicine
DX: K85.00 Idiopathic acute pancreatitis without necrosis or infection; I12.9 Hypertensive chronic kidney disease with stage 1 through stage 4 chronic kidney disease, or unspecified chronic kidney disease; Z90.13 Acquired absence of bilateral breasts and nipples; E03.8 Other specified hypothyroidism; E11.22 Type 2 diabetes mellitus with diabetic chronic kidney disease; N18.9 Chronic kidney disease, unspecified; I25.10 Atherosclerotic heart disease of native coronary artery without angina pectoris; E86.0 Dehydration; M19.90 Unspecified osteoarthritis, unspecified site; R94.31 Abnormal electrocardiogram [ECG] [EKG]; J44.9 Chronic obstructive pulmonary disease, unspecified; K52.89 Other specified noninfective gastroenteritis and colitis; K50.90 Crohn's disease, unspecified, without complications; R10.84 Generalized abdominal pain; Z79.4 Long term (current) use of insulin; E78.5 Hyperlipidemia, unspecified; E83.42 Hypomagnesemia; E11.65 Type 2 diabetes mellitus with hyperglycemia; K21.9 Gastro-esophageal reflux disease without esophagitis